=== PATIENT | male | born 1980 | race Caucasian/White ===

== ENCOUNTER 2017-01-30 05:38 | Observation (INO) | payer BC ==
[~2017-01-30] VITALS: Ht 170.2 cm; Wt 96.6 kg
[2017-01-30] VITALS (26 sets, daily range): BP systolic 110–138; BP diastolic 57–81; PULSE 78–101; RESP 6–18; Ht 170.2 cm; Wt 96.6 kg
[~2017-01-30 05:38] MED LIST: HEMOSTATIC MATRIX SYG ZFS ONE; THROMBIN 5000 UNIT VIAL TOP ONE
[2017-01-30] MEDS ORDERED: LACTATED RINGER'S 1,000 ML IV* SCH (06:30)
[2017-01-30] MEDS ORDERED: CEFAZOLIN 2 GM/50 ML (PMX) 50 ML IVPB SCH (06:30)
--- NOTE | 2017-01-30 06:59 | HPN ---
Date/Time of Note Date/Time of Note DATE: 01/30/17 TIME: 06:59 Interval H&P Admission Note Pt. seen H&P reviewed: No system changes JOSE SINGH MD January 30, 2017 06:59
[2017-01-30] MEDS ORDERED: BUPIVACAINE 0.25%/EPI (SDV) 30 ML INJ ONE (07:00)
[2017-01-30] MEDS ORDERED: THROMBIN 5000 UNIT VIAL ONE (07:00)
[2017-01-30] MEDS ORDERED: GELATIN SIZE 100 SPONGE ONE (07:00)
[2017-01-30] MEDS ORDERED: CYCL-319 PO (07:04)
[2017-01-30] MEDS ORDERED: LEVO175T6 PO (07:04)
[2017-01-30] MEDS ORDERED: TRAZ50TA18 PO (07:04)
[2017-01-30] MEDS ORDERED: POLYMYXIN/BACITRACIN 1L IRRIG ONE (07:04)
[2017-01-30] MEDS ORDERED: VALA500T PO (07:04)
[2017-01-30] MEDS ORDERED: SIMV-39 PO (07:04)
[2017-01-30] MEDS ORDERED: LISI20TA11 PO (07:04)
[2017-01-30] MEDS ORDERED: ALPR1TAB7 PO (07:04)
[2017-01-30] MEDS ORDERED: BUPR300T36 PO (07:04)
[2017-01-30] MEDS ORDERED: GABA300C16 PO ×2 (07:04)
[2017-01-30] MEDS ORDERED: METOCLOPRAMIDE 10 MG TAB ONE (07:29)
[2017-01-30] MEDS ORDERED: MIDAZOLAM 1 MG/ML 2 ML INJ ONE (07:29)
[2017-01-30] MEDS ORDERED: PROPOFOL 20 ML ONE ×2 (07:34→08:56)
[2017-01-30] MEDS ORDERED: METOCLOPRAMIDE 10 MG INJ ONE (07:35)
[2017-01-30] MEDS ORDERED: FENTAnyl 50 MCG/ML VIAL ONE ×2 (07:35→11:05)
[2017-01-30] MEDS ORDERED: DEXAMETHASONE 4 MG/ML 1 ML INJ ONE (08:25)
[2017-01-30] MEDS ORDERED: PROPOFOL 100 ML ONE ×2 (08:26→10:48)
[2017-01-30] MEDS ORDERED: POLYMYXIN/BACITRACIN 1L IRRIG IRR ONE (08:46)
[2017-01-30] MEDS ORDERED: BUPIVACAINE 0.25%/EPI (SDV) 30 ML INJ INJ ONE (08:46)
[2017-01-30] MEDS ORDERED: CEFAZOLIN 1 GM INJ ONE (08:56)
[2017-01-30] MEDS ORDERED: SUCCINYLCHOLINE CHLORIDE 100 MG/5 ML SYG IV ONE (08:56)
[2017-01-30] MEDS ORDERED: MEPERIDINE 100 MG INJ ONE (08:57)
[2017-01-30] MEDS ORDERED: NEOSTIGMINE 3 MG/3 ML SYRINGE ONE (10:12)
[2017-01-30] MEDS ORDERED: GLYCOPYRROLATE 0.4 MG INJ ONE (10:12)
[2017-01-30] MEDS ORDERED: METOCLOPRAMIDE 10 MG INJ IV PRN (10:30)
[2017-01-30] MEDS ORDERED: morphine (1 MG/ML) 10ML SYRINGE IV PRN ×2 (10:30)
[2017-01-30] MEDS ORDERED: ONDANSETRON 4 MG INJ IV PRN ×2 (10:30→11:30)
[2017-01-30] MEDS ORDERED: DIPHENHYDRAMINE 50 MG INJ IV PRN (10:30)
[2017-01-30] MEDS ORDERED: MEPERIDINE 25 MG INJ IV PRN (10:30)
[2017-01-30] MEDS ORDERED: OXYCODONE/ACETAMINOPHEN (5/325) TAB PO PRN ×4 (10:30→12:00)
[2017-01-30] MEDS ORDERED: FENTAnyl 50 MCG/ML VIAL IV PRN ×2 (10:30)
[2017-01-30] MEDS ORDERED: EPHEDrine SULFATE 50 MG/5 ML SYG ONE (11:14)
[2017-01-30] MEDS ORDERED: NACL 0.9% 3 ML SYG IV SCH (11:30)
[2017-01-30] MEDS ORDERED: NALOXONE (0.4 MG/ML) INJ IV PRN (11:30)
[2017-01-30] MEDS ORDERED: morphine 4 MG/ML VIAL IV PRN (12:00)
[2017-01-30] MEDS: morphine (1 MG/ML) 10ML SYRINGE IV PRN ×2 (12:16→12:21)
[2017-01-30] MEDS: FENTAnyl 50 MCG/ML VIAL IV PRN ×4 (12:29→12:54)
--- NOTE | 2017-01-30 13:29 | CONS ---
Date/Time of Note Date/Time of Note DATE: 01/30/17 TIME: 13:17 Assessment/Plan Assessment/Plan Problems: (1) Spinal stenosis of lumbar region with neurogenic claudication Status: Chronic Comment: He is postop. We will see how he improves but given the duration of time this will be a slow recovery. However expect his prognosis will be excellent. For now will be continued on his gabapentin to assist with a neurological discomfort (2) Diabetes mellitus type 1 Status: Chronic Comment: He has been maintained on insulin pump as an outpatient for some time successfully. Given that he is not sedated and actually able to contribute to his care will be continued on his insulin pump. We have orders for Accu-Cheks and orders in the chart to cover his medications. Please note that he does not use NovoLog insulin. Apidra will be the preferred insulin. If necessary he will supply is on Apidra insulin via Qualifiers: Qualified Code: E10.9 - Type 1 diabetes mellitus without complication (3) Essential hypertension Status: Chronic Comment: To continue MARCIA inhibitor therapy (4) Hyperlipidemia Status: Chronic Comment: Continue on statin therapy. Qualifiers: Qualified Code: E78.00 - Pure hypercholesterolemia (5) Asthma, moderate persistent Status: Chronic Comment: Patient states that he has bronchitis. However on review of systems he actually has nocturnal awakening every night. This would changes category on the coordination according to the lung Association. I will give him Montella cast while he is here. Also have available breathing treatments Qualifiers: Qualified Code: J45.40 - Moderate persistent asthma without complication (6) Hypothyroidism Status: Chronic Comment: Continue replacement dose therapy Qualifiers: Qualified Code: E03.9 - Acquired hypothyroidism (7) Moderate late onset dysthymic disorder, in partial remission, with anxious distress, with intermittent major depressive episodes, with current episode Status: Chronic Comment: Continue with antidepressant medications as well as benzodiazepines. Please note his dosage of benzodiazepine is what can be described as a healthy dose. Will not try to make any changes here (8) Status post lumbar laminectomy Status: Acute Comment: Aftercare as above and as per Dr. todd Villalta. Please note he has had recent surgery at [facility] to decompress for the thoracic outlet syndrome on the right hand side. Will work with him as carefully but judiciously as possible. Consultation Date/Type/Reason Admit Date/Time 01/30/2017 Date of Consultation: January 30, 2017 Type of Consultation: Internal medicine; endocrinolo Reason for Consultation Diabetes mellitus type 1 on a pump; hypothyroidism; asthma intermittent mild; dysthymia with anxiety; hyperlipidemia; status post lumbar laminectomy Referring Provider: JOSE SINGH MD Hx of Present Illness Charming 36-year-old right-handed male with a 33 year history of diabetes mellitus type 1 maintained on insulin pump therapy. He has generally done well with insulin pump therapy and is actually at the leading edge of the technology. In the near future will be going to closed loop system although that is not pertinent at this moment. Is come into the hospital for spinal surgery by Dr. Singh, and is seen postoperatively in the recovery room. Patient is able to actively interact and contribute details and manage his care. Constitutional: no complaints Eyes: no complaints (No known ophthalmologic complications) ENT: no complaints Respiratory: no complaints Cardiovascular: no complaints Gastrointestinal: no complaints Genitourinary: no complaints Musculoskeletal: no complaints Skin: no complaints Neurologic: no complaints Endocrine: no complaints Past Medical History Diabetes mellitus type 1; hypertension; hyperlipidemia; hypothyroidism; dysthymia with anxiety; spinal stenosis for surgery; HSV-2; chronic back pain; history of right thoracic outlet syndrome Past Surgical History Status post surgical repair right thoracic outlet syndrome; Family History Significant Family History: no pertinent family hx Social History Alcohol Use: none Smoking Status: Current every day smoker Drug Use: none Exam/Review of Systems Vital Signs Vitals Vital Signs Date Time Temp Pulse Resp B/P Pulse Ox O2 Delivery O2 Flow Rate FiO2 01/30/17 12:52 92 13 124/59 97 Nasal Cannula 2.0 01/30/17 11:39 98.0 Exam Immediately postop in recovery. Unable to referral neurologic exam i.e. ambulation Constitutional: alert, oriented Head: atraumatic, normocephalic Eyes: EOMI, nl conjunctiva, nl lids, nl sclera ENMT: mucosa pink and moist, nl external ears & nose, nl lips & teeth, nl nasal mucosa & septum Neck: non-tender, supple Respiratory: clear to auscultation, normal air movement Cardiovascular: nl pulses, regular rate and rhythm Gastrointestinal: nl liver, spleen, non-tender, soft Musculoskeletal: nl extremities to inspection Neurological: APPLICATION DEVELOPMENT SPECIALIST II-XII intact, nl mental status, nl speech Results Results 24 hrs Laboratory Tests Test 01/30/17 06:41 Bedside Glucose 78 Medications Medications Current Medications Lactated Ringer's 1,000 ml @ 0 mls/hr Q0M IV* ; Start 01/30/17 at 06:30 Cefazolin Sodium (Ancef 1 Gm/50 ml (Pmx)) 50 ml @ 100 mls/hr Q6 IVPB ; Start at 12:00; Stop 01/31/17 at 06:29 Ondansetron HCl (Zofran Inj) 4 mg Q6H PRN IV NAUSEA AND/OR VOMITING; Start at 11:30 Naloxone HCl (Narcan) 0.2 mg Q2M PRN IV RR 8 BREATHS/MIN OR LESS; Start at 11:30 Oxycodone/ Acetaminophen (Percocet (5/ 325)) 1 tab Q4H PRN PO PAIN; Start 01/30 at 12:00 Oxycodone/ Acetaminophen (Percocet (5/ 325)) 2 tab Q4H PRN PO PAIN; Start 01/30 at 12:00 Morphine Sulfate (morphine) 3 mg Q3H PRN IV PAIN; Start 01/30/17 at 12:00 Miscellaneous Information (* Miscellaneous Pharmacy Order) Patient is on an insu... ONCE XX ; Start 01/30/17 at 13:30; Status UNV Alprazolam (Xanax) 1 mg TID PRN PO anxiety; Start 01/30/17 at 13:30; Status UNV Bupropion HCl (Wellbutrin Xl) 300 mg DAILY PO ; Start 01/31/17 at 09:00; Status UNV Gabapentin (Neurontin) 300 mg AM PO ; Start 01/31/17 at 09:00; Status UNV Lisinopril (Zestril) 20 mg DAILY PO ; Start 01/31/17 at 09:00; Status UNV Trazodone HCl (Desyrel) 50 mg QHS PO ; Start 01/30/17 at 21:00; Status UNV Valacyclovir HCl (Valtrex) 1,000 mg DAILY PO ; Start 01/31/17 at 09:00; Status UNV Gabapentin (Neurontin) 600 mg QHS PO ; Start 01/30/17 at 21:00; Status UNV Atorvastatin Calcium (Lipitor) 40 mg HS PO ; Start 01/30/17 at 21:00; Status UNV DANA SANTOS MD January 30, 2017 13:28
[2017-01-30] MEDS ORDERED: ALPRAZOLAM 1 MG TAB PO PRN (13:30)
[2017-01-30] MEDS ORDERED: LEVALBUTEROL (NEB) 0.63 MG/3 ML AMP HHN PRN (13:30)
[2017-01-30] MEDS: CEFAZOLIN 1 GM/50 ML (PMX) 50 ML IVPB SCH ×2 (14:25→19:05)
[2017-01-30] MEDS ORDERED: CEPASTAT LOZENGE MT PRN (15:00)
--- NOTE | 2017-01-30 15:57 | OPR ---
Date/Time of Note Date/Time of Note DATE: 01/30/17 TIME: 15:56 Operative Report Free Text/Dictation OPERATION PERFORMED: L5-S1 bilateral partial laminectomy, medial facetectomy, and foraminotomy SURGEON: Jose Singh MD RENAL DIETITIAN: Christian Murphy MD ANESTHESIA: General endotracheal ESTIMATED BLOOD LOSS: 50 mL SURGICAL INDICATION: The patient is a 36 year-old male who presents with an increasing history of bilateral lower extremity pain and numbness (left greater than right). The patient was unable to ambulate significant distances secondary to their pain. The patient had failed conservative treatment. Risks, benefits, and alternatives to a decompressive procedure including but not exclusive of risks of bleeding, infection, nerve injury, cauda equina syndrome, iatrogenic instability, dural tear, myocardial infarction, stroke, pulmonary embolism were explained to the patient, and she wished to proceed. DESCRIPTION OF TECHNIQUE: The patient was identified in the preoperative area and taken to the operating room. Rapid induction of general endotracheal anesthesia was performed. Patient was given 2 g of cefazolin for prophylaxis. The patient was then placed in the prone position on the axis table with all bony prominences well padded. The back was prepped and draped in usual sterile manner. Using a spinal needle and intraoperative fluoroscopy, the L5-S1 level was clearly identified. The skin was injected using 0.25% Marcaine with epinephrine. Longitudinal midline incision was then created using a 10 blade. Further dissection through soft tissue was performed using electrocautery down to the spinous processes. Dissection was taken down the right and left side of the lamina and over the facet joint capsules. A self-retaining retractor was applied. Again, intraoperative fluoroscopy confirmed the level. The microscope was brought into use for microdissection. The high-speed bur was used to thin the caudal aspect of the L5 lamina bilaterally. Kerrison rongeurs were then used to resect a portion of the lamina, the medial facet and the bone overlying the foramen. Ligamentum flavum was also resected using the Kerrison rongeurs. Care was taken to protect the thecal sac throughout the decompressive procedure. The ligamentum was noted to be severely thickened. The dura was also noted to be thickened and white rather than pale blue. There was noted to be compression of the thecal sac with epidural fat. The epidural fat was meticulously removed using a series of curretes and kerrisons and small pituitaries. A portion of the epidural fat was noted to be scarred onto the dura. During the dissection of the epidural fat off the dura, a small dural tear was noted. The very small durotomy was later sealed with a dural patch ( duragen) and duraseal. There was no csf noted to be leaking or nerve roots visualized at the end of the case. Prior to closure, palpation with a ball-tip probe did not reveal any further stenosis in the central, subarticular, or foraminal areas. The exiting L5 nerve root and traversing S1 nerve roots were both directly visualized and noted to be decompressed. The patient was returned to the supine position. They were extubated immediately postoperatively and taken to the recovery room in stable condition. COMPLICATIONS: Dural tear Procedure Date: January 30, 2017 Anesthesia: general Estimated Blood Loss: 50 - 100 ml's Pt Condition Post Procedure: stable Disposition: PACU JOSE SINGH MD January 30, 2017 15:57
[2017-01-30] MEDS ORDERED: LIDOCAINE 2% VISC 15 ML CUP PO PRN (17:00)
[2017-01-30] MEDS: morphine 1 MG/ML 30 ML (PCA) IV SCH (17:16)
[2017-01-30] MEDS: INSULIN PUMP SC SCH ×2 (17:25→21:00)
[2017-01-30] MEDS ORDERED: DIAZEPAM 5 MG/ML SYG IM PRN (17:30)
--- NOTE | 2017-01-30 18:31 | PN ---
Date/Time of Note Date/Time of Note DATE: 01/30/17 TIME: 17:46 anesthesia note: I was called that pt has sore throat , some hoarsness, dysphagia, ulcer in pharynx. pi will be seen as soon as i finsish my current , kimmy. i called Fr. benites for ENT consult to evaluate thr patient. Assessment/Plan VTE Prophylaxis VTE Prophylaxis Intervention: SCD's Lines/Catheters IV Catheter Type (from Nrsg): Peripheral IV Urinary Cath still in place: Yes Subjective 24 Hr Interval Summary Free Text/Dictation I talked to Dr Benites, he cant be able to come here till 23:00 and he asked the t go to his office tomorrow Exam/Review of Systems Vital Signs Vitals Vital Signs Date Time Temp Pulse Resp B/P Pulse Ox O2 Delivery O2 Flow Rate FiO2 01/30/17 15:30 98.2 101 16 132/62 96 Nasal Cannula 2.0 Results Results 24 hrs Laboratory Tests Test 01/30/17 06:41 01/30/17 15:21 01/30/17 17:50 Bedside Glucose 78 141 105 Medications Medications Current Medications Lactated Ringer's 1,000 ml @ 0 mls/hr Q0M IV* ; Start 01/30/17 at 06:30 Cefazolin Sodium (Ancef 1 Gm/50 ml (Pmx)) 50 ml @ 100 mls/hr Q6 IVPB Last administered on 01/30/17t 14:25; Admin Dose 100 MLS/HR; Start 01/30/17 at 12:00 ; Stop 01/31/17 at 06:29 Ondansetron HCl (Zofran Inj) 4 mg Q6H PRN IV NAUSEA AND/OR VOMITING; Start at 11:30 Naloxone HCl (Narcan) 0.2 mg Q2M PRN IV RR 8 BREATHS/MIN OR LESS; Start at 11:30 Oxycodone/ Acetaminophen (Percocet (5/ 325)) 1 tab Q4H PRN PO PAIN; Start 01/30 at 12:00; Status Future Hold Oxycodone/ Acetaminophen (Percocet (5/ 325)) 2 tab Q4H PRN PO PAIN; Start 01/30 at 12:00; Status Future Hold Alprazolam (Xanax) 1 mg TID PRN PO anxiety; Start 01/30/17 at 13:30 Bupropion HCl (Wellbutrin Xl) 300 mg DAILY PO ; Start 01/31/17 at 09:00 Gabapentin (Neurontin) 300 mg AM PO ; Start 01/31/17 at 09:00 Lisinopril (Zestril) 20 mg DAILY PO ; Start 01/31/17 at 09:00 Trazodone HCl (Desyrel) 50 mg QHS PO ; Start 01/30/17 at 21:00 Valacyclovir HCl (Valtrex) 1,000 mg DAILY PO ; Start 01/31/17 at 09:00 Gabapentin (Neurontin) 600 mg QHS PO ; Start 01/30/17 at 21:00 Atorvastatin Calcium (Lipitor) 40 mg HS PO ; Start 01/30/17 at 21:00 Montelukast Sodium (Singulair) 10 mg HS PO ; Start 01/30/17 at 21:00 Phenol (Cepastat Lozenge) 1 lozenge Q1H PRN MT DRY MOUTH; Start 01/30/17 at 15: 00 Morphine Sulfate (morphine) MG/HR CONTINUOUS RATE 1... Q4PCA IV Last administered on 01/30/17t 17:16; Admin Dose 30 MG; Start 01/30/17 at 16:30 Lidocaine (Xylocaine (Viscous)) 15 ml QID PRN PO sore throat after intubaton; Start 01/30/17 at 17:00 Diazepam (Valium) 5 mg Q8H PRN IM PAIN LEVEL 1-5; Start 01/30/17 at 17:30 SANJUANITA GRIER MD January 30, 2017 18:31
[2017-01-30] MEDS: ACCU-CHEK XX SCH (20:11)
[2017-01-30] MEDS: GABAPENTIN 300 MG CAP PO SCH (21:00)
[2017-01-30] MEDS: MONTELUKAST 10 MG TAB PO SCH (21:00)
[2017-01-30] MEDS: ATORVASTATIN 40 MG TAB PO SCH (21:00)
[2017-01-30] MEDS: traZODone 50 MG TAB PO SCH (21:00)
[2017-01-30] MEDS: SOD CHLORIDE 0.45% 1,000 ML IV SCH (21:17)
--- NOTE | 2017-01-30 21:17 | PN ---
Date/Time of Note Date/Time of Note DATE: 01/30/17 TIME: 21:11 Assessment/Plan VTE Prophylaxis VTE Prophylaxis Intervention: SCD's Lines/Catheters IV Catheter Type (from Nrsg): Peripheral IV Urinary Cath still in place: Yes Subjective 24 Hr Interval Summary Free Text/Dictation Anesthesia note: A 36 year old male s/p laminectopmy today, complaing of sore throat, dysphagia after a diffucult intubation. V/S stable, no SOB, or difficulty breathing. there is an laceration on rifght side of uvula. pt denied using lidocaine , states drinking and fluid makes it better. Dr Gomez recommended that pt follow up with him in his office. will visit the patient tomorrow morning Exam/Review of Systems Vital Signs Vitals Vital Signs Date Time Temp Pulse Resp B/P Pulse Ox O2 Delivery O2 Flow Rate FiO2 01/30/17 20:47 18 01/30/17 20:24 98.5 96 134/76 96 01/30/17 15:30 Nasal Cannula 2.0 Results Results 24 hrs Laboratory Tests Test 01/30/17 06:41 01/30/17 15:21 01/30/17 17:50 01/30/17 20:11 Bedside Glucose 78 141 105 84 Medications Medications Current Medications Cefazolin Sodium (Ancef 1 Gm/50 ml (Pmx)) 50 ml @ 100 mls/hr Q6 IVPB Last administered on 01/30/17t 19:05; Admin Dose 100 MLS/HR; Start 01/30/17 at 12:00 ; Stop 01/31/17 at 06:29 Ondansetron HCl (Zofran Inj) 4 mg Q6H PRN IV NAUSEA AND/OR VOMITING; Start at 11:30 Naloxone HCl (Narcan) 0.2 mg Q2M PRN IV RR 8 BREATHS/MIN OR LESS; Start at 11:30 Oxycodone/ Acetaminophen (Percocet (5/ 325)) 1 tab Q4H PRN PO PAIN; Start 01/30 at 12:00; Status Future Hold Oxycodone/ Acetaminophen (Percocet (5/ 325)) 2 tab Q4H PRN PO PAIN; Start 01/30 at 12:00; Status Future Hold Alprazolam (Xanax) 1 mg TID PRN PO anxiety; Start 01/30/17 at 13:30 Bupropion HCl (Wellbutrin Xl) 300 mg DAILY PO ; Start 01/31/17 at 09:00 Gabapentin (Neurontin) 300 mg AM PO ; Start 01/31/17 at 09:00 Lisinopril (Zestril) 20 mg DAILY PO ; Start 01/31/17 at 09:00 Trazodone HCl (Desyrel) 50 mg QHS PO ; Start 01/30/17 at 21:00 Valacyclovir HCl (Valtrex) 1,000 mg DAILY PO ; Start 01/31/17 at 09:00 Gabapentin (Neurontin) 600 mg QHS PO ; Start 01/30/17 at 21:00 Atorvastatin Calcium (Lipitor) 40 mg HS PO ; Start 01/30/17 at 21:00 Montelukast Sodium (Singulair) 10 mg HS PO ; Start 01/30/17 at 21:00 Phenol (Cepastat Lozenge) 1 lozenge Q1H PRN MT DRY MOUTH; Start 01/30/17 at 15: 00 Morphine Sulfate (morphine) MG/HR CONTINUOUS RATE 1... Q4PCA IV Last administered on 01/30/17 17:16; Admin Dose 30 MG; Start 01/30/17 at 16:30 Lidocaine 15 ml 15 ml QID PRN PO sore throat after intubaton Last administered on 01/30/17 19:05; Admin Dose 15 ML; Start 01/30/17 at 17:00 Sodium Chloride (1/2 NS) 1,000 ml @ 60 mls/hr [id number] IV ; Start 01/30/17 at 20 :00 Diazepam (Valium) 2.5 mg Q8H PRN IV PAIN LEVEL 1-5; Start 01/31/17 at 01:30 SANJUANITA GRIER MD January 30, 2017 21:17
[2017-01-30] MEDS: DIAZEPAM 5 MG/ML SYG IV PRN (22:06)
[2017-01-31 00:02] VITALS: BP 131/74; PULSE 101; RESP 16
[2017-01-31] MEDS: CEFAZOLIN 1 GM/50 ML (PMX) 50 ML IVPB SCH ×2 (00:14→06:11)
[2017-01-31] MEDS ORDERED: DIAZEPAM 5 MG/ML SYG IV PRN (01:30)
[2017-01-31] MEDS: morphine 1 MG/ML 30 ML (PCA) IV SCH (02:23)
[2017-01-31] MEDS: DIPHENHYDRAMINE 50 MG INJ IV PRN ×2 (02:45→18:50)
[2017-01-31] MEDS ORDERED: VITAMIN A & D 5 GM OINT PACKET TOP ONE (04:49)
[2017-01-31 05:50] LABS: ADD SCAN DIFF NO
[2017-01-31 05:58] LABS: BASOPHILS % 0.1 % (0.0-2.0); HEMATOCRIT 42.7 % (42.0-52.0); HEMOGLOBIN 14.4 g/dl (14.0-18.0); LYMPHOCYTES # 1.3 10^3/ul (0.8-2.9); LYMPHOCYTES % 10.1 % (15.0-51.0); MEAN CORPUSCULAR HEMOGLOBIN 30.7 pg (29.0-33.0); MEAN CORPUSCULAR HGB CONC 33.7 g/dl (32.0-37.0); MEAN PLATELET VOLUME 11.6 fl (7.4-10.4); MONOCYTE # 1.2 10^3/ul (0.3-0.9); MONOCYTES % 9.6 % (0.0-11.0); NEUTROPHILS % 79.8 % (39.0-77.0); PLATELET COUNT 220 10^3/UL (140-415); RED BLOOD COUNT 4.69 10^6/ul (4.70-6.10); RED CELL DISTRIBUTION WIDTH 13.1 % (11.5-14.5); WHITE BLOOD COUNT 12.5 10^3/ul (4.8-10.8)
[2017-01-31 06:06] LABS: ALBUMIN 3.7 g/dl (3.3-4.9); POTASSIUM 3.9 mmol/L (3.5-5.1)
[2017-01-31 06:09] LABS: ALBUMIN/GLOBULIN RATIO 1.37; BILIRUBIN,INDIRECT 0.2 mg/dl (0-1.1); BILIRUBIN,TOTAL 0.2 mg/dl (0.2-1.3); CALCIUM 8.6 mg/dl (8.4-10.2); CREATININE 0.95 mg/dl (0.61-1.24); TOTAL PROTEIN 6.4 g/dl (6.1-8.1)
[2017-01-31] MEDS: LEVOTHYROXINE 175 MCG TAB PO SCH (06:11)
[2017-01-31] MEDS: INSULIN PUMP SC SCH ×4 (07:20→21:00)
[2017-01-31 07:41] VITALS: BP 125/59; RESP 12
[2017-01-31] MEDS ORDERED: CEFAZOLIN 2 GM/50 ML (PMX) 50 ML IVPB SCH (08:00)
[2017-01-31] MEDS: LISINOPRIL 20 MG TAB PO SCH (08:36)
[2017-01-31] MEDS: BUPROPION (XL) 150 MG TAB PO SCH (08:36)
[2017-01-31] MEDS: GABAPENTIN 300 MG CAP PO SCH ×2 (08:36→20:59)
[2017-01-31] MEDS: ACCU-CHEK XX SCH ×3 (09:50→19:52)
[2017-01-31] MEDS ORDERED: morphine 2 MG INJ IV PRN (13:00)
[2017-01-31] MEDS ORDERED: OXYCODONE/ACETAMINOPHEN (5/325) TAB PO PRN (13:00)
--- NOTE | 2017-01-31 13:30 | RADRPT ---
PROCEDURE: Intraoperative imaging of the lumbar spine with fluoroscopy. CLINICAL INDICATION: Back pain. Intraoperative. TECHNIQUE: 3 images of the lumbar spine were obtained in the operating room with an image intensif ier. No radiologist was in attendance. 5.9 seconds of fluoroscopy time was used. COMPARISON: No prior study is available for comparison. FINDINGS: For the purposes of this report, the last apparent true disc level is considered to be L5-S1. Based on this, posterior needle marker is present at L5-S1. IMPRESSION: 1. Intraoperative imaging of the lumbar spine. RPTAT: QQ .Jeff Chowdhury MD, MD Date Time Electronically viewed and signed by .Jeff Chowdhury MD, on 01/31/2017 13:29 .R/
--- NOTE | 2017-01-31 13:42 | PN ---
Date/Time of Note Date/Time of Note DATE: 01/31/17 TIME: 13:39 Assessment/Plan VTE Prophylaxis VTE Prophylaxis Intervention: SCD's Lines/Catheters IV Catheter Type (from Nrs): Peripheral IV Urinary Cath still in place: Yes Reason Cath still needed: urinary retention Assessment/Plan Chief Complaint/Hosp Course Renetta 36-year-old right-handed male with a 33 year history of diabetes mellitus type 1 maintained on insulin pump therapy. He has generally done well with insulin pump therapy and is actually at the leading edge of the technology. In the near future will be going to closed loop system although that is not pertinent at this moment. Is come into the hospital for spinal surgery by Dr. Horvath, and is seen postoperatively in the recovery room. Patient is able to actively interact and contribute details and manage his care. Problems: (1) Status post lumbar laminectomy Status: Acute Comment: Is progressing postoperatively. He will start physical therapy this afternoon. (2) Diabetes mellitus type 1 Status: Chronic Comment: He is using the insulin pump. In coordination with our nursing staff and the outstanding certified flight instructor or having successful control of his sugars. Qualifiers: Diabetes mellitus complication status: without complication Qualified Code : E10.9 - Type 1 diabetes mellitus without complication (3) Essential hypertension Status: Chronic Comment: Adequate control (4) Hyperlipidemia Status: Chronic Comment: Continue statin therapy Qualifiers: Hyperlipidemia type: pure hypercholesterolemia Qualified Code: E78.00 - Pure hypercholesterolemia (5) Asthma, moderate persistent Status: Chronic Comment: In active on preventative medications Qualifiers: Asthma complication type: uncomplicated Qualified Code: J45.40 - Moderate persistent asthma without complication Subjective 24 Hr Interval Summary Free Text/Dictation Patient resting in bed eating ice cream. He reports his throat is less sore than yesterday. Constitutional: no complaints ENT: sore throat Respiratory: no complaints Cardiovascular: no complaints Gastrointestinal: no complaints Exam/Review of Systems Vital Signs Vitals Vital Signs Date Time Temp Pulse Resp B/P Pulse Ox O2 Delivery O2 Flow Rate FiO2 01/31/17 07:41 98.2 88 12 125/59 96 01/31/17 00:02 Room Air 01/30/17 15:30 2.0 Intake and Output 01/30/17 01/30/17 01/31/17 15:00 23:00 07:00 Intake Total 2000 ml 800 ml 1380 ml Output Total 150 ml 1800 ml 1800 ml Balance 1850 ml -1000 ml -420 ml Exam Constitutional: alert, oriented ENMT: mucosa pink and moist, nl external ears & nose, nl lips & teeth, nl nasal mucosa & septum, other (Uvular swelling and irritation) Respiratory: clear to auscultation, normal air movement Cardiovascular: nl pulses, regular rate and rhythm Extremities: other Results Result Diagram: 01/31/17 0441 01/31/17 0441 Results 24 hrs Laboratory Tests Test 01/30/17 15:21 01/30/17 17:50 01/30/17 20:11 01/30/17 21:19 Bedside Glucose 141 105 84 107 Test 01/31/17 02:53 01/31/17 04:41 01/31/17 08:32 01/31/17 11:45 Bedside Glucose 106 153 101 White Blood Count 12.5 H Red Blood Count 4.69 L Hemoglobin 14.4 Hematocrit 42.7 Mean Corpuscular Volume 91.0 Mean Corpuscular Hemoglobin 30.7 Mean Corpuscular Hemoglobin Concent 33.7 Red Cell Distribution Width 13.1 Platelet Count 220 Mean Platelet Volume 11.6 H Neutrophils % 79.8 H Lymphocytes % 10.1 L Monocytes % 9.6 Eosinophils % 0.0 Basophils % 0.1 Nucleated Red Blood Cells % 0.0 Neutrophils # 10.0 H Lymphocytes # 1.3 Monocytes # 1.2 H Eosinophils # 0.0 Basophils # 0.0 Nucleated Red Blood Cells # 0.0 Sodium Level 138 Potassium Level 3.9 Chloride Level 101 Carbon Dioxide Level 28 Anion Gap 13 Blood Urea Nitrogen 10 Creatinine 0.95 Glucose Level 131 Hemoglobin A1c 7.8 H Calcium Level 8.6 Total Bilirubin 0.2 Direct Bilirubin 0.00 Indirect Bilirubin 0.2 Aspartate Amino Transf (AST/SGOT) 45 Alanine Aminotransferase (ALT/SGPT) 41 Alkaline Phosphatase 50 Total Protein 6.4 Albumin 3.7 Globulin 2.70 Albumin/Globulin Ratio 1.37 Medications Medications Current Medications Ondansetron HCl (Zofran Inj) 4 mg Q6H PRN IV NAUSEA AND/OR VOMITING; Start at 11:30 Naloxone HCl (Narcan) 0.2 mg Q2M PRN IV RR 8 BREATHS/MIN OR LESS; Start at 11:30 Alprazolam (Xanax) 1 mg TID PRN PO anxiety; Start 01/30/17 at 13:30 Bupropion HCl (Wellbutrin Xl) 300 mg DAILY PO Last administered on 01/31/17 08 :36; Admin Dose 300 MG; Start 01/31/17 at 09:00 Gabapentin (Neurontin) 300 mg AM PO Last administered on 01/31/17 08:36; Admin Dose 300 MG; Start 01/31/17 at 09:00 Lisinopril (Zestril) 20 mg DAILY PO Last administered on 01/31/17 08:36; Admin Dose 20 MG; Start 01/31/17 at 09:00 Trazodone HCl (Desyrel) 50 mg QHS PO ; Start 01/30/17 at 21:00 Valacyclovir HCl (Valtrex) 1,000 mg DAILY PO ; Start 01/31/17 at 09:00 Gabapentin (Neurontin) 600 mg QHS PO ; Start 01/30/17 at 21:00 Atorvastatin Calcium (Lipitor) 40 mg HS PO ; Start 01/30/17 at 21:00 Montelukast Sodium (Singulair) 10 mg HS PO ; Start 01/30/17 at 21:00 Phenol (Cepastat Lozenge) 1 lozenge Q1H PRN MT DRY MOUTH; Start 01/30/17 at 15: 00 Lidocaine 15 ml 15 ml QID PRN PO sore throat after intubaton Last administered on 01/30/17 19:05; Admin Dose 15 ML; Start 01/30/17 at 17:00 Sodium Chloride (1/2 NS) 1,000 ml @ 60 mls/hr [id number] IV Last administered on 01/30/17 21:17; Admin Dose 60 MLS/HR; Start 01/30/17 at 20:00 Diazepam (Valium) 2.5 mg Q8H PRN IV SPASMS Last administered on 01/30/17 22:06 ; Admin Dose 2.5 MG; Start 01/30/17 at 22:00 Diphenhydramine HCl 25 mg 25 mg Q6H PRN IV ITCHING Last administered on 02:45; Admin Dose 25 MG; Start 01/31/17 at 03:00 Cefazolin Sodium/ Dextrose (Ancef 2 Gm/50 ml (Pmx)) 50 ml @ 100 mls/hr ONCE IVPB Last administered on 01/31/17t 08:34; Admin Dose 100 MLS/HR; Start at 08:00; Stop 01/31/17 at 20:00 Morphine Sulfate (morphine) 2 mg Q3H PRN IV SEVERE PAIN LEVEL 7-10; Start 01/31 at 13:00 Oxycodone/ Acetaminophen (Endocet (10/ 325)) 1 tab Q4H PRN PO PAIN; Start 01/31 at 13:00 Oxycodone/ Acetaminophen (Percocet (5/ 325)) 1 tab Q4H PRN PO PAIN; Start 01/31 at 13:00 DANA SANTOS MD January 31, 2017 13:42
[2017-01-31] MEDS: SOD CHLORIDE 0.45% 1,000 ML IV SCH (13:44)
[2017-01-31] MEDS: OXYCODONE/ACETAMINOPHEN (10/325) TAB PO PRN ×2 (13:45→18:50)
[2017-01-31] MEDS: VALACYCLOVIR 500 MG TAB PO SCH (14:03)
--- NOTE | 2017-01-31 16:10 | PN ---
Date/Time of Note Date/Time of Note DATE: 01/31/17 TIME: 16:07 Assessment/Plan VTE Prophylaxis VTE Prophylaxis Intervention: ambulation Lines/Catheters IV Catheter Type (from Nrs): Peripheral IV Urinary Cath still in place: Yes Subjective 24 Hr Interval Summary Free Text/Dictation Anesthesia Note: A 36 year old male s/p laminectomy, pt was checked this morning and this evening , doing better, sore mthroat is less. Exam/Review of Systems Vital Signs Vitals Vital Signs Date Time Temp Pulse Resp B/P Pulse Ox O2 Delivery O2 Flow Rate FiO2 01/31/17 07:41 98.2 88 12 125/59 96 01/31/17 00:02 Room Air 01/30/17 15:30 2.0 Intake and Output 01/30/17 01/30/17 01/31/17 15:00 23:00 07:00 Intake Total 2000 ml 800 ml 1380 ml Output Total 150 ml 1800 ml 1800 ml Balance 1850 ml -1000 ml -420 ml Results Result Diagram: 01/31/17 0441 01/31/17 0441 Results 24 hrs Laboratory Tests Test 01/30/17 17:50 01/30/17 20:11 01/30/17 21:19 01/31/17 02:53 Bedside Glucose 105 84 107 106 Test 01/31/17 04:41 01/31/17 08:32 01/31/17 11:45 01/31/17 14:33 White Blood Count 12.5 H Red Blood Count 4.69 L Hemoglobin 14.4 Hematocrit 42.7 Mean Corpuscular Volume 91.0 Mean Corpuscular Hemoglobin 30.7 Mean Corpuscular Hemoglobin Concent 33.7 Red Cell Distribution Width 13.1 Platelet Count 220 Mean Platelet Volume 11.6 H Neutrophils % 79.8 H Lymphocytes % 10.1 L Monocytes % 9.6 Eosinophils % 0.0 Basophils % 0.1 Nucleated Red Blood Cells % 0.0 Neutrophils # 10.0 H Lymphocytes # 1.3 Monocytes # 1.2 H Eosinophils # 0.0 Basophils # 0.0 Nucleated Red Blood Cells # 0.0 Sodium Level 138 Potassium Level 3.9 Chloride Level 101 Carbon Dioxide Level 28 Anion Gap 13 Blood Urea Nitrogen 10 Creatinine 0.95 Glucose Level 131 Hemoglobin A1c 7.8 H Calcium Level 8.6 Total Bilirubin 0.2 Direct Bilirubin 0.00 Indirect Bilirubin 0.2 Aspartate Amino Transf (AST/SGOT) 45 Alanine Aminotransferase (ALT/SGPT) 41 Alkaline Phosphatase 50 Total Protein 6.4 Albumin 3.7 Globulin 2.70 Albumin/Globulin Ratio 1.37 Bedside Glucose 153 101 75 Medications Medications Current Medications Ondansetron HCl (Zofran Inj) 4 mg Q6H PRN IV NAUSEA AND/OR VOMITING; Start at 11:30 Naloxone HCl (Narcan) 0.2 mg Q2M PRN IV RR 8 BREATHS/MIN OR LESS; Start at 11:30 Alprazolam (Xanax) 1 mg TID PRN PO anxiety; Start 01/30/17 at 13:30 Bupropion HCl (Wellbutrin Xl) 300 mg DAILY PO Last administered on 01/31/17 08 :36; Admin Dose 300 MG; Start 01/31/17 at 09:00 Gabapentin (Neurontin) 300 mg AM PO Last administered on 01/31/17 08:36; Admin Dose 300 MG; Start 01/31/17 at 09:00 Lisinopril (Zestril) 20 mg DAILY PO Last administered on 01/31/17 08:36; Admin Dose 20 MG; Start 01/31/17 at 09:00 Trazodone HCl (Desyrel) 50 mg QHS PO ; Start 01/30/17 at 21:00 Valacyclovir HCl (Valtrex) 1,000 mg DAILY PO Last administered on 01/31/17 14: 03; Admin Dose 1,000 MG; Start 01/31/17 at 09:00 Gabapentin (Neurontin) 600 mg QHS PO ; Start 01/30/17 at 21:00 Atorvastatin Calcium (Lipitor) 40 mg HS PO ; Start 01/30/17 at 21:00 Montelukast Sodium (Singulair) 10 mg HS PO ; Start 01/30/17 at 21:00 Phenol (Cepastat Lozenge) 1 lozenge Q1H PRN MT DRY MOUTH; Start 01/30/17 at 15: 00 Lidocaine 15 ml 15 ml QID PRN PO sore throat after intubaton Last administered on 01/30/17 19:05; Admin Dose 15 ML; Start 01/30/17 at 17:00 Sodium Chloride (1/2 NS) 1,000 ml @ 60 mls/hr [id number] IV Last administered on 01/31/17 13:44; Admin Dose 60 MLS/HR; Start 01/30/17 at 20:00 Diazepam (Valium) 2.5 mg Q8H PRN IV SPASMS Last administered on 01/30/17 22:06 ; Admin Dose 2.5 MG; Start 01/30/17 at 22:00 Diphenhydramine HCl 25 mg 25 mg Q6H PRN IV ITCHING Last administered on 02:45; Admin Dose 25 MG; Start 01/31/17 at 03:00 Cefazolin Sodium/ Dextrose (Ancef 2 Gm/50 ml (Pmx)) 50 ml @ 100 mls/hr ONCE IVPB Last administered on 01/31/17 08:34; Admin Dose 100 MLS/HR; Start at 08:00; Stop 01/31/17 at 20:00 Morphine Sulfate (morphine) 2 mg Q3H PRN IV SEVERE PAIN LEVEL 7-10; Start 01/31 at 13:00 Oxycodone/ Acetaminophen (Endocet (10/ 325)) 1 tab Q4H PRN PO PAIN Last administered on 01/31/17 13:45; Admin Dose 1 TAB; Start 01/31/17 at 13:00 Oxycodone/ Acetaminophen (Percocet (5/ 325)) 1 tab Q4H PRN PO PAIN; Start 01/31 at 13:00 SANJUANITA GRIER MD January 31, 2017 16:10
[2017-01-31] MEDS: DIAZEPAM 5 MG/ML SYG IV PRN (16:14)
--- NOTE | 2017-01-31 19:00 | CONS ---
DATE OF ADMISSION: 01/30/2017 DATE OF CONSULTATION: HISTORY OF PRESENT ILLNESS: The patient is a 36-year-old male who is currently postop day #1 status post L5-S1 bilateral decompression for spinal stenosis with epidural lipomatosis. Patient's operat arianna course was complicated with a durotomy. He has currently been on bed rest with head of bed flat . He currently denies any headaches. He denies any issues with his wound. He has actually had his head up to 30 degrees without too much difficulty and denies any headaches. 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 He is reporting some pain in his throat which was likely secon temi to traumatic intubation. Anesthesiologist has been told about this and has evaluated the patie nt. She found a small ulceration, likely caused by traumatic ulceration during intubation. He curr ently reports improvement in his throat pain since yesterday. He has been able to tolerate a liquid diet without difficulty and has been able to swallow pills without difficulty this morning. He has otherwise had no acute overnight events. OBJECTIVE: VITAL SIGNS: Afebrile. Vital signs stable. General: Alert and oriented x3, no acute distress. Spi ne exam: Patient's posterior incision is clean, dry and intact with no evidence of drainage. He cu rrently denies any headaches. He has 4+/5 strength in the bilateral tibia and gastrocnemius soleus, EHL and quadriceps. ASSESSMENT AND PLAN: A 36-year-old male postop day 1 status post L5-S1 decompression complicated wi th durotomy. PLAN: At this time we have elevated the patient's bed to 30 degrees. He will work with [employer] and be out of bed to chair today. We will have him cleared to ambulate as tolerated tomorrow if he does not have any headaches or photophobia or evidence of drainage from his posterior midline incision. We will discontinue the PRES[employer] PROGRAM DIRECTOR. Start him on a regular diet and put him on p.o. Percocet f or pain control. If the patient has no wound issues and is able to clear physical therapy by tomorr ow, he will likely be discharged tomorrow at some point. We will continue to have the medical team follow our patient given his multiple medical issues. Dictated By: JOSE GUTHRIE/ANTONETTE Conf#: [id number] DID#: [id number]
[2017-01-31 20:11] VITALS: BP 115/59; RESP 20
[2017-01-31] MEDS: MONTELUKAST 10 MG TAB PO SCH (20:59)
[2017-01-31] MEDS: traZODone 50 MG TAB PO SCH (20:59)
[2017-01-31] MEDS: ATORVASTATIN 40 MG TAB PO SCH (21:00)
[2017-02-01] MEDS: OXYCODONE/ACETAMINOPHEN (10/325) TAB PO PRN ×4 (02:03→14:18)
[2017-02-01] MEDS: SOD CHLORIDE 0.45% 1,000 ML IV SCH (02:49)
[2017-02-01] MEDS: LEVOTHYROXINE 175 MCG TAB PO SCH (06:10)
[2017-02-01] MEDS: INSULIN PUMP SC SCH ×2 (07:20→11:10)
--- NOTE | 2017-02-01 07:29 | PDOCDIS ---
Discharge Instructions CONDITION Patient Condition: Good HOME CARE INSTRUCTIONS: Diet Instructions: Regular ACTIVITY: Activity Restrictions: Avoid heavy lifting Bathing Restrictions: Shower FOLLOW UP/APPOINTMENTS Appointments Follow-up with JOSE Garza MD February 01, 2017 07:29
[2017-02-01 08:02] VITALS: BP 108/70; RESP 0; RESP 19
[2017-02-01] MEDS: GABAPENTIN 300 MG CAP PO SCH (08:28)
[2017-02-01] MEDS: VALACYCLOVIR 500 MG TAB PO SCH (08:28)
[2017-02-01] MEDS: BUPROPION (XL) 150 MG TAB PO SCH (08:29)
[2017-02-01] MEDS: LISINOPRIL 20 MG TAB PO SCH (08:32)
[2017-02-01] MEDS: ACCU-CHEK XX SCH ×2 (10:04→13:40)
--- NOTE | 2017-02-01 10:39 | PN ---
Date/Time of Note Date/Time of Note DATE: 02/01/17 TIME: 10:37 Assessment/Plan VTE Prophylaxis VTE Prophylaxis Intervention: SCD's Lines/Catheters IV C[facility] Type [facility]from [facility] Saline Lock Urinary Cath still in place: No Assessment/Plan Chief Complaint/Hosp Course Renetta 36-year-old right-handed male with a 33 year history of diabetes mellitus type 1 maintained on insulin pump therapy. He has generally done well with insulin pump therapy and is actually at the leading edge of the technology. In the near future will be going to closed loop system although that is not pertinent at this moment. Is come into the hospital for spinal surgery by Dr. Horvath, and is seen postoperatively in the recovery room. Patient is able to actively interact and contribute details and manage his care. Problems: (1) Status post lumbar laminectomy Status: Acute Comment: He is progressing nicely has been cleared by physical therapy for discharge. From medical standpoint home discharge is appropriate under the current circumstances (2) Moderate late onset dysthymic disorder, in partial remission, with anxious distress, with intermittent major depressive episodes, with current episode Status: Chronic Comment: This is been well controlled in the hospital the patient is well adjusted. (3) Hypothyroidism Status: Chronic Comment: Continue replacement therapy adequately replaced. Qualifiers: Hypothyroidism type: acquired Qualified Code: E03.9 - Acquired hypothyroidism (4) Hyperlipidemia Status: Chronic Comment: Continue statin therapy which is being tolerated Qualifiers: Hyperlipidemia type: pure hypercholesterolemia Qualified Code: E78.00 - Pure hypercholesterolemia (5) Essential hypertension Status: Chronic Comment: Good control (6) Diabetes mellitus type 1 Status: Chronic Comment: He has done well in the hospital using his insulin pump for the type 1 diabetes mellitus. He had one mild low sugar this morning but is compensated nicely. He is stable for discharge from this point of view Qualifiers: Diabetes mellitus complication status: without complication Qualified Code : E10.9 - Type 1 diabetes mellitus without complication Subjective 24 Hr Interval Summary Free Text/Dictation Patient reports that he still has sore throat but less so. No cough shortness of breath chest pain. Constitutional: no complaints ENT: sore throat Respiratory: no complaints Cardiovascular: no complaints Gastrointestinal: no complaints Genitourinary: no complaints Musculoskeletal: back pain Exam/Review of Systems Vital Signs Vitals Vital Signs Date Time Temp Pulse Resp B/P Pulse Ox O2 Delivery O2 Flow Rate FiO2 02/01/17 08:02 98.3 78 19 108/70 94 01/31/17 00:02 Room Air 01/30/17 15:30 2.0 Intake and Output 01/31/17 01/31/17 02/01/17 15:00 23:00 07:00 Intake Total 170 ml 800 ml 800 ml Output Total 1700 ml 1200 ml Balance 170 ml -900 ml -400 ml Exam Constitutional: alert, oriented Neck: non-tender, supple Respiratory: clear to auscultation, normal air movement Cardiovascular: nl pulses, regular rate and rhythm Gastrointestinal: nl liver, spleen, non-tender, soft Results Result Diagram: 01/31/17 0441 01/31/17 0441 Results 24 hrs Laboratory Tests Test 01/31/17 11:45 01/31/17 14:33 01/31/17 17:49 01/31/17 19:52 Bedside Glucose 101 75 87 92 Test 01/31/17 21:10 02/01/17 08:00 02/01/17 08:23 02/01/17 09:14 Bedside Glucose 104 56 L 64 L 129 Test 02/01/17 09:32 Bedside Glucose 220 Medications Medications Current Medications Ondansetron HCl (Zofran Inj) 4 mg Q6H PRN IV NAUSEA AND/OR VOMITING; Start at 11:30 Naloxone HCl (Narcan) 0.2 mg Q2M PRN IV RR 8 BREATHS/MIN OR LESS; Start at 11:30 Alprazolam (Xanax) 1 mg TID PRN PO anxiety Last administered on 01/31/17 22:05 ; Admin Dose 1 MG; Start 01/30/17 at 13:30 Bupropion HCl (Wellbutrin Xl) 300 mg DAILY PO Last administered on 02/01/17 08 :29; Admin Dose 300 MG; Start 01/31/17 at 09:00 Gabapentin (Neurontin) 300 mg AM PO Last administered on 02/01/17 08:28; Admin Dose 300 MG; Start 01/31/17 at 09:00 Lisinopril (Zestril) 20 mg DAILY PO Last administered on 02/01/17 08:32; Admin Dose 20 MG; Start 01/31/17 at 09:00 Trazodone HCl (Desyrel) 50 mg QHS PO Last administered on 01/31/17 20:59; Admin Dose 50 MG; Start 01/30/17 at 21:00 Valacyclovir HCl (Valtrex) 1,000 mg DAILY PO Last administered on 02/01/17 08: 28; Admin Dose 1,000 MG; Start 01/31/17 at 09:00 Gabapentin (Neurontin) 600 mg QHS PO Last administered on 01/31/17 20:59; Admin Dose 600 MG; Start 01/30/17 at 21:00 Atorvastatin Calcium (Lipitor) 40 mg HS PO Last administered on 01/31/17 21:00 ; Admin Dose 40 MG; Start 01/30/17 at 21:00 Montelukast Sodium (Singulair) 10 mg HS PO Last administered on 01/31/17 20:59 ; Admin Dose 10 MG; Start 01/30/17 at 21:00 Phenol (Cepastat Lozenge) 1 lozenge Q1H PRN MT DRY MOUTH; Start 01/30/17 at 15: 00 Lidocaine 15 ml 15 ml QID PRN PO sore throat after intubaton Last administered on 01/30/17 19:05; Admin Dose 15 ML; Start 01/30/17 at 17:00 Sodium Chloride (1/2 NS) 1,000 ml @ 60 mls/hr [id number] IV Last administered on 01/31/17 13:44; Admin Dose 60 MLS/HR; Start 01/30/17 at 20:00 Diazepam (Valium) 2.5 mg Q8H PRN IV SPASMS Last administered on 01/31/17 16:14 ; Admin Dose 2.5 MG; Start 01/30/17 at 22:00 Diphenhydramine HCl (Benadryl) 25 mg Q6H PRN IV ITCHING Last administered on 18:50; Admin Dose 25 MG; Start 01/31/17 at 03:00 Morphine Sulfate (morphine) 2 mg Q3H PRN IV SEVERE PAIN LEVEL 7-10; Start 01/31 at 13:00 Oxycodone/ Acetaminophen (Endocet (10/ 325)) 1 tab Q4H PRN PO PAIN Last administered on 02/01/17 10:12; Admin Dose 1 TAB; Start 01/31/17 at 13:00 Oxycodone/ Acetaminophen (Percocet (5/ 325)) 1 tab Q4H PRN PO PAIN; Start 01/31 at 13:00 DANA SANTOS MD February 01, 2017 10:39
--- NOTE | 2017-02-01 14:34 | PN ---
Date/Time of Note Date/Time of Note DATE: 02/01/17 TIME: 14:32 Assessment/Plan VTE Prophylaxis VTE Prophylaxis Intervention: ambulation Lines/Catheters IV Catheter Type (from Nrs): Saline Lock Urinary Cath still in place: No Subjective 24 Hr Interval Summary Free Text/Dictation Anesthesia note: A 36 year males/p l5-S1 laminectomy POD # 2 ia doing well ,no dysphasia. will discharge today Exam/Review of Systems Vital Signs Vitals Vital Signs Date Time Temp Pulse Resp B/P Pulse Ox O2 Delivery O2 Flow Rate FiO2 02/01/17 08:02 98.3 78 19 108/70 94 01/31/17 00:02 Room Air 01/30/17 15:30 2.0 Intake and Output 01/31/17 01/31/17 02/01/17 15:00 23:00 07:00 Intake Total 170 ml 800 ml 800 ml Output Total 1700 ml 1200 ml Balance 170 ml -900 ml -400 ml Results Result Diagram: 01/31/17 0441 01/31/17 0441 Results 24 hrs Laboratory Tests Test 01/31/17 14:33 01/31/17 17:49 01/31/17 19:52 01/31/17 21:10 Bedside Glucose 75 87 92 104 Test 02/01/17 08:00 02/01/17 08:23 02/01/17 09:14 02/01/17 09:32 Bedside Glucose 56 L 64 L 129 220 Test 02/01/17 12:11 Bedside Glucose 220 Medications Medications Current Medications Ondansetron HCl (Zofran Inj) 4 mg Q6H PRN IV NAUSEA AND/OR VOMITING; Start at 11:30 Naloxone HCl (Narcan) 0.2 mg Q2M PRN IV RR 8 BREATHS/MIN OR LESS; Start at 11:30 Alprazolam (Xanax) 1 mg TID PRN PO anxiety Last administered on 01/31/17 22:05 ; Admin Dose 1 MG; Start 01/30/17 at 13:30 Bupropion HCl (Wellbutrin Xl) 300 mg DAILY PO Last administered on 02/01/17 08 :29; Admin Dose 300 MG; Start 01/31/17 at 09:00 Gabapentin (Neurontin) 300 mg AM PO Last administered on 02/01/17 08:28; Admin Dose 300 MG; Start 01/31/17 at 09:00 Lisinopril (Zestril) 20 mg DAILY PO Last administered on 02/01/17 08:32; Admin Dose 20 MG; Start 01/31/17 at 09:00 Trazodone HCl (Desyrel) 50 mg QHS PO Last administered on 01/31/17 20:59; Admin Dose 50 MG; Start 01/30/17 at 21:00 Valacyclovir HCl (Valtrex) 1,000 mg DAILY PO Last administered on 02/01/17 08: 28; Admin Dose 1,000 MG; Start 01/31/17 at 09:00 Gabapentin (Neurontin) 600 mg QHS PO Last administered on 01/31/17 20:59; Admin Dose 600 MG; Start 01/30/17 at 21:00 Atorvastatin Calcium (Lipitor) 40 mg HS PO Last administered on 01/31/17 21:00 ; Admin Dose 40 MG; Start 01/30/17 at 21:00 Montelukast Sodium (Singulair) 10 mg HS PO Last administered on 01/31/17 20:59 ; Admin Dose 10 MG; Start 01/30/17 at 21:00 Phenol (Cepastat Lozenge) 1 lozenge Q1H PRN MT DRY MOUTH; Start 01/30/17 at 15: 00 Lidocaine 15 ml 15 ml QID PRN PO sore throat after intubaton Last administered on 01/30/17 19:05; Admin Dose 15 ML; Start 01/30/17 at 17:00 Sodium Chloride (1/2 NS) 1,000 ml @ 60 mls/hr [id number] IV Last administered on 01/31/17 13:44; Admin Dose 60 MLS/HR; Start 01/30/17 at 20:00 Diazepam (Valium) 2.5 mg Q8H PRN IV SPASMS Last administered on 01/31/17 16:14 ; Admin Dose 2.5 MG; Start 01/30/17 at 22:00 Diphenhydramine HCl (Benadryl) 25 mg Q6H PRN IV ITCHING Last administered on 18:50; Admin Dose 25 MG; Start 01/31/17 at 03:00 Morphine Sulfate (morphine) 2 mg Q3H PRN IV SEVERE PAIN LEVEL 7-10; Start 01/31 at 13:00 Oxycodone/ Acetaminophen (Endocet (10 325)) 1 tab Q4H PRN PO PAIN Last administered on 02/01/17t 14:18; Admin Dose 1 TAB; Start 01/31/17 at 13:00 Oxycodone/ Acetaminophen (Percocet ( 325)) 1 tab Q4H PRN PO PAIN; Start 01/31 at 13:00 SANJUANITA GRIER MD February 01, 2017 14:34
--- NOTE | 2017-02-02 04:07 | DS ---
DATE OF ADMISSION: 01/30/2017 DATE OF DISCHARGE: 02/01/2017 ADMITTING DIAGNOSIS: Severe spinal stenosis secondary to epidural lipomatosis at L5-S1 with neuroge marlene claudication. DISCHARGE DIAGNOSIS: Severe spinal stenosis secondary to epidural lipomatosis at L5-S1 with neuroge marlene claudication. PROCEDURE DURING THIS ADMISSION: Bilateral L5-S1 decompression. HOSPITAL COURSE: The patient was admitted to the hospital on 01/30/2017 where he underwent a L5-S1 bilateral decompression. His operative course was complicated by a dural tear which was repaired. He was placed on bed rest for 24 hours. On postop day #2, he was ambulating well without difficulty . Prior to discharge, he denied any headaches or photophobia. His posterior midline incision had n o evidence of drainage. He cleared physical therapy prior to discharge. Prior to discharge, his pa in is under good control with p.o. pain medication. ACTIVITY ON DISCHARGE: The patient was told to avoid any heavy lifting, twisting, or bending. WOUND CARE: The patient was told to keep the posterior wound clean, dry, and intact. He was told t o covered the wound when showering. He was told that he would be able to remove the post-surgical d ressing on postop day 4. He is to contact our office if there are any issues with his wound. DIET AT DISCHARGE: The patient was told that he could be on a regular diet. ACTIVITY LIMITATIONS: The patient was told to avoid any heavy lifting greater than 5 to 10 pounds a nd avoid any extensive twisting or bending. FOLLOWUP: The patient was told to follow up with Dr. Horvath's office in 2 weeks for repeat evalu ation. The patient was also told to contact our office at an earlier time if he had any fevers, chi lls, chest pain, shortness of breath, issues with his wound, headaches, or any evidence of wound brent kage. He was also told to contact our office if there were any motor or sensory changes. Dictated By: JOSE GUTHRIE/ANTONETTE Conf#: [id number] DID#: [id number]
== END 2017-02-01 14:30 | disposition home or self-care (01) ==
LOC: SDS 05:38 → MS1 11:26 → INTOOBSV 11:26
PROVIDERS: ADMIT Orthopaedic Surgery; ATTEND Orthopaedic Surgery
DX: M48.06 Spinal stenosis, lumbar region (principal); E11.9 Type 2 diabetes mellitus without complications; E78.5 Hyperlipidemia, unspecified; E03.9 Hypothyroidism, unspecified
CPT/HCPCS: 63047; 72100; 80053; 82962; 83036; 85025; 86850; 86900; 86901; 87086; 96365; 96366; 96375; 96376; 97116; 97162; 97530; 99217; G0378; J0690; J1100; J1200; J2175; J2250; J2270; J2710; J2765; J3010; J3360; J7999

== ENCOUNTER → 2017-03-02 | Outpatient (CLI) | payer BC ==
[~2017-03-02] MED LIST changes: +ALPR1TAB7 PO; +BUPR300T36 PO; +CYCL-319 PO; +GABA300C16 PO; -HEMOSTATIC MATRIX SYG ZFS ONE; +LEVO175T6 PO; +LISI20TA11 PO; +SIMV-39 PO; -THROMBIN 5000 UNIT VIAL TOP ONE; +TRAZ50TA18 PO; +VALA500T PO
[2017-03-02 12:41] LABS: CREATININE 1.09 mg/dl (0.61-1.24)
== END | disposition home or self-care (01) ==
LOC: LAB 11:57
PROVIDERS: ATTEND Orthopaedic Surgery
DX: M48.06 Spinal stenosis, lumbar region (principal)
CPT/HCPCS: 82565; 84520

== ENCOUNTER 2017-03-09 10:40 | Inpatient (IN) | payer BC ==
[2017-03-08 11:10] VITALS: BMI 30.8
[~2017-03-09] VITALS: Ht 170.2 cm; Wt 91.8 kg
[2017-03-09] VITALS (18 sets, daily range): BP systolic 101–136; BP diastolic 56–82; PULSE 82–108; RESP 6–21; Ht 170.2 cm; Wt 91.8 kg
[~2017-03-09 10:40] MED LIST changes: +CEFAZOLIN 2 GM/50 ML (PMX) 50 ML IVPB SCH; +SUCCINYLCHOLINE CHLORIDE 100 MG/5 ML SYG IV ONE
[2017-03-09] MEDS ORDERED: PUMP INSULIN MC (11:24)
[2017-03-09] MEDS ORDERED: BUPIVACAINE 0.25%/EPI (SDV) 30 ML INJ ONE ×2 (12:21→14:30)
[2017-03-09] MEDS ORDERED: BETAMET NA PHOS/AC(6 MG/ML) 5ML INJ ONE (12:21)
[2017-03-09] MEDS ORDERED: GELATIN SIZE 100 SPONGE ONE (12:21)
[2017-03-09] MEDS ORDERED: POLYMYXIN/BACITRACIN 1L IRRIG ONE (12:21)
[2017-03-09] MEDS ORDERED: THROMBIN 5000 UNIT VIAL ONE ×2 (12:22→12:29)
[2017-03-09] MEDS ORDERED: GLYCOPYRROLATE 1 MG INJ ONE (12:46)
[2017-03-09] MEDS ORDERED: ROCURONIUM 50 MG INJ ONE (12:46)
[2017-03-09] MEDS ORDERED: LIDOCAINE 2% (SDV) 5 ML INJ ONE (12:46)
[2017-03-09] MEDS ORDERED: NEOSTIGMINE 3 MG/3 ML SYRINGE ONE (12:46)
[2017-03-09] MEDS ORDERED: PROPOFOL 20 ML ONE (12:46)
[2017-03-09] MEDS ORDERED: MIDAZOLAM 1 MG/ML 2 ML INJ ONE (12:47)
[2017-03-09] MEDS ORDERED: FENTAnyl 50 MCG/ML VIAL ONE (12:47)
[2017-03-09] MEDS ORDERED: DEXAMETHASONE 4 MG/ML 1 ML INJ ONE (12:48)
[2017-03-09] MEDS ORDERED: ONDANSETRON 4 MG INJ ONE (12:48)
[2017-03-09] MEDS ORDERED: LABETALOL HCL 20MG INJ ONE (13:22)
[2017-03-09] MEDS ORDERED: BUPIVACAINE 0.25%/EPI (SDV) 30 ML INJ INJ ONE (14:34)
[2017-03-09] MEDS ORDERED: HYDROCODONE/APAP (5/325) TAB PO PRN ×2 (15:00)
[2017-03-09] MEDS ORDERED: NALOXONE (0.4 MG/ML) INJ IV PRN (15:00)
[2017-03-09] MEDS ORDERED: ACETAMINOPHEN 325 MG TAB PO PRN (15:00)
[2017-03-09] MEDS ORDERED: PROCHLORPERAZINE 10 MG TAB PO PRN (15:00)
[2017-03-09] MEDS ORDERED: morphine (1 MG/ML) 10ML SYRINGE IV ONE (15:10)
[2017-03-09] MEDS: LACTATED RINGER'S 1,000 ML IV* SCH (15:16)
[2017-03-09] MEDS: morphine 1 MG/ML 30 ML (PCA) IV SCH ×2 (15:18→19:11)
[2017-03-09] MEDS ORDERED: hydrALAzine 20 MG INJ IV PRN (15:30)
[2017-03-09] MEDS ORDERED: FENTAnyl 50 MCG/ML VIAL IV PRN ×2 (15:30)
[2017-03-09] MEDS ORDERED: EPHEDrine SULFATE 50 MG/5 ML SYG IV PRN (15:30)
[2017-03-09] MEDS ORDERED: OXYCODONE/ACETAMINOPHEN (5/325) TAB PO PRN ×2 (15:30)
[2017-03-09] MEDS ORDERED: DIPHENHYDRAMINE 50 MG INJ IV PRN (15:30)
[2017-03-09] MEDS ORDERED: morphine (1 MG/ML) 10ML SYRINGE IV PRN (15:30)
[2017-03-09] MEDS ORDERED: LABETALOL HCL 20MG INJ IV PRN (15:30)
[2017-03-09] MEDS ORDERED: MEPERIDINE 25 MG INJ IV PRN (15:30)
[2017-03-09] MEDS ORDERED: ATROPINE 1 MG/10 ML SYRINGE IV PRN (15:30)
[2017-03-09] MEDS ORDERED: ONDANSETRON 4 MG INJ IV PRN (15:30)
[2017-03-09] MEDS: morphine (1 MG/ML) 10ML SYRINGE IV PRN ×2 (15:33→15:40)
--- NOTE | 2017-03-09 15:41 | OPR ---
Date/Time of Note Date/Time of Note DATE: 03/09/17 TIME: 15:01 Operative Report Free Text/Dictation DATE OF OPERATION: 03/09/2017 PREOPERATIVE DIAGNOSES: persistent CSF leak with formation of symptomatic pseudomeningocele after prior L5-S1 decompression POSTOPERATIVE DIAGNOSES: persistent CSF leak with formation of symptomatic pseudomeningocele after prior L5-S1 decompression OPERATION PERFORMED: 1. Repair of Durotomy SURGEON: Jose Singh MD KETTLE CHIPPER: Marybeth Raymond MD ANESTHESIA: General endotracheal ESTIMATED BLOOD LOSS: 100 mL SURGICAL INDICATION: The patient is a 36 year-old male who underwent an L5-S1 decompression on January 30, 2017. This procedure was complicated with a durotomy which was repaired. The patient presented with positional headaches and dizziness 3-4 weeks after surgery. An MRI of the lumbar spine showed a persistent CSF leak with the formation of a pseudomeningocele. Given that the patient was symptomatic with worsening headaches it was decided to take the patient back for surgical repair of the durotomy. Risks, benefits, and alternatives to the procedure including but not exclusive of risks of bleeding, infection, nerve injury, cauda equina syndrome, iatrogenic instability, recurrence of dural tear and failure to repair, myocardial infarction, stroke, pulmonary embolism were explained to the patient, and she wished to proceed. DESCRIPTION OF TECHNIQUE: The patient was identified in the preoperative area and taken to the operating room. Rapid induction of general endotracheal anesthesia was performed. Patient was given 2 g of cefazolin for prophylaxis. The patient was then placed in the prone position on the Humberto table on top of a Alexx frame with all bony prominences well padded. The back was prepped and draped in usual sterile manner. The skin over the prior incision was injected using 0.25% Marcaine with epinephrine. Longitudinal midline incision was then created using a 10 blade in the prior surgical scar. Further dissection through soft tissue was performed using electrocautery down to the laminectomy defect. A self-retaining retractor was applied. The pseudomeningocele was identified and extirpated. The CSF fluid from the pseudomeningocele was sent for aerobic, anaerobic, and fungal culture. The wound was noted to be clean without any evidence of gross purulence. The surgical wound was then explored and the durotomy was located. The microscope was brought into use for better visualization. The wound was copiously irrigated with normal saline. There was a small durotomy identified which was located at the left lateral aspect of the dura. The durotomy was repaired using 5-0 prolene on a tapered needle with a running locking stitch. The valsalva maneuver was performed and this did not show any obvious persistent leak. The repair was reinforced with a 1inch x 1inch piece of DuraGen (patch) that was placed over the repaired durotomy. DuroSeal was then applied. We then placed a medium hemovac deep to the fascia. The fascia was then closed using 0 Vicryl in interrupted fashion. Subcutaneous tissue was closed using 2-0 Vicryl in interrupted fashion. Skin was closed using a running 4-0 Monocryl stitch. The wound was dressed using Dermabond, sterile gauze and Tegaderm. The patient was returned to the supine position. They were extubated immediately postoperatively and taken to the recovery room in stable condition. He will be placed on bed rest for 48-72 hours. COMPLICATIONS: None. Anesthesia: general Estimated Blood Loss: 100 - 150 ml's Complications: None Pt Condition Post Procedure: stable Disposition: PACU JOSE SINGH MD Mar 09, 2017 15:33
[2017-03-09] MEDS: MIDAZOLAM 1 MG/ML 2 ML INJ IV PRN ×2 (15:46→16:24)
--- NOTE | 2017-03-09 15:56 | HP ---
Date/Time of Note Date/Time of Note DATE: 03/09/17 TIME: 15:49 Assessment/Plan VTE Prophylaxis VTE Prophylaxis Intervention: SCD's Lines/Catheters IV Catheter Type (from Nrs): [place] Lock Urinary Cath still in place: Yes Reason Cath still needed: urinary retention Assessment/Plan Problems: (1) Diabetes mellitus type 1 Status: Chronic Comment: Patient will be maintained on his insulin pump while in the hospital. He is awake enough and alert enough that we can go ahead and cooperate with him and coordinate with him regarding his sugars and insulin dosing. Qualifiers: Diabetes mellitus complication status: without complication Qualified Code : E10.9 - Type 1 diabetes mellitus without complication (2) Essential hypertension Status: Chronic Comment: Continue MARCIA inhibitor therapy (3) Hyperlipidemia Status: Chronic Comment: Continue statin therapy Qualifiers: Hyperlipidemia type: pure hypercholesterolemia Qualified Code: E78.00 - Pure hypercholesterolemia (4) Asthma, moderate persistent Status: Chronic Comment: Adequately controlled Qualifiers: Asthma complication type: uncomplicated Qualified Code: J45.40 - Moderate persistent asthma without complication (5) Hypothyroidism Status: Chronic Comment: Continue levothyroxine replacement therapy Qualifiers: Hypothyroidism type: acquired Qualified Code: E03.9 - Acquired hypothyroidism (6) Moderate late onset dysthymic disorder, in partial remission, with anxious distress, with intermittent major depressive episodes, with current episode Status: Chronic Comment: Continue medications stable (7) Status post lumbar laminectomy Status: Acute Comment: As per Dr. Monroe HPI/ZIYAD Admit Date/Time Admit Date/Time Mar 09, 2017 at 10:40 Hx of Present Illness 36-year-old male type I diabetic. He had recently undergone surgery at this facility was discharged February 01, 2017. He had been recuperating and had lifted a heavy object with immediate back pain. It appears he may have developed a dural leak and has had surgery. Please see the surgery and operative notes. ROS Patient complains of significant back pain Constitutional: no complaints Eyes: no complaints ENT: no complaints Respiratory: no complaints Cardiovascular: no complaints Gastrointestinal: no complaints Genitourinary: no complaints Musculoskeletal: no complaints Skin: no complaints Neurologic: no complaints Endocrine: no complaints Lymphatic: no complaints PMH/Family/Social Past Medical History Diabetes mellitus type 1; asthma intermittent mild; anxiety with dysthymia; hypothyroidism; hyperlipidemia; possible dural leak; tobacco abuse Past Surgical History Status post lumbar laminectomy Family History Significant Family History: no pertinent family hx Social History Alcohol Use: occasionally Smoking Status: Current every day smoker Drug Use: none Exam/Review of Systems Vital Signs Vitals Vital Signs Date Time Temp Pulse Resp B/P Pulse Ox O2 Delivery O2 Flow Rate FiO2 03/09/17 15:29 88 8 121/59 93 Room Air 03/09/17 15:24 98.8 Exam Exam male lying in postanesthesia care unit in significant pain Constitutional: alert, oriented Head: atraumatic, normocephalic Eyes: EOMI, nl conjunctiva, nl lids, nl sclera ENMT: mucosa pink and moist, nl external ears & nose, nl lips & teeth, nl nasal mucosa & septum Neck: non-tender, supple Respiratory: clear to auscultation, normal air movement Cardiovascular: nl pulses, regular rate and rhythm Gastrointestinal: nl liver, spleen, non-tender, soft Musculoskeletal: nl extremities to inspection, nl gait and stance Extremities: normal pulses Neurological: TRUST AND ESTATES PARALEGAL II-XII intact, nl mental status, nl speech, nl strength Medications Medications Current Medications Lactated Ringer's (Lr) 1,000 ml @ 20 mls/hr Q24H IV* Last administered on 03/09t 15:16; Admin Dose 20 MLS/HR; Start 03/09/17 at 07:00; Stop 03/11/17 at 08: 59 Acetaminophen/ Hydrocodone Bitart ([place] (5/325)) 1 tab Q4H PRN PO PAIN LEVEL 1 -5; Start 03/09/17 at 15:00 Acetaminophen/ Hydrocodone Bitart 2 tab 2 tab Q4H PRN PO PAIN LEVEL 6-10; Start 03/09/17 at 15:00 Cefazolin Sodium (Ancef 1 Gm/50 ml (Pmx)) 50 ml @ 100 mls/hr Q6 IVPB ; Start at 18:00; Stop 03/10/17 at 12:29 Prochlorperazine (Compazine) 10 mg Q4H PRN PO NAUSEA AND/OR VOMITING; Start at 15:00 Ondansetron HCl (Zofran Inj) 4 mg Q6H PRN IV NAUSEA AND/OR VOMITING; Start at 15:00 Acetaminophen (Tylenol Tab) 650 mg Q4H PRN PO TEMP GREATER THAN 101F OR GUTIERREZ; Start 03/09/17 at 15:00 Morphine Sulfate (morphine) Q4PCA IV Last administered on 03/09/17t 15:18; Admin Dose 30 MG; Start 03/09/17 at 15:00 Naloxone HCl (Narcan) 0.2 mg Q2M PRN IV RR 8 BREATHS/MIN OR LESS; Start at 15:00 Miscellaneous Information (* Miscellaneous Pharmacy Order) Patient has his own insulin p... ONCE XX ; Start 03/09/17 at 16:00; Status UNV Alprazolam (Xanax) 1 mg TID PO ; Start 03/09/17 at 21:00; Status UNV Bupropion HCl (Wellbutrin Xl) 300 mg DAILY PO ; Start 03/10/17 at 09:00; Status UNV Cyclobenzaprine HCl (Flexeril) 10 mg TID PO ; Start 03/09/17 at 21:00; Status UNV Gabapentin (Neurontin) 300 mg AM PO ; Start 03/10/17 at 09:00; Status UNV Gabapentin (Neurontin) 600 mg DAILY PRN PO PM; Start 03/09/17 at 16:00; Status UNV Lisinopril (Zestril) 20 mg DAILY PO ; Start 03/10/17 at 09:00; Status UNV Trazodone HCl (Desyrel) 50 mg QHS PO ; Start 03/09/17 at 21:00; Status UNV Valacyclovir HCl (Valtrex) 1,000 mg DAILY PO ; Start 03/10/17 at 09:00; Status UNV Miscellaneous Information 40 mg QHS PO ; Start 03/09/17 at 21:00; Status UNV DANA SANTOS MD Mar 09, 2017 15:56
[2017-03-09] MEDS ORDERED: GABAPENTIN 300 MG CAP PO PRN ×2 (16:00→17:00)
[2017-03-09] MEDS ORDERED: CEFAZOLIN 1 GM/50 ML (PMX) 50 ML IVPB SCH (18:00)
[2017-03-09] MEDS ORDERED: CEFAZOLIN 1 GM/50 ML (PMX) 50 ML IVPB ONE (19:03)
[2017-03-09] MEDS: CEFAZOLIN 1 GM/50 ML (PMX) 50 ML IVPB SCH (19:10)
[2017-03-09] MEDS: traZODone 50 MG TAB PO SCH (21:53)
[2017-03-09] MEDS: CYCLOBENZAPRINE 10 MG TAB PO SCH (21:54)
[2017-03-09] MEDS: ALPRAZOLAM 1 MG TAB PO SCH (21:54)
[2017-03-09] MEDS: ATORVASTATIN 20 MG TAB PO SCH (21:54)
[2017-03-10] VITALS: BP 114/59; RESP 18
[2017-03-10] MEDS: CEFAZOLIN 1 GM/50 ML (PMX) 50 ML IVPB SCH ×3 (00:25→12:39)
[2017-03-10] MEDS: morphine 1 MG/ML 30 ML (PCA) IV SCH ×3 (01:50→19:09)
[2017-03-10 05:15] LABS: HEMATOCRIT 44.2 % (42.0-52.0); HEMOGLOBIN 15.4 g/dl (14.0-18.0)
[2017-03-10 05:47] LABS: CALCIUM 9.9 mg/dl (8.4-10.2); CREATININE 1.02 mg/dl (0.61-1.24); POTASSIUM 4.8 mmol/L (3.5-5.1)
[2017-03-10] MEDS: LEVOTHYROXINE 175 MCG TAB PO SCH (06:11)
[2017-03-10 07:57] VITALS: BP 113/60; RESP 19
[2017-03-10] MEDS ORDERED: LIDOCAINE 5% 35 GM OINT TOP PRN (08:00)
[2017-03-10] MEDS: CYCLOBENZAPRINE 10 MG TAB PO SCH ×3 (09:07→21:03)
[2017-03-10] MEDS: LISINOPRIL 20 MG TAB PO SCH (09:07)
[2017-03-10] MEDS: GABAPENTIN 300 MG CAP PO SCH (09:07)
[2017-03-10] MEDS: VALACYCLOVIR 500 MG TAB PO SCH (09:08)
[2017-03-10] MEDS: BUPROPION (XL) 150 MG TAB PO SCH (09:08)
[2017-03-10] MEDS: ALPRAZOLAM 1 MG TAB PO SCH ×3 (10:24→21:03)
[2017-03-10] MEDS: PT'S OWN INSULIN PUMP SC SCH ×3 (11:10→21:00)
[2017-03-10] MEDS ORDERED: ZOLPIDEM 5 MG TAB PO PRN (12:00)
--- NOTE | 2017-03-10 12:05 | CONS ---
Date/Time of Note Date/Time of Note DATE: 03/10/17 TIME: 12:00 Consultation Date/Type/Reason Admit Date/Time Mar 09, 2017 at 10:40 Initial Consult Date 24 HR Interval Summary Free Text/Dictation Ortho Spine Progress Note S: 36 yo Male POD#1 s/p repair of durotomy. No acute events over-night events. He denies any headaches. His pain is under control with morphine [employer]. Complains of some irritation in area of catheter. He is on bedrest. O: AFVSS (hemovac output 0) Gen : AAOx3, NAD Spine exam: 01/13 TA/GS/EHL, +SILT L3-S1 A/P: 36 yo Male POD#1 s/p repair of durotomy. 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 continue bedrest x 48 hrs 3. ambien 5 mg PO QHS prn insomnia 4. lidocaine jelly for catheter irriation 5. medical management as per Dr. Burnette Exam/Review of Systems Vital Signs Vitals Vital Signs Date Time Temp Pulse Resp B/P Pulse Ox O2 Delivery O2 Flow Rate FiO2 03/10/17 07:57 98.0 82 19 113/60 99 03/09/17 21:54 Nasal Cannula 2.0 Intake and Output 03/09/17 03/09/17 03/10/17 15:00 23:00 07:00 Intake Total 1500 ml 990 ml Output Total 290 ml 905 ml 1000 ml Balance -290 ml 595 ml -10 ml Results Result Diagram: 03/10/17 0435 03/10/17 0415 Results 24 hrs Laboratory Tests Test 03/09/17 12:23 03/09/17 15:07 03/09/17 18:09 03/09/17 21:46 Bedside Glucose 240 H 182 164 202 Test 03/10/17 02:08 03/10/17 04:15 03/10/17 04:35 03/10/17 09:27 Bedside Glucose 163 142 Sodium Level 137 Potassium Level 4.8 Chloride Level 97 Carbon Dioxide Level 29 Anion Gap 16 Blood Urea Nitrogen 11 Creatinine 1.02 Glucose Level 163 Calcium Level 9.9 Hemoglobin 15.4 Hematocrit 44.2 Medications Medications Current Medications Lactated Ringer's (Lr) 1,000 ml @ 20 mls/hr Q24H IV* Last administered on 03/09 15:16; Admin Dose 20 MLS/HR; Start 03/09/17 at 07:00; Stop 03/11/17 at 08: 59 Acetaminophen/ Hydrocodone Bitart ([place] (5/325)) 1 tab Q4H PRN PO PAIN LEVEL 1 -5; Start 03/09/17 at 15:00 Acetaminophen/ Hydrocodone Bitart ([place] (5/325)) 2 tab Q4H PRN PO PAIN LEVEL 6 -10; Start 03/09/17 at 15:00 Prochlorperazine (Compazine) 10 mg Q4H PRN PO NAUSEA AND/OR VOMITING; Start at 15:00 Ondansetron HCl (Zofran Inj) 4 mg Q6H PRN IV NAUSEA AND/OR VOMITING; Start at 15:00 Acetaminophen (Tylenol Tab) 650 mg Q4H PRN PO TEMP GREATER THAN 101F OR GUTIERREZ; Start 03/09/17 at 15:00 Morphine Sulfate (morphine) Q4PCA IV Last administered on 03/10/17 01:50; Admin Dose 30 MG; Start 03/09/17 at 15:00 Naloxone HCl (Narcan) 0.2 mg Q2M PRN IV RR 8 BREATHS/MIN OR LESS; Start at 15:00 Alprazolam (Xanax) 1 mg TID PO Last administered on 03/10/17 10:24; Admin Dose 1 MG; Start 03/09/17 at 21:00 Bupropion HCl (Wellbutrin Xl) 300 mg DAILY PO Last administered on 03/10/17 09 :08; Admin Dose 300 MG; Start 03/10/17 at 09:00 Cyclobenzaprine HCl (Flexeril) 10 mg TID PO Last administered on 03/10/17 09: 07; Admin Dose 10 MG; Start 03/09/17 at 21:00 Gabapentin (Neurontin) 300 mg AM PO Last administered on 03/10/17 09:07; Admin Dose 300 MG; Start 03/10/17 at 09:00 Lisinopril (Zestril) 20 mg DAILY PO Last administered on 03/10/17 09:07; Admin Dose 20 MG; Start 03/10/17 at 09:00 Trazodone HCl (Desyrel) 50 mg QHS PO Last administered on 03/09/17 21:53; Admin Dose 50 MG; Start 03/09/17 at 21:00 Valacyclovir HCl (Valtrex) 1,000 mg DAILY PO Last administered on 03/10/17 09: 08; Admin Dose 1,000 MG; Start 03/10/17 at 09:00 Atorvastatin Calcium (Lipitor) 20 mg DAILY@21 PO Last administered on 21:54; Admin Dose 20 MG; Start 03/09/17 at 21:00 Gabapentin 600 mg 600 mg QHS PRN PO BACK PAIN; Start 03/09/17 at 17:00 Cefazolin Sodium (Ancef 1 Gm/50 ml (Pmx)) 50 ml @ 100 mls/hr Q6 IVPB Last administered on 03/10/17 06:11; Admin Dose 100 MLS/HR; Start 03/09/17 at 19:00 ; Stop 03/10/17 at 12:29 Lidocaine (Lidocaine 5% Oint) 1 applic TID PRN TOP IRRITATION Last administered on 03/10/17 10:25; Admin Dose 1 APPLIC; Start 03/10/17 at 08:00 Diagnostic Test (Pha) (Accu-Chek) 1 ea 01 XX ; Start 03/11/17 at 01:00 JOSE SINGH MD Mar 10, 2017 12:05
[2017-03-10] MEDS: LIDOCAINE 5% 35 GM OINT TOP SCH ×3 (13:04→21:04)
--- NOTE | 2017-03-10 13:39 | PN ---
Date/Time of Note Date/Time of Note DATE: 03/10/17 TIME: 13:35 Assessment/Plan VTE Prophylaxis VTE Prophylaxis Intervention: contraindicated Lines/Catheters IV Catheter Type (from Nrs): Peripheral IV Urinary Cath still in place: Yes Reason Cath still needed: urinary retention (Patient is on enforced bed rest 48 hours.) Assessment/Plan Problems: (1) Diabetes mellitus type 1 Status: Chronic Comment: Patient remains actively on his insulin pump. This is going well. His blood sugar control is excellent using the pump. Continue same therapeutics and support. Qualifiers: Diabetes mellitus complication status: without complication Qualified Code : E10.9 - Type 1 diabetes mellitus without complication (2) Essential hypertension Status: Chronic Comment: Good control on outpatient regimen which is been continued. No medication side effects or untoward effects (3) Hyperlipidemia Status: Chronic Comment: Continue on statin therapy Qualifiers: Hyperlipidemia type: pure hypercholesterolemia Qualified Code: E78.00 - Pure hypercholesterolemia (4) Asthma, moderate persistent Status: Chronic Comment: This is well controlled on current medication regimen Qualifiers: Asthma complication type: uncomplicated Qualified Code: J45.40 - Moderate persistent asthma without complication (5) Hypothyroidism Status: Chronic Comment: Continue replacement therapy/stable Qualifiers: Hypothyroidism type: acquired Qualified Code: E03.9 - Acquired hypothyroidism (6) Status post lumbar laminectomy Status: Acute Comment: He is status post repair of a dural leak. He is recuperating. Will follow the orders from spinal surgeon closely Subjective 24 Hr Interval Summary Free Text/Dictation Patient lying in bed flat as ordered by spinal surgeon. He reports his muscle spasm pain is much better. Some pain from Clemens catheter but that is improved with lidocaine. Constitutional: no complaints (No fevers chills or sweats) Respiratory: no complaints (No cough no wheezing no shortness of breath) Cardiovascular: no complaints (No chest pain palpitations orthopnea or PND) Gastrointestinal: nausea (Complains of nausea without emesis no abdominal pain) Musculoskeletal: back pain Exam/Review of Systems Vital Signs Vitals Vital Signs Date Time Temp Pulse Resp B/P Pulse Ox O2 Delivery O2 Flow Rate FiO2 03/10/17 07:57 98.0 82 19 113/60 99 03/09/17 21:54 Nasal Cannula 2.0 Intake and Output 03/09/17 03/09/17 03/10/17 15:00 23:00 07:00 Intake Total 1500 ml 990 ml Output Total 290 ml 905 ml 1000 ml Balance -290 ml 595 ml -10 ml Exam Constitutional: alert, oriented Neck: non-tender, supple Respiratory: clear to auscultation, normal air movement Cardiovascular: nl pulses, regular rate and rhythm Gastrointestinal: nl liver, spleen, non-tender, soft Results Result Diagram: 03/10/17 0435 03/10/17 0415 Results 24 hrs Laboratory Tests Test 03/09/17 15:07 03/09/17 18:09 03/09/17 21:46 03/10/17 02:08 Bedside Glucose 182 164 202 163 Test 03/10/17 04:15 03/10/17 04:35 03/10/17 09:27 03/10/17 12:37 Sodium Level 137 Potassium Level 4.8 Chloride Level 97 Carbon Dioxide Level 29 Anion Gap 16 Blood Urea Nitrogen 11 Creatinine 1.02 Glucose Level 163 Calcium Level 9.9 Hemoglobin 15.4 Hematocrit 44.2 Bedside Glucose 142 112 Medications Medications Current Medications Lactated Ringer's (Lr) 1,000 ml @ 20 mls/hr Q24H IV* Last administered on 03/09 15:16; Admin Dose 20 MLS/HR; Start 03/09/17 at 07:00; Stop 03/11/17 at 08: 59 Acetaminophen/ Hydrocodone Bitart ([place] (5/325)) 1 tab Q4H PRN PO PAIN LEVEL 1 -5; Start 03/09/17 at 15:00 Acetaminophen/ Hydrocodone Bitart ([place] (5/325)) 2 tab Q4H PRN PO PAIN LEVEL 6 -10; Start 03/09/17 at 15:00 Prochlorperazine (Compazine) 10 mg Q4H PRN PO NAUSEA AND/OR VOMITING; Start at 15:00 Ondansetron HCl (Zofran Inj) 4 mg Q6H PRN IV NAUSEA AND/OR VOMITING; Start at 15:00 Acetaminophen (Tylenol Tab) 650 mg Q4H PRN PO TEMP GREATER THAN 101F OR GUTIERREZ; Start 03/09/17 at 15:00 Morphine Sulfate (morphine) Q4PCA IV Last administered on 03/10/17 01:50; Admin Dose 30 MG; Start 03/09/17 at 15:00 Naloxone HCl (Narcan) 0.2 mg Q2M PRN IV RR 8 BREATHS/MIN OR LESS; Start at 15:00 Alprazolam (Xanax) 1 mg TID PO Last administered on 03/10/17 10:24; Admin Dose 1 MG; Start 03/09/17 at 21:00 Bupropion HCl (Wellbutrin Xl) 300 mg DAILY PO Last administered on 03/10/17 09 :08; Admin Dose 300 MG; Start 03/10/17 at 09:00 Cyclobenzaprine HCl (Flexeril) 10 mg TID PO Last administered on 03/10/17 13: 03; Admin Dose 10 MG; Start 03/09/17 at 21:00 Gabapentin (Neurontin) 300 mg AM PO Last administered on 03/10/17 09:07; Admin Dose 300 MG; Start 03/10/17 at 09:00 Lisinopril (Zestril) 20 mg DAILY PO Last administered on 03/10/17 09:07; Admin Dose 20 MG; Start 03/10/17 at 09:00 Trazodone HCl (Desyrel) 50 mg QHS PO Last administered on 03/09/17 21:53; Admin Dose 50 MG; Start 03/09/17 at 21:00 Valacyclovir HCl (Valtrex) 1,000 mg DAILY PO Last administered on 03/10/17 09: 08; Admin Dose 1,000 MG; Start 03/10/17 at 09:00 Atorvastatin Calcium (Lipitor) 20 mg DAILY@21 PO Last administered on 21:54; Admin Dose 20 MG; Start 03/09/17 at 21:00 Gabapentin (Neurontin) 600 mg QHS PRN PO BACK PAIN; Start 03/09/17 at 17:00 Diagnostic Test (Pha) (Accu-Chek) 1 ea 01 XX ; Start 03/11/17 at 01:00 Lidocaine (Lidocaine 5% Oint) 1 applic Q4H TOP Last administered on 03/10/17 13:04; Admin Dose 1 APPLIC; Start 03/10/17 at 13:00 DANA SANTOS MD Mar 10, 2017 13:38
[2017-03-10] MEDS: ONDANSETRON 4 MG INJ IV PRN ×2 (14:10→20:54)
[2017-03-10] MEDS: LACTATED RINGER'S 1,000 ML IV* SCH (18:19)
[2017-03-10] MEDS ORDERED: CEFAZOLIN 1 GM/50 ML (PMX) 50 ML IVPB SCH (19:00)
[2017-03-10 19:15] VITALS: BP 94/52; RESP 16
[2017-03-10 20:00] VITALS: BP 94/52; PULSE 107; RESP 16
[2017-03-10] MEDS ORDERED: GLUCAGON 1 MG INJ IM PRN (21:00)
[2017-03-10] MEDS ORDERED: GLUCOSE GEL 15 GRAM TUBE PO PRN ×2 (21:00)
[2017-03-10] MEDS ORDERED: GLUCOSE GEL 15 GRAM TUBE BUCCAL PRN (21:00)
[2017-03-10] MEDS ORDERED: DEXTROSE 50% 50 ML SYRINGE IV PRN ×2 (21:00)
[2017-03-10] MEDS ORDERED: FAMOTIDINE 20 MG TAB PO PRN (21:00)
[2017-03-10] MEDS: traZODone 50 MG TAB PO SCH (21:03)
[2017-03-10] MEDS: SALMETEROL/FLUTICASONE 250/50 INHA INH SCH (21:04)
[2017-03-10] MEDS: ATORVASTATIN 20 MG TAB PO SCH (21:04)
[2017-03-11] MEDS ORDERED: ACCUCHECK 2 AM XX SCH (01:00)
[2017-03-11] MEDS: LIDOCAINE 5% 35 GM OINT TOP SCH ×6 (01:09→21:00)
[2017-03-11] MEDS ORDERED: CA CARBONATE (250 MG/ML PO SYG) PO PRN (01:30)
--- NOTE | 2017-03-11 03:27 | RADRPT ---
PROCEDURE: XR Abdomen. CLINICAL INDICATION: Abdominal pain. TECHNIQUE: 2 frontal views of the abdomen. COMPARISON: None. FINDINGS: There is mild to moderate gaseous distension of the small and large bowel. There is no bowel obstru ction or free air. There is no organomegaly. There is no abnormal calcification. The osseous stru ctures are unremarkable. IMPRESSION: Mild to moderate gaseous distension of the small and large bowel compatible with an ileus. There is no definite obstruction; however, follow-up is recommended. .Tone Hodge MD, Date Time Electronically viewed and signed by .Tone Hodge MD, MD on 03/11/2017 03:27 .T/
[2017-03-11 05:09] LABS: BASOPHILS % 0.3 % (0.0-2.0); EOSINOPHILS # 0.2 10^3/ul (0.0-0.5); EOSINOPHILS % 1.5 % (0.0-7.0); HEMATOCRIT 42.1 % (42.0-52.0); LYMPHOCYTES # 1.3 10^3/ul (0.8-2.9); LYMPHOCYTES % 13.2 % (15.0-51.0); MEAN CORPUSCULAR HEMOGLOBIN 30.6 pg (29.0-33.0); MEAN CORPUSCULAR HGB CONC 33.3 g/dl (32.0-37.0); MEAN CORPUSCULAR VOLUME 91.9 fl (82.0-101.0); MEAN PLATELET VOLUME 11.4 fl (7.4-10.4); MONOCYTE # 1.2 10^3/ul (0.3-0.9); MONOCYTES % 12.2 % (0.0-11.0); NEUTROPHIL # 7.3 10^3/ul (1.6-7.5); NEUTROPHILS % 72.4 % (39.0-77.0); PLATELET COUNT 168 10^3/UL (140-415); RED BLOOD COUNT 4.58 10^6/ul (4.70-6.10); RED CELL DISTRIBUTION WIDTH 13.4 % (11.5-14.5)
[2017-03-11 05:17] LABS: ADD SCAN DIFF NO
[2017-03-11 05:30] LABS: ALBUMIN 4.2 g/dl (3.3-4.9); ALBUMIN/GLOBULIN RATIO 2.21; BILIRUBIN,INDIRECT 0.3 mg/dl (0-1.1); BILIRUBIN,TOTAL 0.3 mg/dl (0.2-1.3); CREATININE 1.63 mg/dl (0.61-1.24); POTASSIUM 4.7 mmol/L (3.5-5.1); TOTAL PROTEIN 6.1 g/dl (6.1-8.1)
[2017-03-11] MEDS: LEVOTHYROXINE 175 MCG TAB PO SCH (06:10)
[2017-03-11] MEDS: ONDANSETRON 4 MG INJ IV PRN (06:10)
[2017-03-11] MEDS: SOD CHLORIDE 0.9% 1,000 ML IV SCH ×2 (07:00→15:35)
[2017-03-11 08:10] VITALS: BP 115/59; RESP 20
[2017-03-11] MEDS: PT'S OWN INSULIN PUMP SC SCH ×4 (08:45→21:00)
[2017-03-11] MEDS: BUPROPION (XL) 150 MG TAB PO SCH (09:00)
[2017-03-11] MEDS: LISINOPRIL 20 MG TAB PO SCH (09:00)
[2017-03-11] MEDS: GABAPENTIN 300 MG CAP PO SCH (09:00)
[2017-03-11] MEDS: VALACYCLOVIR 500 MG TAB PO SCH (09:00)
[2017-03-11] MEDS: ALPRAZOLAM 1 MG TAB PO SCH ×3 (09:00→20:53)
[2017-03-11] MEDS: ONDANSETRON 4 MG INJ IV STA ×2 (09:37→09:57)
[2017-03-11] MEDS ORDERED: ONDANSETRON 4 MG INJ IV STA (09:44)
[2017-03-11] MEDS ORDERED: ONDANSETRON 4 MG INJ IV PRN (10:00)
[2017-03-11] MEDS ORDERED: morphine 4 MG/ML VIAL IV PRN (10:30)
--- NOTE | 2017-03-11 10:36 | CONS ---
Date/Time of Note Date/Time of Note DATE: 03/11/17 TIME: 10:26 Consultation Date/Type/Reason Admit Date/Time Mar 09, 2017 at 10:40 24 HR Interval Summary Free Text/Dictation Orthopaedic Spine Progress Note S: 36 yo Male POD#2 s/p repair of durotomy. Patients IV was infiltrated over night. He had pain and nausea as he was unable to get meds. IV replaced this am by charge nurse. Pain and nausea under control. He also had some abdominal pain yesterday which worsened last night. He reports that this is better now as he started passing some gas. He denies any headaches. He is on bedrest until tomorrow am. O: AFVSS (hemovac output 30 cc over 24 hours) Gen : AAOx3, NAD Spine exam: 01/13 TA/GS/EHL, +SILT L3-S1 Abdomen: modertate distenstion. non tender to palpation. 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 continue bedrest until tomorrow am 3. ambien 5 mg PO QHS prn insomnia 4. lidocaine jelly for catheter irriation 5. medical management as per Dr. Burnette Exam/Review of Systems Vital Signs Vitals Vital Signs Date Time Temp Pulse Resp B/P Pulse Ox O2 Delivery O2 Flow Rate FiO2 03/11/17 08:10 97.4 92 20 115/59 94 03/09/17 21:54 Nasal Cannula 2.0 Intake and Output 03/10/17 03/10/17 03/11/17 15:00 23:00 07:00 Intake Total 240 ml 240 ml Output Total 30 ml 300 ml Balance 210 ml -60 ml Results Result Diagram: 03/11/17 0425 03/11/17 0425 Results 24 hrs Laboratory Tests Test 03/10/17 12:37 03/10/17 17:56 03/10/17 18:10 03/10/17 18:32 Bedside Glucose 112 48 *L 49 *L 48 *L Test 03/10/17 18:38 03/10/17 18:40 03/10/17 20:00 03/10/17 22:43 Bedside Glucose 51 L 191 224 H Glucose Level 49 #*L Test 03/11/17 00:56 03/11/17 04:25 03/11/17 09:01 Bedside Glucose 237 H 227 H White Blood Count 10.0 Red Blood Count 4.58 L Hemoglobin 14.0 Hematocrit 42.1 Mean Corpuscular Volume 91.9 Mean Corpuscular Hemoglobin 30.6 Mean Corpuscular Hemoglobin Concent 33.3 Red Cell Distribution Width 13.4 Platelet Count 168 # Mean Platelet Volume 11.4 H Neutrophils % 72.4 Lymphocytes % 13.2 L Monocytes % 12.2 H Eosinophils % 1.5 Basophils % 0.3 Nucleated Red Blood Cells % 0.0 Neutrophils # 7.3 Lymphocytes # 1.3 Monocytes # 1.2 H Eosinophils # 0.2 Basophils # 0.0 Nucleated Red Blood Cells # 0.0 Sodium Level 134 L Potassium Level 4.7 Chloride Level 90 L Carbon Dioxide Level 28 Anion Gap 21 H Blood Urea Nitrogen 20 Creatinine 1.63 H Glucose Level 178 # Calcium Level 10.0 Magnesium Level 1.8 Total Bilirubin 0.3 Direct Bilirubin 0.00 Indirect Bilirubin 0.3 Aspartate Amino Transf (AST/SGOT) 14 L Alanine Aminotransferase (ALT/SGPT) 29 Alkaline Phosphatase 45 Total Protein 6.1 Albumin 4.2 Globulin 1.90 Albumin/Globulin Ratio 2.21 Medications Medications Current Medications Acetaminophen/ Hydrocodone Bitart ([place] (5/325)) 1 tab Q4H PRN PO PAIN LEVEL 1 -5; Start 03/09/17 at 15:00 Acetaminophen/ Hydrocodone Bitart ([place] (5/325)) 2 tab Q4H PRN PO PAIN LEVEL 6 -10; Start 03/09/17 at 15:00 Prochlorperazine (Compazine) 10 mg Q4H PRN PO NAUSEA AND/OR VOMITING; Start at 15:00 Acetaminophen (Tylenol Tab) 650 mg Q4H PRN PO TEMP GREATER THAN 101F OR GUTIERREZ; Start 03/09/17 at 15:00 Naloxone HCl (Narcan) 0.2 mg Q2M PRN IV RR 8 BREATHS/MIN OR LESS; Start at 15:00 Alprazolam (Xanax) 1 mg TID PO Last administered on 03/10/17t 21:03; Admin Dose 1 MG; Start 03/09/17 at 21:00 Bupropion HCl (Wellbutrin Xl) 300 mg DAILY PO Last administered on 03/10/17 09 :08; Admin Dose 300 MG; Start 03/10/17 at 09:00 Cyclobenzaprine HCl (Flexeril) 10 mg TID PO Last administered on 03/10/17 21: 03; Admin Dose 10 MG; Start 03/09/17 at 21:00 Gabapentin (Neurontin) 300 mg AM PO Last administered on 03/10/17 09:07; Admin Dose 300 MG; Start 03/10/17 at 09:00 Lisinopril (Zestril) 20 mg DAILY PO Last administered on 03/10/17 09:07; Admin Dose 20 MG; Start 03/10/17 at 09:00 Trazodone HCl (Desyrel) 50 mg QHS PO Last administered on 03/10/17 21:03; Admin Dose 50 MG; Start 03/09/17 at 21:00 Valacyclovir HCl (Valtrex) 1,000 mg DAILY PO Last administered on 03/10/17 09: 08; Admin Dose 1,000 MG; Start 03/10/17 at 09:00 Atorvastatin Calcium (Lipitor) 20 mg DAILY@21 PO Last administered on 21:04; Admin Dose 20 MG; Start 03/09/17 at 21:00 Gabapentin (Neurontin) 600 mg QHS PRN PO BACK PAIN; Start 03/09/17 at 17:00 Diagnostic Test (Pha) (Accu-Chek) 1 ea 01 XX Last administered on 03/11/17 00: 57; Admin Dose 1 EA; Start 03/11/17 at 01:00 Lidocaine (Lidocaine 5% Oint) 1 applic Q4H TOP Last administered on 03/11/17 01 :09; Admin Dose 1 APPLIC; Start 03/10/17 at 13:00 Salmeterol Xinafoate/ Fluticasone (Advair 250/50 Diskus) 1 inh BID INH Last administered on 03/10/17 21:04; Admin Dose 1 INH; Start 03/10/17 at 21:00 Famotidine (Pepcid) 20 mg Q12 PRN PO HEARTBURN Last administered on 03/10/17 21:03; Admin Dose 20 MG; Start 03/10/17 at 21:00 Miscellaneous Information 1 ea NOTE XX ; Start 03/10/17 at 21:00 Glucose (Glutose) 15 gm Q15M PRN PO DECREASED GLUCOSE; Start 03/10/17 at 21:00 Glucose (Glutose) 22.5 gm Q15M PRN PO DECREASED GLUCOSE; Start 03/10/17 at 21: 00 Dextrose (D50w Syringe) 25 ml Q15M PRN IV DECREASED GLUCOSE; Start 03/10/17 at 21:00 Dextrose (D50w Syringe) 50 ml Q15M PRN IV DECREASED GLUCOSE; Start 03/10/17 at 21:00 Glucagon (Glucagen) 1 mg Q15M PRN IM DECREASED GLUCOSE; Start 03/10/17 at 21:00 Glucose (Glutose) 15 gm Q15M PRN BUCCAL DECREASED GLUCOSE; Start 03/10/17 at 21 :00 Calcium Carbonate (Ca Carbonate (Ped)) 300 mg ONCE PRN PO GASTROINTESTINAL UPSET Last administered on 03/11/17 02:19; Admin Dose 300 MG; Start 03/11/17 at 01:30 Simethicone 80 mg 80 mg Q6H PRN PO DISTENSION/GAS/BLOATING Last administered on 03/11/17 03:48; Admin Dose 80 MG; Start 03/11/17 at 03:00 Sodium Chloride (NS) 1,000 ml @ 100 mls/hr Q10H IV Last administered on 07:00; Admin Dose 100 MLS/HR; Start 03/11/17 at 07:00 Ondansetron HCl (Zofran Inj) 4 mg Q4H PRN IV NAUSEA AND/OR VOMITING; Start 03/11 at 10:00 JOSE SINGH MD Mar 11, 2017 10:36
[2017-03-11] MEDS ORDERED: SOD CHLORIDE 0.9% 1,000 ML IV ONE (11:00)
--- NOTE | 2017-03-11 11:50 | CONS ---
Date/Time of Note Date/Time of Note DATE: 03/11/17 TIME: 11:39 Assessment/Plan Assessment/Plan Problems: (1) Acute renal insufficiency Status: Acute Comment: Hydrate aggressively. Recheck levels in the morning. If worsening, nephrology consultation. (2) Drug-induced ileus Status: Acute Comment: Will add reglan 10 mg Around The Clock (ATC). Pt. NPO. Will monitor for improvement. Primary team stopping morphine [employer] but switching to percocet which will still cause paralysis of gut. Will add warm compresses to abdomen to improve symptomatic distension. (3) IV infiltrate Status: Acute Comment: Pt. did not receive IVF or pain meds through the night. Now, today receiving warm compresses to hand for local treatment of site. (4) Diabetes mellitus type 1 Status: Chronic Comment: Hypoglycemic yesterday. Insulin held, pt. overtreated w/ glucose. Pt. now hyperglycemic. Hopefully insulin correction and IVF bolus will help correct glucose to goal range. Qualifiers: Diabetes mellitus complication status: without complication Qualified Code : E10.9 - Type 1 diabetes mellitus without complication (5) Essential hypertension Status: Chronic Comment: BP controlled (6) Status post lumbar laminectomy Status: Acute Comment: Doing fair POD#2. Defer to surgery as to next course of action and d/ c planning but right now, pt. not medically ready for d/c. Consultation Date/Type/Reason Admit Date/Time Mar 09, 2017 at 10:40 Initial Consult Date 03/09/2017 Type of Consultation: Medicine/Endocrinology Reason for Consultation Medical and T1DM management Referring Provider: JOSE SINGH MD 24 HR Interval Summary Constitutional: requiring IVF, No improved Detailed Summary Respiratory: no complaints Cardiovascular: no complaints Gastrointestinal: constipation, flatus, nausea, pain, vomiting, No decreased appetite, No passing stool Genitourinary: no complaints Musculoskeletal: back pain Skin: other (IV infiltrate on hand) Neurologic: confusion (from hypoglycemia and narcotics) Exam/Review of Systems Vital Signs Vitals VS - Last 72 Hours, by Label Date Time Temp Pulse Resp B/P Pulse Ox O2 Delivery O2 Flow Rate FiO2 03/11/17 08:10 97.4 92 20 115/59 94 03/11/17 05:00 18 03/10/17 20:00 97.6 107 16 94/52 98 03/10/17 19:15 97.6 107 16 94/52 98 03/10/17 07:57 98.0 82 19 113/60 99 03/10/17 05:30 18 03/10/17 01:30 18 03/10/17 00:00 97.9 85 18 114/59 98 03/09/17 21:56 18 03/09/17 21:54 98.0 88 18 110/65 97 Nasal Cannula 2.0 03/09/17 21:13 98.0 95 13 114/63 100 Room Air 03/09/17 20:47 94 17 128/69 99 Room Air 03/09/17 19:47 108 21 136/74 98 Room Air 03/09/17 18:54 106 19 124/66 95 Room Air 03/09/17 18:23 15 03/09/17 17:54 102 17 102/64 94 Room Air 03/09/17 16:54 86 10 101/56 90 Room Air 03/09/17 15:54 94 13 117/60 94 Room Air 03/09/17 15:49 92 8 115/65 95 Room Air 03/09/17 15:44 90 14 117/81 92 Room Air 03/09/17 15:39 92 14 111/58 96 Room Air 03/09/17 15:34 88 11 122/66 94 Room Air 03/09/17 15:29 88 8 121/59 93 Room Air 03/09/17 15:24 98.8 03/09/17 15:24 82 6 117/64 96 Room Air 03/09/17 15:19 84 13 127/74 96 Room Air 03/09/17 15:14 86 14 126/78 96 Room Air 03/09/17 15:09 98.7 89 15 123/64 97 Room Air 03/09/17 11:54 98.1 100 16 126/82 99 Room Air Vital Signs Date Time Temp Pulse Resp B/P Pulse Ox O2 Delivery O2 Flow Rate FiO2 03/11/17 08:10 97.4 92 20 115/59 94 03/09/17 21:54 Nasal Cannula 2.0 Intake and Output 03/10/17 03/10/17 03/11/17 15:00 23:00 07:00 Intake Total 240 ml 240 ml Output Total 30 ml 300 ml Balance 210 ml -60 ml Exam Constitutional: alert, obese, oriented Psych: nl mood/affect, no complaints Respiratory: clear to auscultation, normal air movement Cardiovascular: nl pulses, regular rate and rhythm, No edema, No murmurs/extra sounds, No rub Gastrointestinal: bowel sounds, distended, nl liver, spleen, soft, No mass, No non-tender, No rebound or guarding, No tender Musculoskeletal: nl extremities to inspection Extremities: normal pulses, No clubbing, No cyanosis, No edema Neurological: [employer] II-XII intact, nl mental status, nl speech, nl strength Additional Comments Bedside Glucose - 72 Hours Test 03/09/17 11:20 03/09/17 12:23 03/09/17 15:07 03/09/17 18:09 Bedside Glucose 299mg/dL (70-220) H 240mg/dL (70-220) H 182mg/dL (70-220) 164mg/dL (70-220) Test 03/09/17 21:46 03/10/17 02:08 03/10/17 09:27 03/10/17 12:37 Bedside Glucose 202mg/dL (70-220) 163mg/dL (70-220) 142mg/dL (70-220) 112mg/dL (70-220) Test 03/10/17 17:56 03/10/17 18:10 03/10/17 18:32 03/10/17 18:38 Bedside Glucose 48mg/dL (70-220) *L 49mg/dL (70-220) *L 48mg/dL (70-220) *L 51mg/dL (70-220) L Test 03/10/17 20:00 03/10/17 22:43 03/11/17 00:56 03/11/17 09:01 Bedside Glucose 191mg/dL (70-220) 224mg/dL (70-220) H 237mg/dL (70-220) H 227mg/dL (70-220) H Results Result Diagram: 03/11/1742403/11/17424 Results 24 hrs Laboratory Tests Test 03/10/17 12:37 03/10/17 17:56 03/10/17 18:10 03/10/17 18:32 Bedside Glucose 112 48 *L 49 *L 48 *L Test 03/10/17 18:38 03/10/17 18:40 03/10/17 20:00 03/10/17 22:43 Bedside Glucose 51 L 191 224 H Glucose Level 49 #*L Test 03/11/17 00:56 03/11/17 04:25 03/11/17 09:01 Bedside Glucose 237 H 227 H White Blood Count 10.0 Red Blood Count 4.58 L Hemoglobin 14.0 Hematocrit 42.1 Mean Corpuscular Volume 91.9 Mean Corpuscular Hemoglobin 30.6 Mean Corpuscular Hemoglobin Concent 33.3 Red Cell Distribution Width 13.4 Platelet Count 168 # Mean Platelet Volume 11.4 H Neutrophils % 72.4 Lymphocytes % 13.2 L Monocytes % 12.2 H Eosinophils % 1.5 Basophils % 0.3 Nucleated Red Blood Cells % 0.0 Neutrophils # 7.3 Lymphocytes # 1.3 Monocytes # 1.2 H Eosinophils # 0.2 Basophils # 0.0 Nucleated Red Blood Cells # 0.0 Sodium Level 134 L Potassium Level 4.7 Chloride Level 90 L Carbon Dioxide Level 28 Anion Gap 21 H Blood Urea Nitrogen 20 Creatinine 1.63 H Glucose Level 178 # Calcium Level 10.0 Magnesium Level 1.8 Total Bilirubin 0.3 Direct Bilirubin 0.00 Indirect Bilirubin 0.3 Aspartate Amino Transf (AST/SGOT) 14 L Alanine Aminotransferase (ALT/SGPT) 29 Alkaline Phosphatase 45 Total Protein 6.1 Albumin 4.2 Globulin 1.90 Albumin/Globulin Ratio 2.21 Medications Medications Current Medications Acetaminophen/ Hydrocodone Bitart ([place] (5/325)) 1 tab Q4H PRN PO PAIN LEVEL 1 -5; Start 03/09/17 at 15:00 Acetaminophen/ Hydrocodone Bitart ([place] (5/325)) 2 tab Q4H PRN PO PAIN LEVEL 6 -10; Start 03/09/17 at 15:00 Prochlorperazine (Compazine) 10 mg Q4H PRN PO NAUSEA AND/OR VOMITING; Start at 15:00 Acetaminophen (Tylenol Tab) 650 mg Q4H PRN PO TEMP GREATER THAN 101F OR GUTIERREZ; Start 03/09/17 at 15:00 Naloxone HCl (Narcan) 0.2 mg Q2M PRN IV RR 8 BREATHS/MIN OR LESS; Start at 15:00 Alprazolam (Xanax) 1 mg TID PO Last administered on 03/10/17 21:03; Admin Dose 1 MG; Start 03/09/17 at 21:00 Bupropion HCl (Wellbutrin Xl) 300 mg DAILY PO Last administered on 03/10/17 09 :08; Admin Dose 300 MG; Start 03/10/17 at 09:00 Cyclobenzaprine HCl (Flexeril) 10 mg TID PO Last administered on 03/10/17 21: 03; Admin Dose 10 MG; Start 03/09/17 at 21:00 Gabapentin (Neurontin) 300 mg AM PO Last administered on 03/10/17 09:07; Admin Dose 300 MG; Start 03/10/17 at 09:00 Lisinopril (Zestril) 20 mg DAILY PO Last administered on 03/10/17 09:07; Admin Dose 20 MG; Start 03/10/17 at 09:00 Trazodone HCl (Desyrel) 50 mg QHS PO Last administered on 03/10/17 21:03; Admin Dose 50 MG; Start 03/09/17 at 21:00 Valacyclovir HCl (Valtrex) 1,000 mg DAILY PO Last administered on 03/10/17 09: 08; Admin Dose 1,000 MG; Start 03/10/17 at 09:00 Atorvastatin Calcium (Lipitor) 20 mg DAILY@21 PO Last administered on 21:04; Admin Dose 20 MG; Start 03/09/17 at 21:00 Gabapentin (Neurontin) 600 mg QHS PRN PO BACK PAIN; Start 03/09/17 at 17:00 Diagnostic Test (Pha) (Accu-Chek) 1 ea 01 XX Last administered on 03/11/17 00: 57; Admin Dose 1 EA; Start 03/11/17 at 01:00 Lidocaine (Lidocaine 5% Oint) 1 applic Q4H TOP Last administered on 03/11/17 01 :09; Admin Dose 1 APPLIC; Start 03/10/17 at 13:00 Salmeterol Xinafoate/ Fluticasone (Advair 250/50 Diskus) 1 inh BID INH Last administered on 03/10/17 21:04; Admin Dose 1 INH; Start 03/10/17 at 21:00 Famotidine (Pepcid) 20 mg Q12 PRN PO HEARTBURN Last administered on 03/10/17 21:03; Admin Dose 20 MG; Start 03/10/17 at 21:00 Miscellaneous Information 1 ea NOTE XX ; Start 03/10/17 at 21:00 Glucose (Glutose) 15 gm Q15M PRN PO DECREASED GLUCOSE; Start 03/10/17 at 21:00 Glucose (Glutose) 22.5 gm Q15M PRN PO DECREASED GLUCOSE; Start 03/10/17 at 21: 00 Dextrose (D50w Syringe) 25 ml Q15M PRN IV DECREASED GLUCOSE; Start 03/10/17 at 21:00 Dextrose (D50w Syringe) 50 ml Q15M PRN IV DECREASED GLUCOSE; Start 03/10/17 at 21:00 Glucagon (Glucagen) 1 mg Q15M PRN IM DECREASED GLUCOSE; Start 03/10/17 at 21:00 Glucose (Glutose) 15 gm Q15M PRN BUCCAL DECREASED GLUCOSE; Start 03/10/17 at 21 :00 Calcium Carbonate (Ca Carbonate (Ped)) 300 mg ONCE PRN PO GASTROINTESTINAL UPSET Last administered on 03/11/17 02:19; Admin Dose 300 MG; Start 03/11/17 at 01:30 Simethicone 80 mg 80 mg Q6H PRN PO DISTENSION/GAS/BLOATING Last administered on 03/11/17 03:48; Admin Dose 80 MG; Start 03/11/17 at 03:00 Sodium Chloride (NS) 1,000 ml @ 100 mls/hr Q10H IV Last administered on 07:00; Admin Dose 100 MLS/HR; Start 03/11/17 at 07:00 Ondansetron HCl (Zofran Inj) 4 mg Q4H PRN IV NAUSEA AND/OR VOMITING; Start 03/11 at 10:00 Morphine Sulfate 4 mg 4 mg Q4H PRN IV severe break through; Start 03/11/17 at 10 :30 Sodium Chloride (NS) 1,000 ml @ 1,000 mls/hr Q1H ONCE IV ; Start 03/11/17 at 11: 00; Stop 03/11/17 at 11:59 GERALDINE HARPER MD Mar 11, 2017 11:49
[2017-03-11] MEDS: METOCLOPRAMIDE 10 MG INJ IV SCH ×2 (12:00→17:18)
[2017-03-11] MEDS: CYCLOBENZAPRINE 10 MG TAB PO SCH ×3 (13:00→20:52)
[2017-03-11] MEDS: ACCU-CHEK XX SCH ×3 (13:30→21:00)
[2017-03-11] MEDS: SALMETEROL/FLUTICASONE 250/50 INHA INH SCH ×2 (13:39→22:30)
[2017-03-11] MEDS: OXYCODONE/ACETAMINOPHEN (5/325) TAB PO PRN ×2 (14:38→20:53)
[2017-03-11] MEDS ORDERED: NITROGLYCERIN (SL) 0.4 MG TAB SL ONE (18:00)
[2017-03-11] MEDS ORDERED: NITROGLYCERIN (SL) 0.4 MG TAB SL PRN (18:00)
[2017-03-11 19:10] VITALS: BP 148/79; RESP 18
[2017-03-11] MEDS: traZODone 50 MG TAB PO SCH (20:52)
[2017-03-11] MEDS: ATORVASTATIN 20 MG TAB PO SCH (20:52)
[2017-03-12] MEDS: METOCLOPRAMIDE 10 MG INJ IV SCH ×4 (00:54→17:54)
[2017-03-12] MEDS: OXYCODONE/ACETAMINOPHEN (5/325) TAB PO PRN ×5 (00:55→21:40)
[2017-03-12] MEDS: LIDOCAINE 5% 35 GM OINT TOP SCH ×6 (01:00→21:00)
[2017-03-12] MEDS: ACCU-CHEK XX SCH ×6 (01:00→21:00)
[2017-03-12] MEDS: SOD CHLORIDE 0.9% 1,000 ML IV SCH (01:04)
--- NOTE | 2017-03-12 01:34 | RADRPT ---
PROCEDURE: XR Chest. CLINICAL INDICATION: Shortness of breath. TECHNIQUE: Single frontal chest x-ray. COMPARISON: None. FINDINGS: The cardiomediastinal silhouette is unremarkable. There is hypoventilation with mild diffuse inters titial prominence.. No focal infiltrate is seen. There is no pleural effusion. There is no pneumot horax. There is probable old left posterior lateral sixth rib fracture.. IMPRESSION: Hypoventilation with mild diffuse interstitial prominence, likely representing atelectasis. Full in spiratory PA and lateral views is recommended when clinically appropriate. Probable old left sixt h posterior lateral rib fracture. RPTAT: [facility]K .Mino Mendieta MD, MD Date Time Electronically viewed and signed by .Mino Mendieta MD, on 03/12/2017 01:33 .K/
[2017-03-12 06:06] LABS: ALBUMIN 3.9 g/dl (3.3-4.9); CALCIUM 9.2 mg/dl (8.4-10.2); CREATININE 0.86 mg/dl (0.61-1.24); MAGNESIUM 1.7 mg/dl (1.7-2.5); PHOSPHORUS 2.9 mg/dl (2.5-4.9); POTASSIUM 4.1 mmol/L (3.5-5.1)
[2017-03-12] MEDS: LEVOTHYROXINE 175 MCG TAB PO SCH (07:02)
[2017-03-12] MEDS: PT'S OWN INSULIN PUMP SC SCH ×4 (07:20→21:00)
[2017-03-12 07:55] VITALS: BP 120/58; RESP 18
[2017-03-12] MEDS: SALMETEROL/FLUTICASONE 250/50 INHA INH SCH ×3 (09:00→21:40)
[2017-03-12] MEDS: ALPRAZOLAM 1 MG TAB PO SCH ×3 (09:00→21:40)
[2017-03-12] MEDS: GABAPENTIN 300 MG CAP PO SCH (09:37)
[2017-03-12] MEDS: VALACYCLOVIR 500 MG TAB PO SCH (09:37)
[2017-03-12] MEDS: CYCLOBENZAPRINE 10 MG TAB PO SCH ×3 (09:37→21:40)
[2017-03-12] MEDS: BUPROPION (XL) 150 MG TAB PO SCH (09:37)
[2017-03-12] MEDS: LISINOPRIL 20 MG TAB PO SCH (09:38)
--- NOTE | 2017-03-12 09:48 | PDOCDIS ---
Discharge Instructions CONDITION Patient Condition: Good HOME CARE INSTRUCTIONS: Diet Instructions: RegularSpecial Diet: CCD ACTIVITY: Activity Restrictions: Avoid heavy lifting Bathing Restrictions: Shower FOLLOW UP/APPOINTMENTS Follow-up Plan Follow-up with Dr. Singh in 2 weeks JOSE SINGH MD Mar 12, 2017 09:48
--- NOTE | 2017-03-12 09:48 | CONS ---
Date/Time of Note Date/Time of Note DATE: 03/12/17 TIME: 09:37 Consultation Date/Type/Reason Admit Date/Time Mar 09, 2017 at 10:40 Type of Consultation: Orthopaedic Spine Referring Provider: JOSE SINGH MD 24 HR Interval Summary Free Text/Dictation Ortho Spine Progress Note S: 36 yo M POD#3 s/p dural repair. Patient had some chest pain yesterday. Troponins were ordered and were negative. Chest X-Ray showed some atelectasis. He currently denies and SOB or chest pain. He is now using his incentive spirometer more frequently. He reports improvement in his nausea and has been passing gas. He is tolerating a clear liquid diet. His pain is being controlled with PO percocet. He denies any headaches. He was given an IV 1 L bolus of fluids yesterdat for elevated Creatinine of 1.64 which has improved to 0.8. He has no complaints. He has been on bed rest. O: AFVSS, Hemovac: 10mL in past 12 hours Gen: AAOx3, NAD Abdomen: mild-moderate distension but soft Spine exam: incision C/D/I, 5/5 TA/EHL/GS, +SILT L3-S1 A/P: 36 yo M POD#3 s/p dural repair 1. discontinue bed rest, start PT today with spine precautions 2. drain has been discontinued 3. advance diet 1800 ADA diet later today if continues to pass gas and tolerates clear diet 4. DC aadm catheter 5. D/C today or tomorrow once tolerating regular diet and after able to urinate if ok with medicine team Exam/Review of Systems Vital Signs Vitals Vital Signs Date Time Temp Pulse Resp B/P Pulse Ox O2 Delivery O2 Flow Rate FiO2 03/12/17 07:55 97.8 90 18 120/58 92 03/09/17 21:54 Nasal Cannula 2.0 Intake and Output 03/11/17 03/11/17 03/12/17 15:00 23:00 07:00 Intake Total 700 ml 2550 ml 1500 ml Output Total 1700 ml 1700 ml Balance 700 ml 850 ml -200 ml Results Result Diagram: 03/11/17 0425 03/12/17 0440 Results 24 hrs Laboratory Tests Test 03/11/17 13:37 03/11/17 17:30 03/11/17 17:54 03/11/17 20:55 Bedside Glucose 144 87 123 Troponin I < 0.012 Test 03/11/17 22:29 03/12/17 00:58 03/12/17 04:40 03/12/17 05:16 Troponin I < 0.012 Bedside Glucose 122 119 Sodium Level 138 Potassium Level 4.1 Chloride Level 96 L Carbon Dioxide Level 29 Anion Gap 17 H Blood Urea Nitrogen 9 # Creatinine 0.86 Glucose Level 109 # Calcium Level 9.2 Phosphorus Level 2.9 Magnesium Level 1.7 Albumin 3.9 Test 03/12/17 08:05 Bedside Glucose 128 Medications Medications Current Medications Acetaminophen/ Hydrocodone Bitart ([place] (5/325)) 1 tab Q4H PRN PO PAIN LEVEL 1 -5; Start 03/09/17 at 15:00 Acetaminophen/ Hydrocodone Bitart ([place] (5/325)) 2 tab Q4H PRN PO PAIN LEVEL 6 -10; Start 03/09/17 at 15:00 Prochlorperazine (Compazine) 10 mg Q4H PRN PO NAUSEA AND/OR VOMITING; Start at 15:00 Acetaminophen (Tylenol Tab) 650 mg Q4H PRN PO TEMP GREATER THAN 101F OR GUTIERREZ; Start 03/09/17 at 15:00 Naloxone HCl (Narcan) 0.2 mg Q2M PRN IV RR 8 BREATHS/MIN OR LESS; Start at 15:00 Alprazolam (Xanax) 1 mg TID PO Last administered on 03/11/17 20:53; Admin Dose 1 MG; Start 03/09/17 at 21:00 Bupropion HCl (Wellbutrin Xl) 300 mg DAILY PO Last administered on 03/10/17 09 :08; Admin Dose 300 MG; Start 03/10/17 at 09:00 Cyclobenzaprine HCl (Flexeril) 10 mg TID PO Last administered on 03/11/17 20:52 ; Admin Dose 10 MG; Start 03/09/17 at 21:00 Gabapentin (Neurontin) 300 mg AM PO Last administered on 03/10/17 09:07; Admin Dose 300 MG; Start 03/10/17 at 09:00 Lisinopril (Zestril) 20 mg DAILY PO Last administered on 03/10/17 09:07; Admin Dose 20 MG; Start 03/10/17 at 09:00 Trazodone HCl (Desyrel) 50 mg QHS PO Last administered on 03/11/17 20:52; Admin Dose 50 MG; Start 03/09/17 at 21:00 Valacyclovir HCl (Valtrex) 1,000 mg DAILY PO Last administered on 03/10/17 09: 08; Admin Dose 1,000 MG; Start 03/10/17 at 09:00 Atorvastatin Calcium (Lipitor) 20 mg DAILY@21 PO Last administered on 03/11/17 20:52; Admin Dose 20 MG; Start 03/09/17 at 21:00 Gabapentin (Neurontin) 600 mg QHS PRN PO BACK PAIN; Start 03/09/17 at 17:00 Lidocaine (Lidocaine 5% Oint) 1 applic Q4H TOP Last administered on 03/11/17 01 :09; Admin Dose 1 APPLIC; Start 03/10/17 at 13:00 Salmeterol Xinafoate/ Fluticasone (Advair 250/50 Diskus) 1 inh BID INH Last administered on 03/11/17 22:30; Admin Dose 1 INH; Start 03/10/17 at 21:00 Famotidine (Pepcid) 20 mg Q12 PRN PO HEARTBURN Last administered on 03/10/17 21:03; Admin Dose 20 MG; Start 03/10/17 at 21:00 Miscellaneous Information 1 ea NOTE XX ; Start 03/10/17 at 21:00 Glucose (Glutose) 15 gm Q15M PRN PO DECREASED GLUCOSE; Start 03/10/17 at 21:00 Glucose (Glutose) 22.5 gm Q15M PRN PO DECREASED GLUCOSE; Start 03/10/17 at 21: 00 Dextrose (D50w Syringe) 25 ml Q15M PRN IV DECREASED GLUCOSE; Start 03/10/17 at 21:00 Dextrose (D50w Syringe) 50 ml Q15M PRN IV DECREASED GLUCOSE; Start 03/10/17 at 21:00 Glucagon (Glucagen) 1 mg Q15M PRN IM DECREASED GLUCOSE; Start 03/10/17 at 21:00 Glucose (Glutose) 15 gm Q15M PRN BUCCAL DECREASED GLUCOSE; Start 03/10/17 at 21 :00 Calcium Carbonate (Ca Carbonate (Ped)) 300 mg ONCE PRN PO GASTROINTESTINAL UPSET Last administered on 03/11/17 02:19; Admin Dose 300 MG; Start 03/11/17 at 01:30 Simethicone 80 mg 80 mg Q6H PRN PO DISTENSION/GAS/BLOATING Last administered on 03/11/17 17:16; Admin Dose 80 MG; Start 03/11/17 at 03:00 Sodium Chloride (NS) 1,000 ml @ 100 mls/hr Q10H IV Last administered on 01:04; Admin Dose 100 MLS/HR; Start 03/11/17 at 07:00 Ondansetron HCl (Zofran Inj) 4 mg Q4H PRN IV NAUSEA AND/OR VOMITING; Start 03/11 at 10:00 Morphine Sulfate (morphine) 4 mg Q4H PRN IV severe break through Last administered on 03/11/17 17:41; Admin Dose 4 MG; Start 03/11/17 at 10:30 Diagnostic Test (Pha) (Accu-Chek) 1 ea Q4 XX Last administered on 03/11/17 13: 30; Admin Dose 1 EA; Start 03/11/17 at 13:00 Metoclopramide HCl (Reglan) 10 mg Q6 IV Last administered on 03/12/17 05:09; Admin Dose 10 MG; Start 03/11/17 at 12:00 Oxycodone/ Acetaminophen (Percocet (5/ 325)) 1 tab Q4H PRN PO PAIN Last administered on 03/12/17 05:10; Admin Dose 1 TAB; Start 03/11/17 at 14:30 Oxycodone/ Acetaminophen (Percocet (5/ 325)) 2 tab Q4H PRN PO PAIN Last administered on 03/12/17 00:55; Admin Dose 2 TAB; Start 03/11/17 at 14:30 Nitroglycerin (Nitroglycerin (Sl Tab) 0.4 Mg) 1 tab Q5M PRN SL ANGINA; Start at 18:00 JOSE SINGH MD Mar 12, 2017 09:48
--- NOTE | 2017-03-12 11:39 | CONS ---
Date/Time of Note Date/Time of Note DATE: 03/12/17 TIME: 11:32 Assessment/Plan Assessment/Plan Problems: (1) Chest pain Status: Resolved Comment: Likely due to combination of gas from ileus and anxiety. Troponins, EKG negative. Symptoms resolved. (2) Dyspnea Status: Acute Comment: EKG did show pulmonary pattern. CXR showed atelectasis. Pt. now on IS. Doing better. (3) IV infiltrate Status: Acute Comment: Resolving but hand still a little swollen. (4) Drug-induced ileus Status: Resolved Comment: Having flatus. Feeling better. Advance diet slowly. Monitor closely and if does not show evidence of complete resolution will maintain in house until tomorrow. (5) Acute renal insufficiency Status: Resolved Comment: Normalized w/ hydration (6) Diabetes mellitus type 1 Status: Chronic Comment: Good glycemic control Qualifiers: Diabetes mellitus complication status: without complication Qualified Code : E10.9 - Type 1 diabetes mellitus without complication (7) Essential hypertension Status: Chronic Comment: Controlled (8) Status post lumbar laminectomy Status: Acute Comment: Improved POD#3. Primary team considering d/c. Pt. ambulating and beginning diet. Will monitor progress today. D/c only if doing extremely well tonight. O/w recheck tomorrow. Consultation Date/Type/Reason Admit Date/Time Mar 09, 2017 at 10:40 Initial Consult Date 03/09/2017 Type of Consultation: Medicine/Endo Reason for Consultation Medical/T1DM management Referring Provider: JOSE SINGH MD 24 HR Interval Summary Constitutional: improved (profoundly), no complaints Detailed Summary Respiratory: shortness of breath (last night but today resolved) Cardiovascular: chest pain (last night but today resolved) Gastrointestinal: constipation (no BM but passing gas), flatus, pain (resolved) , No decreased appetite (able to take po at this time), No nausea (resolved) Genitourinary: no complaints Musculoskeletal: no complaints Neurologic: no complaints Psychological: anxiety (last night) Exam/Review of Systems Vital Signs Vitals VS - Last 72 Hours, by Label Date Time Temp Pulse Resp B/P Pulse Ox O2 Delivery O2 Flow Rate FiO2 03/12/17 07:55 97.8 90 18 120/58 92 03/11/17 19:10 98.1 105 18 148/79 95 03/11/17 08:10 97.4 92 20 115/59 94 03/11/17 05:00 18 03/10/17 20:00 97.6 107 16 94/52 98 03/10/17 19:15 97.6 107 16 94/52 98 03/10/17 07:57 98.0 82 19 113/60 99 03/10/17 05:30 18 03/10/17 01:30 18 03/10/17 00:00 97.9 85 18 114/59 98 03/09/17 21:56 18 03/09/17 21:54 98.0 88 18 110/65 97 Nasal Cannula 2.0 03/09/17 21:13 98.0 95 13 114/63 100 Room Air 03/09/17 20:47 94 17 128/69 99 Room Air 03/09/17 19:47 108 21 136/74 98 Room Air 03/09/17 18:54 106 19 124/66 95 Room Air 03/09/17 18:23 15 03/09/17 17:54 102 17 102/64 94 Room Air 03/09/17 16:54 86 10 101/56 90 Room Air 03/09/17 15:54 94 13 117/60 94 Room Air 03/09/17 15:49 92 8 115/65 95 Room Air 03/09/17 15:44 90 14 117/81 92 Room Air 03/09/17 15:39 92 14 111/58 96 Room Air 03/09/17 15:34 88 11 122/66 94 Room Air 03/09/17 15:29 88 8 121/59 93 Room Air 03/09/17 15:24 98.8 03/09/17 15:24 82 6 117/64 96 Room Air 03/09/17 15:19 84 13 127/74 96 Room Air 03/09/17 15:14 86 14 126/78 96 Room Air 03/09/17 15:09 98.7 89 15 123/64 97 Room Air 03/09/17 11:54 98.1 100 16 126/82 99 Room Air Vital Signs Date Time Temp Pulse Resp B/P Pulse Ox O2 Delivery O2 Flow Rate FiO2 03/12/17 07:55 97.8 90 18 120/58 92 03/09/17 21:54 Nasal Cannula 2.0 Intake and Output 03/11/17 03/11/17 03/12/17 14:59 22:59 06:59 Intake Total 700 ml 2550 ml 1500 ml Output Total 50 ml 1700 ml 1700 ml Balance 650 ml 850 ml -200 ml Exam Constitutional: alert, obese, oriented Psych: nl mood/affect, no complaints Respiratory: clear to auscultation, normal air movement Cardiovascular: nl pulses, regular rate and rhythm, No edema, No murmurs/extra sounds, No rub Gastrointestinal: bowel sounds, nl liver, spleen, non-tender, soft, No mass, No rebound or guarding Musculoskeletal: nl extremities to inspection Extremities: normal pulses, No clubbing, No cyanosis, No edema Neurological: ICT DEVELOPER II-XII intact, nl mental status, nl speech, nl strength Additional Comments Bedside Glucose - 72 Hours Test 03/09/17 12:23 03/09/17 15:07 03/09/17 18:09 03/09/17 21:46 Bedside Glucose 240mg/dL (70-220) H 182mg/dL (70-220) 164mg/dL (70-220) 202mg/dL (70-220) Test 03/10/17 02:08 03/10/17 09:27 03/10/17 12:37 03/10/17 17:56 Bedside Glucose 163mg/dL (70-220) 142mg/dL (70-220) 112mg/dL (70-220) 48mg/dL (70-220) *L Test 03/10/17 18:10 03/10/17 18:32 03/10/17 18:38 03/10/17 20:00 Bedside Glucose 49mg/dL (70-220) *L 48mg/dL (70-220) *L 51mg/dL (70-220) L 191mg/dL (70-220) Test 03/10/17 22:43 03/11/17 00:56 03/11/17 09:01 03/11/17 13:37 Bedside Glucose 224mg/dL (70-220) H 237mg/dL (70-220) H 227mg/dL (70-220) H 144mg/dL (70-220) Test 03/11/17 17:30 03/11/17 20:55 03/12/17 00:58 03/12/17 05:16 Bedside Glucose 87mg/dL (70-220) 123mg/dL (70-220) 122mg/dL (70-220) 119mg/dL (70-220) Test 03/12/17 08:05 Bedside Glucose 128mg/dL (70-220) Results Result Diagram: 03/11/17 0425 03/12/17 0440 Results 24 hrs Laboratory Tests Test 03/11/17 13:37 03/11/17 17:30 03/11/17 17:54 03/11/17 20:55 Bedside Glucose 144 87 123 Troponin I < 0.012 Test 03/11/17 22:29 03/12/17 00:58 03/12/17 04:40 03/12/17 05:16 Troponin I < 0.012 Bedside Glucose 122 119 Sodium Level 138 Potassium Level 4.1 Chloride Level 96 L Carbon Dioxide Level 29 Anion Gap 17 H Blood Urea Nitrogen 9 # Creatinine 0.86 Glucose Level 109 # Calcium Level 9.2 Phosphorus Level 2.9 Magnesium Level 1.7 Albumin 3.9 Test 03/12/17 08:05 Bedside Glucose 128 Medications Medications Current Medications Acetaminophen/ Hydrocodone Bitart ([place] (5/325)) 1 tab Q4H PRN PO PAIN LEVEL 1 -5; Start 03/09/17 at 15:00 Acetaminophen/ Hydrocodone Bitart ([place] (5/325)) 2 tab Q4H PRN PO PAIN LEVEL 6 -10; Start 03/09/17 at 15:00 Prochlorperazine (Compazine) 10 mg Q4H PRN PO NAUSEA AND/OR VOMITING; Start at 15:00 Acetaminophen (Tylenol Tab) 650 mg Q4H PRN PO TEMP GREATER THAN 101F OR GUTIERREZ; Start 03/09/17 at 15:00 Naloxone HCl (Narcan) 0.2 mg Q2M PRN IV RR 8 BREATHS/MIN OR LESS; Start at 15:00 Alprazolam (Xanax) 1 mg TID PO Last administered on 03/11/17 20:53; Admin Dose 1 MG; Start 03/09/17 at 21:00 Bupropion HCl (Wellbutrin Xl) 300 mg DAILY PO Last administered on 03/12/17 09: 37; Admin Dose 300 MG; Start 03/10/17 at 09:00 Cyclobenzaprine HCl (Flexeril) 10 mg TID PO Last administered on 03/12/17 09:37 ; Admin Dose 10 MG; Start 03/09/17 at 21:00 Gabapentin (Neurontin) 300 mg AM PO Last administered on 03/12/17 09:37; Admin Dose 300 MG; Start 03/10/17 at 09:00 Lisinopril (Zestril) 20 mg DAILY PO Last administered on 03/12/17 09:38; Admin Dose 20 MG; Start 03/10/17 at 09:00 Trazodone HCl (Desyrel) 50 mg QHS PO Last administered on 03/11/17 20:52; Admin Dose 50 MG; Start 03/09/17 at 21:00 Valacyclovir HCl (Valtrex) 1,000 mg DAILY PO Last administered on 03/12/17 09: 37; Admin Dose 1,000 MG; Start 03/10/17 at 09:00 Atorvastatin Calcium (Lipitor) 20 mg DAILY@21 PO Last administered on 03/11/17 20:52; Admin Dose 20 MG; Start 03/09/17 at 21:00 Gabapentin (Neurontin) 600 mg QHS PRN PO BACK PAIN; Start 03/09/17 at 17:00 Lidocaine (Lidocaine 5% Oint) 1 applic Q4H TOP Last administered on 03/11/17 01 :09; Admin Dose 1 APPLIC; Start 03/10/17 at 13:00 Salmeterol Xinafoate/ Fluticasone (Advair 250/50 Diskus) 1 inh BID INH Last administered on 03/11/17 22:30; Admin Dose 1 INH; Start 03/10/17 at 21:00 Famotidine (Pepcid) 20 mg Q12 PRN PO HEARTBURN Last administered on 03/10/17 21:03; Admin Dose 20 MG; Start 03/10/17 at 21:00 Miscellaneous Information 1 ea NOTE XX ; Start 03/10/17 at 21:00 Glucose (Glutose) 15 gm Q15M PRN PO DECREASED GLUCOSE; Start 03/10/17 at 21:00 Glucose (Glutose) 22.5 gm Q15M PRN PO DECREASED GLUCOSE; Start 03/10/17 at 21: 00 Dextrose (D50w Syringe) 25 ml Q15M PRN IV DECREASED GLUCOSE; Start 03/10/17 at 21:00 Dextrose (D50w Syringe) 50 ml Q15M PRN IV DECREASED GLUCOSE; Start 03/10/17 at 21:00 Glucagon (Glucagen) 1 mg Q15M PRN IM DECREASED GLUCOSE; Start 03/10/17 at 21:00 Glucose (Glutose) 15 gm Q15M PRN BUCCAL DECREASED GLUCOSE; Start 03/10/17 at 21 :00 Calcium Carbonate (Ca Carbonate (Ped)) 300 mg ONCE PRN PO GASTROINTESTINAL UPSET Last administered on 03/11/17 02:19; Admin Dose 300 MG; Start 03/11/17 at 01:30 Simethicone 80 mg 80 mg Q6H PRN PO DISTENSION/GAS/BLOATING Last administered on 03/11/17 17:16; Admin Dose 80 MG; Start 03/11/17 at 03:00 Sodium Chloride (NS) 1,000 ml @ 100 mls/hr Q10H IV Last administered on 01:04; Admin Dose 100 MLS/HR; Start 03/11/17 at 07:00 Ondansetron HCl (Zofran Inj) 4 mg Q4H PRN IV NAUSEA AND/OR VOMITING; Start 03/11 at 10:00 Morphine Sulfate (morphine) 4 mg Q4H PRN IV severe break through Last administered on 03/11/17 17:41; Admin Dose 4 MG; Start 03/11/17 at 10:30 Diagnostic Test (Pha) (Accu-Chek) 1 ea Q4 XX Last administered on 03/11/17 13: 30; Admin Dose 1 EA; Start 03/11/17 at 13:00 Metoclopramide HCl (Reglan) 10 mg Q6 IV Last administered on 03/12/17 05:09; Admin Dose 10 MG; Start 03/11/17 at 12:00 Oxycodone/ Acetaminophen (Percocet (5/ 325)) 1 tab Q4H PRN PO PAIN Last administered on 03/12/17 05:10; Admin Dose 1 TAB; Start 03/11/17 at 14:30 Oxycodone/ Acetaminophen (Percocet (5/ 325)) 2 tab Q4H PRN PO PAIN Last administered on 03/12/17 00:55; Admin Dose 2 TAB; Start 03/11/17 at 14:30 Nitroglycerin (Nitroglycerin (Sl Tab) 0.4 Mg) 1 tab Q5M PRN SL ANGINA; Start at 18:00 GERALDINE HARPER MD Mar 12, 2017 11:39
[2017-03-12 19:50] VITALS: BP 118/63; RESP 18
[2017-03-12] MEDS: NACL 0.9% 3 ML SYG IV SCH (20:30)
[2017-03-12] MEDS: ATORVASTATIN 20 MG TAB PO SCH (21:40)
[2017-03-12] MEDS: traZODone 50 MG TAB PO SCH (21:40)
[2017-03-13] MEDS: LIDOCAINE 5% 35 GM OINT TOP SCH ×3 (00:05→08:45)
[2017-03-13] MEDS: ACCU-CHEK XX SCH ×3 (01:00→10:00)
[2017-03-13] MEDS: OXYCODONE/ACETAMINOPHEN (5/325) TAB PO PRN ×2 (01:52→08:43)
[2017-03-13] MEDS: NACL 0.9% 3 ML SYG IV SCH (04:30)
[2017-03-13] MEDS: METOCLOPRAMIDE 10 MG INJ IV SCH ×2 (05:31)
[2017-03-13] MEDS: LEVOTHYROXINE 175 MCG TAB PO SCH (05:52)
[2017-03-13 06:37] LABS: CALCIUM 9.9 mg/dl (8.4-10.2); CREATININE 0.85 mg/dl (0.61-1.24); POTASSIUM 4.2 mmol/L (3.5-5.1)
[2017-03-13 07:00] VITALS: BP 119/57; RESP 18
[2017-03-13] MEDS: SALMETEROL/FLUTICASONE 250/50 INHA INH SCH (08:33)
[2017-03-13] MEDS: PT'S OWN INSULIN PUMP SC SCH (08:34)
[2017-03-13] MEDS: CYCLOBENZAPRINE 10 MG TAB PO SCH (08:42)
[2017-03-13] MEDS: GABAPENTIN 300 MG CAP PO SCH (08:42)
[2017-03-13] MEDS: VALACYCLOVIR 500 MG TAB PO SCH (08:43)
[2017-03-13] MEDS: BUPROPION (XL) 150 MG TAB PO SCH (08:43)
[2017-03-13] MEDS: LISINOPRIL 20 MG TAB PO SCH (08:44)
[2017-03-13] MEDS: ALPRAZOLAM 1 MG TAB PO SCH (08:45)
--- NOTE | 2017-03-13 09:40 | DS ---
Date/Time of Note Date/Time of Note DATE: 03/13/17 TIME: 09:38 Discharge Summary Admission/Discharge Info Admit Date/Time Mar 09, 2017 at 10:40 Discharge Date/Time 03/13/2017 Discharge Diagnosis Dural leak post prior spinal surgery; status post acute durotomy; diabetes mellitus type 1; hypothyroidism; hyperlipidemia; anxiety disorder Patient Condition: Fair Consults Internal medicine and spinal surgery Procedures DATE OF OPERATION: 03/09/2017 PREOPERATIVE DIAGNOSES: persistent CSF leak with formation of symptomatic pseudomeningocele after prior L5-S1 decompression POSTOPERATIVE DIAGNOSES: persistent CSF leak with formation of symptomatic pseudomeningocele after prior L5-S1 decompression OPERATION PERFORMED: 1. Repair of Durotomy Hx of Present Illness 36-year-old male type I diabetic. He had recently undergone surgery at this facility was discharged February 01, 2017. He had been recuperating and had lifted a heavy object with immediate back pain. It appears he may have developed a dural leak and has had surgery. Please see the surgery and operative notes. Hospital Course 36-year-old gentleman with type 1 diabetes mellitus. He was readmitted for spinal CSF leak and had a durotomy repair. He recuperated slowly but steadily. He did have a postop ileus. Ultimately he recovered fully and is now ambulating with physical therapy greater than 200 feet and able to manage stairs. He has been carefully reinstructed on his postoperative instructions for activities. He is now stable for discharge. He is in improved condition as compared to the time of admission he is competent for medical decisions his rehabilitation potential is good he has no known chemical communicable diseases. Home Meds Reported Medications Insulin* PUMP (Insulin* PUMP) 1 Each Pump.resvr, 1 EACH MC . DIRECTED, EA PER PT BROUGHT APIDRA RX FROM HOME WILL PROVIDE MEDS TO PHARMACY PER PT REQUEST 03/09/17 Simvastatin* (Simvastatin*) 80 Mg Tablet, 40 MG PO QHS, #30 TAB 01/30/17 Lisinopril* (Lisinopril*) 20 Mg Tablet, 20 MG PO DAILY, #30 TAB 01/30/17 Levothyroxine Sodium* (Levothyroxine Sodium*) 175 Mcg Tablet, 175 MCG PO BEFORE BREAKFAST, #30 TAB 01/30/17 Bupropion Hcl* (Bupropion XL*) 300 Mg Tab.sr.24h, 300 MG PO DAILY, TAB.SA 01/30/17 Trazodone Hcl* (Trazodone Hcl*) 50 Mg Tablet, 50 MG PO QHS, #30 TAB 01/30/17 Alprazolam* (Alprazolam*) 1 Mg Tablet, 1 MG PO TID, TAB 01/30/17 Gabapentin* (Gabapentin*) 300 Mg Capsule, 600 MG PO DAILY Y for PM, #180 CAP 01/30/17 Gabapentin* (Gabapentin*) 300 Mg Capsule, 300 MG PO AM, #60 CAP 01/30/17 Valacyclovir Hcl* (Valacyclovir Hcl*) 500 Mg Tablet, 1 GM PO DAILY, TAB 01/30/17 Cyclobenzaprine Hcl* (Cyclobenzaprine Hcl*) 10 Mg Tablet, 10 MG PO TID, #90 TAB 01/30/17 Follow-up Plan Spinal surgery in 2 weeks; primary care in 2 weeks Primary Care Provider Not On Staff Doctor Time spent on discharge: > 30 minutes Pending Labs Laboratory Tests Test 03/12/17 12:39 03/12/17 17:47 03/12/17 21:45 03/13/17 01:41 Bedside Glucose 108mg/dL (70-220) 153mg/dL (70-220) 183mg/dL (70-220) 71mg/dL (70-220) Test 03/13/17 04:48 03/13/17 05:46 03/13/17 06:01 03/13/17 06:17 Sodium Level 139mmol/L (135-144) Potassium Level 4.2mmol/L (3.5-5.1) Chloride Level 95mmol/L (97-110) Carbon Dioxide Level 29mmol/L (21-31) Anion Gap 19 (8-16) Blood Urea Nitrogen 10mg/dl (7-20) Creatinine 0.85mg/dl (0.61-1.24) Glucose Level 47mg/dl (70-220) Calcium Level 9.9mg/dl (8.4-10.2) Bedside Glucose 65mg/dL (70-220) 66mg/dL (70-220) 103mg/dL (70-220) Test 03/13/17 06:35 03/13/17 08:30 Bedside Glucose 108mg/dL (70-220) 241mg/dL (70-220) DANA SANTOS MD Mar 13, 2017 09:40
--- NOTE | 2017-03-13 20:58 | RADRPT ---
Vent Rate: 87 bpm RR Interval: 0 msec KS Interval: 130 msec QRS Duration: 84 msec QT Interval: 350 msec QTC Interval: 421 msec P-R-T [place]: 60 - 86 - 74 degrees Normal sinus rhythm Normal ECG Electronically Signed By: Phani Oshea [id number]
== END 2017-03-13 10:40 | disposition home health service (06) | DRG 29 ==
LOC: REC 10:40 → MS1 21:28
PROVIDERS: ADMIT Orthopaedic Surgery; ATTEND Orthopaedic Surgery
PROC: 00QT0ZZ Repair Spinal Meninges, Open Approach (ICD-10-PCS; 2017-03-09)
PROC: 00CT0ZZ Extirpation of Matter from Spinal Meninges, Open Approach (ICD-10-PCS; principal; 2017-03-09 13:00)
DX: G97.82 Other postprocedural complications and disorders of nervous system (principal); G96.19 Other disorders of meninges, not elsewhere classified; G96.0 Cerebrospinal fluid leak; G97.41 Accidental puncture or laceration of dura during a procedure; K56.7 Ileus, unspecified; Y83.8 Other surgical procedures as the cause of abnormal reaction of the patient, or of later complication, without mention of misadventure at the time of the procedure; E10.9 Type 1 diabetes mellitus without complications; I10 Essential (primary) hypertension; J45.40 Moderate persistent asthma, uncomplicated; E03.9 Hypothyroidism, unspecified; T40.2X5A Adverse effect of other opioids, initial encounter; Y92.239 Unspecified place in hospital as the place of occurrence of the external cause; R91.8 Other nonspecific abnormal finding of lung field; N28.9 Disorder of kidney and ureter, unspecified
CPT/HCPCS: 71010; 74000; 80048; 80053; 80069; 82947; 82962; 83735; 84484; 85014; 85018; 85025; 86850; 86900; 86901; 87070; 87075; 87086; 87102; 93005; 97162; J0690; J0702; J1100; J2250; J2270; J2405; J2710; J2765; J3010; J7030; J7120; J7999

== ENCOUNTER 2017-03-23 10:01 | Inpatient (IN) | payer BC, MEDICAID ==
[~2017-03-23] VITALS: Ht 167.6 cm; Wt 75.3 kg
[2017-03-23] VITALS (27 sets, daily range): BP systolic 100–131; BP diastolic 54–72; PULSE 96–112; RESP 11–21; TEMP 98; Ht 167.6 cm; Wt 75.3 kg
[~2017-03-23 10:01] MED LIST changes: +ATROPINE 1 MG/10 ML SYRINGE ONE; -CEFAZOLIN 2 GM/50 ML (PMX) 50 ML IVPB SCH; +EPHEDrine SULFATE 50 MG/5 ML SYG ONE; +PUMP INSULIN MC
[2017-03-23] MEDS ORDERED: SODIUM CHLORIDE 0.9% 1L BAG IV* STA (10:08)
[2017-03-23] MEDS ORDERED: ACETAMINOPHEN 325 MG TAB PO STA (10:08)
[2017-03-23] MEDS ORDERED: morphine 4 MG/ML VIAL IV STA ×2 (10:17→12:34)
[2017-03-23] MEDS ORDERED: ONDANSETRON 4 MG INJ IV STA (10:17)
[2017-03-23] MEDS ORDERED: ACETAMINOPHEN 325 MG TAB PO PRN ×2 (10:30→19:00)
[2017-03-23] MEDS ORDERED: ONDANSETRON 4 MG INJ IV PRN (10:30)
[2017-03-23 10:34] LABS: ADD SCAN DIFF NO
[2017-03-23 10:41] LABS: ABNORMAL IP MESSAGE 1; BASOPHIL # 0.1 10^3/ul (0.0-0.1); BASOPHILS % 0.3 % (0.0-2.0); EOSINOPHILS # 0.1 10^3/ul (0.0-0.5); EOSINOPHILS % 0.3 % (0.0-7.0); HEMATOCRIT 45.5 % (42.0-52.0); HEMOGLOBIN 15.2 g/dl (14.0-18.0); LYMPHOCYTES # 1.7 10^3/ul (0.8-2.9); LYMPHOCYTES % 9.7 % (15.0-51.0); MEAN CORPUSCULAR HEMOGLOBIN 30.5 pg (29.0-33.0); MEAN CORPUSCULAR HGB CONC 33.4 g/dl (32.0-37.0); MEAN CORPUSCULAR VOLUME 91.2 fl (82.0-101.0); MEAN PLATELET VOLUME 12.2 fl (7.4-10.4); MONOCYTE # 1.6 10^3/ul (0.3-0.9); MONOCYTES % 9.1 % (0.0-11.0); NEUTROPHIL # 13.7 10^3/ul (1.6-7.5); PLATELET COUNT 189 10^3/UL (140-415); RED BLOOD COUNT 4.99 10^6/ul (4.70-6.10); RED CELL DISTRIBUTION WIDTH 13.2 % (11.5-14.5); WHITE BLOOD COUNT 17.2 10^3/ul (4.8-10.8)
[2017-03-23 10:53] LABS: ALANINE AMINOTRANSFERASE 33 IU/L (13-69); ALKALINE PHOSPHATASE 61 IU/L (42-121); ANION GAP 13 (8-16); ASPARTATE AMINO TRANSFERASE 18 IU/L (15-46); BILIRUBIN,INDIRECT 0.5 mg/dl (0-1.1); BILIRUBIN,TOTAL 0.5 mg/dl (0.2-1.3); BLOOD UREA NITROGEN 8 mg/dl (7-20); CALCIUM 9.9 mg/dl (8.4-10.2); CARBON DIOXIDE 27 mmol/L (21-31); CHLORIDE 95 mmol/L (97-110); CREATININE 1.15 mg/dl (0.61-1.24); GLUCOSE 234 mg/dl (70-220); POTASSIUM 4.7 mmol/L (3.5-5.1); SODIUM 130 mmol/L (135-144); TOTAL PROTEIN 7.5 g/dl (6.1-8.1)
[2017-03-23 11:04] LABS: TROPONIN-I < 0.012 ng/ml (0.00-0.12)
[2017-03-23 11:07] LABS: INR 0.99; PROTIME 13.1 Sec (12.2-14.2)
[2017-03-23 11:08] LABS: PARTIAL THROMBOPLASTIN TIME 29.5 Sec (25.0-35.0)
--- NOTE | 2017-03-23 11:17 | RADRPT ---
PROCEDURE: Chest Radiograph. CLINICAL INDICATION: Postop TECHNIQUE: Single frontal chest radiograph. COMPARISON: Chest radiograph 03/11/2017 FINDINGS: The cardiomediastinal silhouette is within normal limits. No infiltrate or effusion is seen. Th e bones are intact. IMPRESSION: 1. Unremarkable chest radiograph. RPTAT: KK .Robles Lopez MD, MD Date Time Electronically viewed and signed by .Robles Lopez MD, on 03/23/2017 11:17 .B/
[2017-03-23] MEDS ORDERED: ALPR2TAB PO (11:42)
[2017-03-23] MEDS: VANCOMYCIN 1 GM (PMX) 250 ML IVPB SCH ×2 (12:08→13:43)
[2017-03-23] MEDS: PIPER-TAZO 3.375 GM IV (PMX) 100 ML IVPB ONE ×2 (12:08→12:48)
--- NOTE | 2017-03-23 13:01 | ERA ---
ER Documentation Chief Complaint Date/Time DATE: 03/23/17 TIME: 12:58 Chief Complaint Copmplains of post op pain HPI Patient is a 28-year-old male with diabetes and smoking who presents with a back surgery which has become infected. The patient had back surgery in November and then had a second back surgery 2 weeks ago. He said that he now is pus coming out of the wound. The symptoms started 2 days ago but have gotten worse today. He has fevers and back pain. Dr. Singh the surgeon has come to the bedside to explain what was going on and is going to take the patient to the operating room today for washout. The patient has been on Keflex for the past 2 days. ROS All systems reviewed and are negative except as per history of present illness. Medications Home Meds Reported Medications Alprazolam* (Xanax*) 2 Mg Tablet, 2 MG PO TID, TAB 03/23/17 Insulin* PUMP (Insulin* PUMP) 1 Each Pump.resvr, 1 EACH MC . DIRECTED, EA PER PT BROUGHT APIDRA RX FROM HOME WILL PROVIDE MEDS TO PHARMACY PER PT REQUEST 03/09/17 Simvastatin* (Simvastatin*) 80 Mg Tablet, 40 MG PO QHS, #30 TAB 01/30/17 Lisinopril* (Lisinopril*) 20 Mg Tablet, 20 MG PO DAILY, #30 TAB 01/30/17 Levothyroxine Sodium* (Levothyroxine Sodium*) 175 Mcg Tablet, 175 MCG PO BEFORE BREAKFAST, #30 TAB 01/30/17 Bupropion Hcl* (Bupropion XL*) 300 Mg Tab.sr.24h, 300 MG PO DAILY, TAB.SA 01/30/17 Trazodone Hcl* (Trazodone Hcl*) 50 Mg Tablet, 50 MG PO QHS, #30 TAB 01/30/17 Gabapentin* (Gabapentin*) 300 Mg Capsule, 600 MG PO DAILY Y for PM, #180 CAP 01/30/17 Gabapentin* (Gabapentin*) 300 Mg Capsule, 300 MG PO AM, #60 CAP 01/30/17 Valacyclovir Hcl* (Valacyclovir Hcl*) 500 Mg Tablet, 1 GM PO DAILY, TAB 01/30/17 Cyclobenzaprine Hcl* (Cyclobenzaprine Hcl*) 10 Mg Tablet, 10 MG PO TID, #90 TAB 01/30/17 Discontinued Reported Medications Alprazolam* (Alprazolam*) 1 Mg Tablet, 1 MG PO TID, TAB 01/30/17 Allergies Allergies: Coded Allergies: insulin aspart (Verified Allergy, Unknown, rash, resistance to SQ, 03/23/17 ) hydromorphone (Verified Adverse Reaction, Unknown, 03/23/17) PT REPORTED ALLERGY TO HYDROMORPHONE. PER PHARMACIST DISCUSSION WITH DR SINGH- PT IS NOT ALLERGIC TO DILAUDID. HE JUST DID NOT LIKE IT WHEN HE GOT IT LAST TIME. HE IS OK TAKING MORPHINE, PERCOCET AND OTHER PAIN MEDS. PMhx/Soc History of Surgery: Yes (LaMINECTOMY 02/2017, spinal leak rpr 03/2017, R RIB RESECTION, CYST REMOVAL) Anesthesia Reaction: No Hx Neurological Disorder: No Hx Respiratory Disorders: No Hx Cardiac Disorders: No Hx Psychiatric Problems: No Hx Miscellaneous Medical Probl: Yes (dm type 1 (on pump), kidney disease, thyroid do) Hx Alcohol Use: Yes (SOCIALY) Hx Substance Use: No Hx Tobacco Use: Yes (EVERY DAY) Smoking Status: Current every day smoker FmHx Family History: No diabetes Physical Exam Vitals Vital Signs Date Time Temp Pulse Resp B/P Pulse Ox O2 Delivery O2 Flow Rate FiO2 03/23/17 12:04 98.0 107 20 118/77 97 Room Air 03/23/17 10:03 100.5 120 20 110/67 97 Physical Exam Const: Moderate distress secondary to pain Head: Atraumatic Eyes: Normal Conjunctiva ENT: Normal External Ears, Nose and Mouth. Neck: Full range of motion..~ No meningismus. Resp: Clear to auscultation bilaterally Cardio: Regular rate and rhythm, no murmurs Abd: Soft, non tender, non distended. Normal bowel sounds Skin: Redness and infection to the lower back around the incision site Back: No midline or flank tenderness Ext: No cyanosis, or edema Neur: Awake and alert Psych: Normal Mood and Affect Result Diagram: 03/23/17 1020 03/23/17 1020 Results 24 hrs Laboratory Tests Test 03/23/17 10:20 03/23/17 10:51 White Blood Count 17.210^3/ul Red Blood Count 4.9910^6/ul Hemoglobin 15.2g/dl Hematocrit 45.5% Mean Corpuscular Volume 91.2fl Mean Corpuscular Hemoglobin 30.5pg Mean Corpuscular Hemoglobin Concent 33.4g/dl Red Cell Distribution Width 13.2% Platelet Count 39193^3/UL Mean Platelet Volume 12.2fl Neutrophils % 80.0% Lymphocytes % 9.7% Monocytes % 9.1% Eosinophils % 0.3% Basophils % 0.3% Nucleated Red Blood Cells % 0.0/100WBC Neutrophils # 13.710^3/ul Lymphocytes # 1.710^3/ul Monocytes # 1.610^3/ul Eosinophils # 0.110^3/ul Basophils # 0.110^3/ul Nucleated Red Blood Cells # 0.010^3/ul Prothrombin Time 13.1Sec Prothrombin Time Ratio 1.0 INR International Normalized Ratio 0.99 Activated Partial Thromboplast Time 29.5Sec Sodium Level 130mmol/L Potassium Level 4.7mmol/L Chloride Level 95mmol/L Carbon Dioxide Level 27mmol/L Anion Gap 13 Blood Urea Nitrogen 8mg/dl Creatinine 1.15mg/dl Glucose Level 234mg/dl Lactic Acid Level 1.2mmol/L Calcium Level 9.9mg/dl Total Bilirubin 0.5mg/dl Direct Bilirubin 0.00mg/dl Indirect Bilirubin 0.5mg/dl Aspartate Amino Transf (AST/SGOT) 18IU/L Alanine Aminotransferase (ALT/SGPT) 33IU/L Alkaline Phosphatase 61IU/L Troponin I < 0.012ng/ml Total Protein 7.5g/dl Albumin 5.0g/dl Globulin 2.50g/dl Albumin/Globulin Ratio 2.00 Bedside Glucose 213mg/dL Current Medications Medications (Trade) Dose Ordered Sig/Ruth Route PRN Reason Start Time Stop Time Status Last Admin Dose Admin Sodium Chloride (NS) 2,330 ml BOLUS OVER 2 HOURS STAT IV* 03/23/17 10:08 03/23/17 10:09 DC 03/23/17 10:43 Acetaminophen (Tylenol Tab) 650 mg ONCE STAT PO 03/23/17 10:08 03/23/17 10:09 DC Ondansetron HCl (Zofran Inj) 4 mg BRIDGE ORDER PRN IV NAUSEA AND/OR VOMITING 03/23/17 10:30 03/24/17 10:29 Acetaminophen (Tylenol Tab) 650 mg ER BRIDGE PRN PO MILD PAIN/FEVER 03/23/17 10:30 03/24/17 10:29 Morphine Sulfate (morphine) 4 mg ONCE STAT IV 03/23/17 10:17 03/23/17 10:18 DC 03/23/17 10:44 Ondansetron HCl 4 mg 4 mg ONCE STAT IV 03/23/17 10:17 03/23/17 10:18 DC 03/23/17 10:43 Vancomycin HCl 250 ml @ 125 mls/hr ONCE IVPB 03/23/17 10:30 03/23/17 12:29 DC Piperacillin Sod/ Tazobactam Sod (Zosyn 3.375gm/ 100 ml (Pmx)) 100 ml @ 200 mls/hr ONCE ONCE IVPB 03/23/17 10:30 03/23/17 10:59 DC 03/23/17 12:48 Morphine Sulfate (morphine) 4 mg ONCE STAT IV 03/23/17 12:34 03/23/17 12:35 DC Procedures/MDM Chest x-ray shows no pneumonia per radiology. EKG read by me: Rate/Rhythm: Sinus tachycardia Intervals: Normal Impression: Sinus tachycardia without ischemia Smoking Cessation Therapy: Pt. was lectured for greater than 3 minutes on the health risks of continued smoking and the benefits of cessation. Admit MDM: Patient's infectious symptoms have not stabilized and the patient is at risk of rapid decompensation. The patient will be admitted for careful hydration, antibiotic therapy, and infectious source control. Severe Sepsis criteria: Infectious source: Wound infection End organ damage indicated by: No end organ damage at this time Sepsis Management: Time of recognition of sepsis: Upon arrival Within 3 hours of recognition: Blood cultures x 2 before broad-spectrum antibiotics: Yes 30 ml/kg NS bolus Completed Initial lactate 1.2 Repeat lactate pending Time of recognition of septic shock: No septic shock Septic Shock Assessment: Any lactic acid > 4.0 No Persistent hypotension (SBP < 90 or 40 mmHg drop, MAP < 65) despite 30 mL/kg IV fluid bolus No Volume Re-assessment for Septic Shock (post 30 ml/kg bolus): No septic shock at this time Persistent Hypotension Treatment: Comfort care No Central line Not Required Vasopressor started Not required I considered further perfusion assessment with CVP measurement, SCVO2, bedside ultrasound volume assessment, passive leg raise, trial of further fluid bolus. And proceeded with 30 ml/kg fluid bolus of NSS, broad spectrum antibiotics, and admission. Accepting Care Team Current data and ongoing care discussed. Admitting Physician: Dr. Singh the ortho surgeon Brand Marketing Manager(s): None Outstanding Data: Culture results and repeat lactic acid Critical Care: Critical care time 35 minutes excluding all billable procedures Emergent fluid management while maintaining close respiratory support. Provision of immediate and broad-spectrum antibiotic therapy. Simultaneous assessment for possible sources in order to direct targeted therapy. Consideration for invasive and chemical support to prevent cardiopulmonary collapse. Departure Diagnosis: Primary Impression: Sepsis Qualified Code: A41.9 - Sepsis, due to unspecified organism Additional Impressions: Pain Post op infection Hyperglycemia Condition: Serious JAYY STEINER MD Mar 23, 2017 13:00
[2017-03-23] MEDS ORDERED: NEOSTIGMINE 3 MG/3 ML SYRINGE ONE (14:25)
[2017-03-23] MEDS ORDERED: GLYCOPYRROLATE 0.4 MG INJ ONE (14:25)
[2017-03-23] MEDS ORDERED: LIDOCAINE 2% (SDV) 5 ML INJ ONE (14:25)
[2017-03-23] MEDS ORDERED: ROCURONIUM 50 MG INJ ONE (14:25)
[2017-03-23] MEDS ORDERED: PROPOFOL 20 ML ONE (14:25)
[2017-03-23] MEDS ORDERED: MIDAZOLAM 1 MG/ML 2 ML INJ ONE (14:25)
[2017-03-23] MEDS ORDERED: FENTAnyl 50 MCG/ML VIAL ONE (14:25)
[2017-03-23] MEDS ORDERED: DEXAMETHASONE 4 MG/ML 1 ML INJ ONE (14:32)
[2017-03-23] MEDS ORDERED: ONDANSETRON 4 MG INJ ONE (14:33)
[2017-03-23] MEDS ORDERED: ACETAMINOPHEN 1000MG/100ML IV 100 ML IVPB ONE (15:00)
--- NOTE | 2017-03-23 16:21 | CONS ---
Date/Time of Note Date/Time of Note DATE: 03/23/17 TIME: 16:20 Consultation Date/Type/Reason Admit Date/Time Type of Consultation: ID Social History Smoking Status: Current every day smoker Exam/Review of Systems Vital Signs Vitals Vital Signs Date Time Temp Pulse Resp B/P Pulse Ox O2 Delivery O2 Flow Rate FiO2 03/23/17 13:51 107 20 105/68 97 Room Air 03/23/17 12:04 98.0 Results Result Diagram: 03/23/17 1020 03/23/17 1020 Results 24 hrs Laboratory Tests Test 03/23/17 10:20 03/23/17 10:51 03/23/17 12:55 White Blood Count 17.2 #H Red Blood Count 4.99 Hemoglobin 15.2 Hematocrit 45.5 Mean Corpuscular Volume 91.2 Mean Corpuscular Hemoglobin 30.5 Mean Corpuscular Hemoglobin Concent 33.4 Red Cell Distribution Width 13.2 Platelet Count 189 Mean Platelet Volume 12.2 H Neutrophils % 80.0 H Lymphocytes % 9.7 L Monocytes % 9.1 Eosinophils % 0.3 Basophils % 0.3 Nucleated Red Blood Cells % 0.0 Neutrophils # 13.7 H Lymphocytes # 1.7 Monocytes # 1.6 H Eosinophils # 0.1 Basophils # 0.1 Nucleated Red Blood Cells # 0.0 Erythrocyte Sedimentation Rate 16.0 H Prothrombin Time 13.1 Prothrombin Time Ratio 1.0 INR International Normalized Ratio 0.99 Activated Partial Thromboplast Time 29.5 Sodium Level 130 L Potassium Level 4.7 Chloride Level 95 L Carbon Dioxide Level 27 Anion Gap 13 Blood Urea Nitrogen 8 Creatinine 1.15 Glucose Level 234 H Lactic Acid Level 1.2 1.1 Calcium Level 9.9 Total Bilirubin 0.5 Direct Bilirubin 0.00 Indirect Bilirubin 0.5 Aspartate Amino Transf (AST/SGOT) 18 Alanine Aminotransferase (ALT/SGPT) 33 Alkaline Phosphatase 61 Troponin I < 0.012 Total Protein 7.5 Albumin 5.0 H Globulin 2.50 Albumin/Globulin Ratio 2.00 Bedside Glucose 213 ALBERT ROBERTS MD Mar 23, 2017 16:21
[2017-03-23] MEDS ORDERED: VASOPRESSIN 20 UNITS INJ ONE (17:07)
[2017-03-23] MEDS ORDERED: VANCOMYCIN 1 GM INJ ONE (17:10)
[2017-03-23] MEDS ORDERED: VANCOMYCIN 1 GM INJ INJ ONE (18:14)
--- NOTE | 2017-03-23 18:50 | HP ---
Date/Time of Note Date/Time of Note DATE: 03/23/17 TIME: 18:45 Assessment/Plan VTE Prophylaxis VTE Prophylaxis Intervention: ambulation, anti-embolic stocking VTE Confirmed-Overlap Tx Rcvd Pt Rcvd Overlap Therapy: Yes Reason for no Overlap Therapy: Therapeutic INR Lines/Catheters IV Catheter Type (from Nrsg): Peripheral IV Central line still needed: No HPI/ROS Admit Date/Time Admit Date/Time Hx of Present Illness Diagnosis: L5-S1 spinal stenosis with epidural lipomatosis complicated with intraoperative dural tear with subsequent formation of the pseudomeningocele now with a post-operative wound infection Procedures performed: L5-S1 decompression on January 30, 2017 with subsequent formation of persistent CSF leak and formation of pseudomeningocele status post dural repair on April 08, 2017 and s/p I&D lumbar wound 03/23/2017 History of present illness: Eduardo is a pleasant 36-year-old male who has been seen by me for his chronic history of low back and bilateral leg pain. He was found to have severe spinal stenosis at L5-S1 secondary to epidural lipomatosis. His symptoms had failed to improve with a conservative course of treatment including physical therapy and an epidural steroid injection. Given that his symptoms had been limiting his quality of life and that he failed a conservative course of treatment, he underwent an L5-S1 decompression procedure on January 30, 2017. His surgery was complicated by a small pinhole dural tear which was repaired with a patch and DuraSeal. He was also placed on 48 hours of bedrest after this. He was initially doing well postoperatively. He was seen 2 weeks postoperatively at which point his incision was well-healed and he was not complaining of any significant headaches. He reports that about 3-4 weeks after his surgery, he was doing some heavy lifting when he noticed some positional headaches. He was evaluated in our office for his 4 week follow-up appointment. At this time, he reported some increased frequency in his headaches which were better lying down and worse with standing and walking. He was not noted to have any neurological deficits on physical exam. His incision was well-healed. He did have some persistent low back pain. An MRI of the lumbar spine with and without contrast was ordered on March 02 to evaluate for a possible persistent CSF leak/pseudomeningocele. This MRI was performed on March 05, 2017. Upon review of this MRI, patient was found to have a pseudomeningocele and operative management was planned. During this time patient has denied any fevers or chills. His wound has remained clean dry and intact. He underwent repair of a dural tear on April 08, 2017. he was seen for a wound check on postop day 12 and was found to have some mild dehiscence on the inferior aspect of his wound. there is no significant drainage at the wound at this time. he was also noted to be afebrile . he denied any fevers or chills during this time. he was told to follow-up today ( postoperative day 14) for repeat wound check after being started on Keflex. During the clinic visit today , patient was noted to be febrile and had increased wound dehiscence. he was also noted to have mild purulent drainage from the wound. Patient was admitted to the hospital and scheduled for a irrigation and debridement of his lumbar wound . he has been started on IV fluids . Blood and urine cultures have also been obtained. a sepsis protocol has been initiated. on admission to the ER his Tmax was 100. He denies any saddle anaesthesia. He denies any issues with bowel or bladder control. The patient does admit to smoking which he had been instructed to stop before and after the prior surgical procedure given the increased risks of infection. PAST MEDICAL HISTORY: Anxiety, Type 1 diabetes, hypercholesterolemia, kidney disease PAST SURGICAL HISTORY: Surgery for broken ribs, surgery for thoracic outlet syndrome, L5-S1 decompression complicated with dural tear and subsequent development of pseudomeningocele CURRENT MEDICATIONS: Chantix, bupropion, NovoLog, simvastatin, alprazolam, ibuprofen, pro-air, tramadol, hydrocodoneacetaminophen, meloxicam, Synthroid, with an appropriate, valacyclovir, trazodone, cyclobenzaprine, Percocet p.r.n. pain ALLERGIES: Dilantin, dilaudid SOCIAL HISTORY: positive for tobacco use . FAMILY HISTORY: Noncontributory REVIEW OF SYSTEMS: The review of systems as documented today in the medical record is remarkable for the positive orthopedic problems discussed above and is otherwise non-contributory with respect to Constitutional, ENT, Cardiovascular, , Skin, Neurologic, Endocrine, Hematologic, Psychiatric, Gastrointestinal, Respiratory, Eyes and Allergic/Immunologic systems except as noted on the intake form. OBJECTIVE FINDINGS: Blood pressure 112/77, HR 110, temperature 100.6 GENERAL: The patient is a well-developed, well nourished male in no acute distress. HEENT: Normocephalic, atraumatic. Pupils equally round, reactive to light. Extraocular motion is intact. NECK: Supple without lymphadenopathy. Trachea midline. RESPIRATIONS: Regular and unlabored without abnormal intercostal retractions or abnormal diaphragmatic movement. CARDIOVASCULAR: No cyanosis, clubbing, or edema. SKIN: Without lesions, masses, or rash. PSYCHIATRIC: Normal in mild distress. LUMBAR EXAMINATION: of the lower extremities is grossly intact. His posterior midline incision shows increased erythema and some mild purulent drainage. There is increased amount of dehiscence measuring approximately 1-1/2 cm. Patient also has increased tenderness around the wound. MRI of the lumbar spine performed on November 05, 2016 was reviewed. IMPRESSION L5-S1: There is a 3 mm broad-based central protrusion without canal or lateral recess stenosis. Disc bulge mildly narrows the left greater than right neural foramen. There is epidural lipomatosis compresses the thecal sac. The latter finding is progressive in comparison to previous with further compression. MRI of the lumbar spine performed on March 03, 2017 at [facility] reviewed. Freshened: Patient has a 3 mm broad-based central protrusion which does not cause significant canal or lateral recess stenosis. He has interval L5 laminectomy with development of a pseudomeningocele. DIAGNOSES: 1. L5-S1 spinal stenosis with epidural lipomatosis status post decompression complicated by pseudomeningocele status post dural repair now with postoperative wound infection TREATMENT RECOMMENDATIONS: A thorough discussion regarding the patients diagnosis is discussed in detail. All patients questions were answered prior to the conclusion of this visit. Patients is currently 14 days status post dural repair for a pseudomeningocele after a prior decompression procedure. His headaches have resolved. He currently has increased erythema and some purulent drainage with some dehiscence of his wound. He has also developed a fever. The Keflex and superficial debridement of the last visit has have failed to help with his symptoms. He is scheduled to under an I&D of the wound today. We will start him on empiric coverage with Vancomycin and Zosyn for his wound infection after obtaining cultures. We will consult ID and medicine to help with management of this patient PMH/Family/Social Social History Smoking Status: Current every day smoker Exam/Review of Systems Vital Signs Vitals Vital Signs Date Time Temp Pulse Resp B/P Pulse Ox O2 Delivery O2 Flow Rate FiO2 7/13/17 13:51 107 20 105/68 97 Room Air 03/23/17 12:04 98.0 Labs Result Diagram: 03/23/17 1020 03/23/17 1020 Medications Medications Current Medications Zolpidem Tartrate (Ambien) 10 mg HS PRN PO INSOMNIA; Start 03/23/17 at 19:00; Status UNV Prochlorperazine (Compazine) 10 mg Q4H PRN PO NAUSEA AND/OR VOMITING; Start at 19:00; Status UNV Ondansetron HCl (Zofran Inj) 4 mg Q6H PRN IV NAUSEA AND/OR VOMITING; Start at 19:00; Status UNV Al Hydrox/Mg Hydrox/Simethicone (Mag-Al Plus) 15 ml Q4H PRN PO CONSTIPATION; Start 03/23/17 at 19:00; Status UNV Docusate Sodium (Colace) 100 mg BID PO ; Start 03/24/17 at 09:00; Status UNV Acetaminophen (Tylenol Tab) 650 mg Q4H PRN PO TEMP GREATER THAN 101F OR GUTIERREZ; Start 03/23/17 at 19:00; Status UNV Morphine Sulfate (morphine) Q4PCA IV ; Start 03/23/17 at 19:00; Status UNV Naloxone HCl 0.2 mg 0.2 mg Q2M PRN IV RR 8 BREATHS/MIN OR LESS; Start 03/23/17 at 19:00; Status UNV Piperacillin Sod/ Tazobactam Sod (Zosyn 3.375gm/ 100 ml (Pmx)) 100 ml @ 200 mls /hr Q8 IVPB ; Start 03/23/17 at 22:00; Status UNV JOSE SINGH MD Mar 23, 2017 18:49
[2017-03-23] MEDS ORDERED: morphine 1 MG/ML 30 ML (PCA) IV SCH (19:00)
[2017-03-23] MEDS ORDERED: PROCHLORPERAZINE 10 MG TAB PO PRN (19:00)
[2017-03-23] MEDS ORDERED: NALOXONE (0.4 MG/ML) INJ IV PRN (19:00)
[2017-03-23] MEDS ORDERED: AL HYDROX/MG HYDROX/SIMETH 30 ML CUP PO PRN (19:00)
[2017-03-23] MEDS ORDERED: NACL 0.9% 3 ML SYG IV SCH (19:00)
[2017-03-23] MEDS ORDERED: VANCOMYCIN IV PER PHARMACY XX SCH (19:00)
--- NOTE | 2017-03-23 19:23 | OPR ---
Date/Time of Note Date/Time of Note DATE: 03/23/17 TIME: 18:55 Operative Report Free Text/Dictation DATE OF OPERATION: 03/23/2017 PREOPERATIVE DIAGNOSES: L5-S1 spinal stenosis with epidural lipomatosis complicated with intraoperative dural tear with subsequent formation of the pseudomeningocele with dural repair on March now with a post-operative wound infection POSTOPERATIVE DIAGNOSES: L5-S1 spinal stenosis with epidural lipomatosis complicated with intraoperative dural tear with subsequent formation of the pseudomeningocele witjh dural repair on March now with a post-operative wound infection OPERATION PERFORMED: Irrigation and debridement of L5-S1 lumbar wound SURGEON: Jose Singh MD ANESTHESIA: General endotracheal ESTIMATED BLOOD LOSS: 200 mL SURGICAL INDICATION: Eduardo is a pleasant 36-year-old male who has been seen by me for his chronic history of low back and bilateral leg pain. He was found to have severe spinal stenosis at L5-S1 secondary to epidural lipomatosis. His symptoms had failed to improve with a conservative course of treatment including physical therapy and an epidural steroid injection. Given that his symptoms had been limiting his quality of life and that he failed a conservative course of treatment, he underwent an L5-S1 decompression procedure on January 30, 2017. His surgery was complicated by a small dural tear which was repaired with a patch and DuraSeal. He was also placed on 48 hours of bedrest after this. He was initially doing well postoperatively. He was seen 2 weeks postoperatively at which point his incision was well-healed and he was not complaining of any significant headaches. He reports that about 3-4 weeks after his surgery, he was doing some heavy lifting when he noticed some positional headaches. He was evaluated in our office for his 4 week follow-up appointment. At this time, he reported some increased frequency in his headaches which were better lying down and worse with standing and walking. He was not noted to have any neurological deficits on physical exam. His incision was well-healed. He did have some persistent low back pain. An MRI of the lumbar spine with and without contrast was ordered on March 02 to evaluate for a possible persistent CSF leak/pseudomeningocele. This MRI was performed on March 05, 2017. Upon review of this MRI, patient was found to have a pseudomeningocele and operative management was planned. During this time patient has denied any fevers or chills. His wound has remained clean dry and intact. He underwent repair of a dural tear on April 08, 2017. He was seen for a wound check on postop day 12 and was found to have some mild dehiscence on the inferior aspect of his wound. There was no significant drainage at the wound at this time. He was also noted to be afebrile . He denied any fevers or chills during this time. He was told to follow-up today ( postoperative day 14) for repeat wound check after being started on Keflex. During the clinic visit today, patient was noted to be febrile and had increased wound dehiscence. He was also noted to have mild purulent drainage from the wound. Patient was admitted to the hospital and scheduled for a irrigation and debridement of his lumbar wound .Risks, benefits , and alternatives to the irrigation and debridement procedure procedure were discussed as including but not exclusive of risks of bleeding, infection, sepsis , , nerve injury, cauda equina syndrome, iatrogenic instability, dural tear, myocardial infarction, stroke, pulmonary embolism were explained to the patient, and he wished to proceed. DESCRIPTION OF TECHNIQUE: The patient was identified in the preoperative area and taken to the operating room. Rapid induction of general endotracheal anesthesia was performed. The patient had been give Vancomycin 1 gram and 3.375 mg of Zosyn in the ER after wound cultures were obtained and these were redosed in the OR. The patient was then placed in the prone position on an [employer] table and all prominences were well padded. The back was prepped and draped in the usual sterile manner. A time-out was held. A longitudinal midline incision was then created using a 10 blade over the prior L5-S1 wound. 10-15 mL of purulent drainage was expressed. The purulent drainage was sent for gram stain, aerobic, anaerobic and fungal culture. A series of 4 cultures were obtained from the wound. The wound was meticulously debrided. The was no violation of the fascia identified. All the necrotic fat, muscle and soft tissue were meticuluously debrided using a rongeur and a series of curretes. The necrotic skin edges were removed using a 15 blade. All the soft tissues were debrided to healthy bleeding tissue. The wound was copiously irrigated with 6 liters of normal saline. All braided sutures were removed. The deep fascia was exposed down to the dura to ensure that there was no epidural collections. There were no collections noted. There was no CSF leak noted. Cultures were sent from the deep wound. The tissue deep to the fascia appeared healthy and viable. The deep wound was irrigated with another 6 liters of normal saline. The deep fascia was then repaired using 1 PDS in an interrupted fashion. A medium hemovac was then placed. The superficial fascia was repaired using 2-0 PDS in an interrupted fashion. The skin was closed using nylon. A sterile dressing was then placed. The patient was returned to the supine position. They were extubated immediately postoperatively and taken to the recovery room in stable condition. The medicine team and ID were consulted. COMPLICATIONS: None Anesthesia: general Estimated Blood Loss: 150 - 200 ml's Complications: None Pt Condition Post Procedure: stable Disposition: PACU JOSE SINGH MD Mar 23, 2017 19:14
[2017-03-23] MEDS ORDERED: GABAPENTIN 300 MG CAP PO PRN (21:00)
[2017-03-23] MEDS ORDERED: LACTATED RINGER'S 500 ML IV ONE (21:00)
[2017-03-23] MEDS: PIPER-TAZO 3.375 GM IV (PMX) 100 ML IVPB SCH (21:39)
[2017-03-23] MEDS: SOD CHLORIDE 0.9% 1,000 ML IV SCH (21:43)
[2017-03-23] MEDS: VANCOMYCIN 1.25 GM in SOD CHLORIDE 0.9% 250 ML IVPB SCH (21:53)
[2017-03-23] MEDS: traZODone 50 MG TAB PO SCH (23:29)
[2017-03-23] MEDS: ATORVASTATIN 20 MG TAB PO SCH (23:29)
[2017-03-24] VITALS (12 sets, daily range): BP systolic 100–130; BP diastolic 47–62; PULSE 87–111; RESP 18–20
[2017-03-24] MEDS: ALPRAZOLAM 0.5 MG TAB PO PRN ×2 (00:09→22:10)
[2017-03-24] MEDS: ZOLPIDEM 5 MG TAB PO PRN ×2 (00:09→22:09)
[2017-03-24] MEDS: CYCLOBENZAPRINE 10 MG TAB PO SCH ×6 (01:24→20:25)
[2017-03-24] MEDS: PIPER-TAZO 3.375 GM IV (PMX) 100 ML IVPB SCH ×3 (06:30→22:14)
[2017-03-24] MEDS: SOD CHLORIDE 0.9% 1,000 ML IV SCH ×2 (06:30→16:59)
[2017-03-24] MEDS: LEVOTHYROXINE 175 MCG TAB PO SCH (06:31)
[2017-03-24 07:15] LABS: HEMATOCRIT 34.6 % (42.0-52.0); HEMOGLOBIN 11.8 g/dl (14.0-18.0)
[2017-03-24] MEDS ORDERED: ACCU-CHEK XX SCH (07:25)
[2017-03-24 07:45] LABS: CALCIUM 9.1 mg/dl (8.4-10.2); CREATININE 1.08 mg/dl (0.61-1.24); POTASSIUM 4.4 mmol/L (3.5-5.1)
[2017-03-24] MEDS: DOCUSATE SODIUM 100 MG CAP PO SCH ×2 (08:22→20:23)
[2017-03-24] MEDS: GABAPENTIN 300 MG CAP PO SCH (08:22)
[2017-03-24] MEDS: LISINOPRIL 20 MG TAB PO SCH (08:22)
[2017-03-24] MEDS: VALACYCLOVIR 500 MG TAB PO SCH (08:22)
[2017-03-24] MEDS: BUPROPION (XL) 150 MG TAB PO SCH (08:23)
[2017-03-24] MEDS: INSULIN PUMP SC SCH ×4 (08:33→21:00)
[2017-03-24] MEDS: VANCOMYCIN 1.25 GM in SOD CHLORIDE 0.9% 250 ML IVPB SCH ×2 (08:40→21:11)
--- NOTE | 2017-03-24 08:54 | CONS ---
Date/Time of Note Date/Time of Note DATE: 03/24/17 TIME: 08:46 Consultation Date/Type/Reason Admit Date/Time Mar 23, 2017 at 22:35 Initial Consult Date Type of Consultation: Spine Follow-up 24 HR Interval Summary Free Text/Dictation S: 36 yo Male POD#1 s/p I&D of lumbar wound infection. Patient did well over night. He had no cute events. His pain is under good control with morphine [employer]. Patient has been afebrile. He denies any headaches. He has been up and walking. He reports significant improvement in back pain. He is currently on empiric coverage with Vancomycin and Zosyn. ID and Medicine are helping with medical management. O: Tmax 99.0 HR 80-111 BP: 103/6, Drain output:30cc in 12 hrs Gen: AAOx3, NAD Spine: 5/5 strength in b/l KE/TA/GS/EHL, +SILT L3-S1, dressing C/D/I, drain in place A/P: 36 yo Male POD#1 s/p I&D of lumbar wound infection. 1. Follow-up wound cultures 2. Abx as per ID 3. D/C [employer]LL [employer] start on PO Percocet 5/325 mg 1-2 tabs PO Q4 hrs prn pain 4. WBAT and up with PT 5. f/u am labs 6. appreciate internal medicine recs Exam/Review of Systems Vital Signs Vitals Vital Signs Date Time Temp Pulse Resp B/P Pulse Ox O2 Delivery O2 Flow Rate FiO2 03/24/17 07:32 99.0 98 18 103/61 95 03/23/17 22:25 Room Air Intake and Output 03/23/17 03/23/17 03/24/17 15:00 23:00 07:00 Intake Total 1200 ml 120 ml Output Total 230 ml 380 ml Balance 970 ml -260 ml Results Result Diagram: 03/24/17 0625 03/24/17 0625 Results 24 hrs Laboratory Tests Test 03/23/17 10:20 03/23/17 10:51 03/23/17 12:55 03/23/17 18:42 White Blood Count 17.2 #H Red Blood Count 4.99 Hemoglobin 15.2 Hematocrit 45.5 Mean Corpuscular Volume 91.2 Mean Corpuscular Hemoglobin 30.5 Mean Corpuscular Hemoglobin Concent 33.4 Red Cell Distribution Width 13.2 Platelet Count 189 Mean Platelet Volume 12.2 H Neutrophils % 80.0 H Lymphocytes % 9.7 L Monocytes % 9.1 Eosinophils % 0.3 Basophils % 0.3 Nucleated Red Blood Cells % 0.0 Neutrophils # 13.7 H Lymphocytes # 1.7 Monocytes # 1.6 H Eosinophils # 0.1 Basophils # 0.1 Nucleated Red Blood Cells # 0.0 Erythrocyte Sedimentation Rate 16.0 H Prothrombin Time 13.1 Prothrombin Time Ratio 1.0 INR International Normalized Ratio 0.99 Activated Partial Thromboplast Time 29.5 Sodium Level 130 L Potassium Level 4.7 Chloride Level 95 L Carbon Dioxide Level 27 Anion Gap 13 Blood Urea Nitrogen 8 Creatinine 1.15 Glucose Level 234 H Lactic Acid Level 1.2 1.1 Calcium Level 9.9 Total Bilirubin 0.5 Direct Bilirubin 0.00 Indirect Bilirubin 0.5 Aspartate Amino Transf (AST/SGOT) 18 Alanine Aminotransferase (ALT/SGPT) 33 Alkaline Phosphatase 61 Troponin I < 0.012 Total Protein 7.5 Albumin 5.0 H Globulin 2.50 Albumin/Globulin Ratio 2.00 Bedside Glucose 213 146 Test 03/23/17 20:17 03/23/17 21:10 03/24/17 01:45 03/24/17 06:25 Bedside Glucose 173 242 H Lactic Acid Level 1.0 Hemoglobin 11.8 #L Hematocrit 34.6 #L Sodium Level 135 Potassium Level 4.4 Chloride Level 102 Carbon Dioxide Level 26 Anion Gap 11 Blood Urea Nitrogen 10 Creatinine 1.08 Glucose Level 217 Calcium Level 9.1 Test 03/24/17 07:39 Bedside Glucose 210 Medications Medications Current Medications Zolpidem Tartrate (Ambien) 10 mg HS PRN PO INSOMNIA Last administered on t 00:09; Admin Dose 10 MG; Start 03/23/17 at 19:00 Prochlorperazine (Compazine) 10 mg Q4H PRN PO NAUSEA AND/OR VOMITING; Start at 19:00 Ondansetron HCl (Zofran Inj) 4 mg Q6H PRN IV NAUSEA AND/OR VOMITING; Start at 19:00 Al Hydrox/Mg Hydrox/Simethicone (Mag-Al Plus) 15 ml Q4H PRN PO CONSTIPATION; Start 03/23/17 at 19:00 Docusate Sodium (Colace) 100 mg BID PO Last administered on 03/24/17 08:22; Admin Dose 100 MG; Start 03/24/17 at 09:00 Acetaminophen (Tylenol Tab) 650 mg Q4H PRN PO TEMP GREATER THAN 101F OR GUTIERREZ; Start 03/23/17 at 19:00 Morphine Sulfate (morphine) Q4PCA IV Last administered on 03/23/17 19:27; Admin Dose 30 MG; Start 03/23/17 at 19:00 Naloxone HCl 0.2 mg 0.2 mg Q2M PRN IV RR 8 BREATHS/MIN OR LESS; Start 03/23/17 at 19:00 Piperacillin Sod/ Tazobactam Sod 100 ml @ 200 mls/hr Q8 IVPB Last administered on 03/24/17 06:30; Admin Dose 200 MLS/HR; Start 03/23/17 at 21:00 Vancomycin HCl 1.25 gm/Sodium Chloride 250 ml @ 83.333 mls/ hr Q12H IVPB Last administered on 03/24/17 08:40; Admin Dose 83.333 MLS/HR; Start 03/23/17 at 20: 30 Sodium Chloride (NS) 1,000 ml @ 100 mls/hr Q10H IV Last administered on 21:43; Admin Dose 100 MLS/HR; Start 03/23/17 at 21:00 Alprazolam (Xanax) 1 mg Q8H PRN PO ANXIETY Last administered on 03/24/17 00:09 ; Admin Dose 1 MG; Start 03/23/17 at 21:00 Bupropion HCl (Wellbutrin Xl) 300 mg DAILY PO Last administered on 03/24/17 08 :23; Admin Dose 300 MG; Start 03/24/17 at 09:00 Cyclobenzaprine HCl (Flexeril) 10 mg TID PO Last administered on 03/24/17 08: 22; Admin Dose 10 MG; Start 03/23/17 at 21:00 Gabapentin (Neurontin) 300 mg AM PO Last administered on 03/24/17 08:22; Admin Dose 300 MG; Start 03/24/17 at 09:00 Gabapentin (Neurontin) 600 mg DAILY PRN PO PM; Start 03/23/17 at 21:00 Lisinopril (Zestril) 20 mg DAILY PO Last administered on 03/24/17 08:22; Admin Dose 20 MG; Start 03/24/17 at 09:00 Trazodone HCl (Desyrel) 50 mg QHS PO Last administered on 03/23/17 23:29; Admin Dose 50 MG; Start 03/23/17 at 21:00 Valacyclovir HCl (Valtrex) 1,000 mg DAILY PO Last administered on 03/24/17 08: 22; Admin Dose 1,000 MG; Start 03/24/17 at 09:00 Atorvastatin Calcium (Lipitor) 20 mg DAILY@21 PO Last administered on 23:29; Admin Dose 20 MG; Start 03/23/17 at 21:29 Sertraline HCl (Zoloft) 50 mg HS PO ; Start 03/24/17 at 21:00 Diagnostic Test (Pha) (Accu-Chek) 1 ea 01 XX ; Start 03/25/17 at 01:00 JOSE SINGH MD Mar 24, 2017 08:53
[2017-03-24 09:06] LABS: ADD SCAN DIFF NO
[2017-03-24 09:08] LABS: BASOPHILS % 0.2 % (0.0-2.0); HEMATOCRIT 35.1 % (42.0-52.0); HEMOGLOBIN 11.8 g/dl (14.0-18.0); LYMPHOCYTES # 0.7 10^3/ul (0.8-2.9); LYMPHOCYTES % 5.9 % (15.0-51.0); MEAN CORPUSCULAR HEMOGLOBIN 31.1 pg (29.0-33.0); MEAN CORPUSCULAR HGB CONC 33.6 g/dl (32.0-37.0); MEAN CORPUSCULAR VOLUME 92.4 fl (82.0-101.0); MEAN PLATELET VOLUME 12.9 fl (7.4-10.4); MONOCYTE # 1.1 10^3/ul (0.3-0.9); MONOCYTES % 8.5 % (0.0-11.0); NEUTROPHIL # 10.5 10^3/ul (1.6-7.5); NEUTROPHILS % 84.9 % (39.0-77.0); PLATELET COUNT 180 10^3/UL (140-415); RED CELL DISTRIBUTION WIDTH 13.3 % (11.5-14.5); WHITE BLOOD COUNT 12.4 10^3/ul (4.8-10.8)
[2017-03-24] MEDS: ONDANSETRON 4 MG INJ IV PRN ×2 (11:58→22:09)
[2017-03-24] MEDS: OXYCODONE/ACETAMINOPHEN (5/325) TAB PO PRN ×2 (14:31→20:25)
--- NOTE | 2017-03-24 14:53 | CONS ---
Date/Time of Note Date/Time of Note DATE: 03/24/17 TIME: 14:52 Assessment/Plan Assessment/Plan Chief Complaint/Hosp Course No acute changes overnight. Patient is awake, looks comfortable he is slightly drowsy, family at bedside Temperature 98.2 pulse 83 respirations 18 blood pressure 1 3301 13/62 saturation 95% on room air WBC 12.4 H&H 11.8 and 35.1 platelets 180 neutrophils 89.5 no bands BN 10 creatinine 1.08 Antimicrobials: Vancomycin, Zosyn Microbiology: Wound cultures growing staph aureus preliminary Physical examination: Obese well-developed middle-aged white man who is alert in no distress. Head atraumatic normocephalic sclera nonicteric. Neck is supple, trachea midline. Chest rise symmetrical breath sounds diminished to bases. Heart: S1-S2. Abdomen soft, bowel tones present. Extremities without cyanosis. Assessment: 1. Systemic inflammatory response syndrome secondary to postoperative wound infection 2. Status post L5-S1 decompression on January 30, 2017 3. Status post CSF leak repair on March 09 and I&D of lumbar wound on March 23, 2017 4. Diabetes Plan: Clinically stable, pending final cultures, continue antibiotics, will likely DC Zosyn, follow Ortho recommendations Discussed with patient and family at bedside Problems: Consultation Date/Type/Reason Admit Date/Time Mar 23, 2017 at 22:35 Initial Consult Date Type of Consultation: ID Exam/Review of Systems Vital Signs Vitals Vital Signs Date Time Temp Pulse Resp B/P Pulse Ox O2 Delivery O2 Flow Rate FiO2 03/24/17 12:00 87 03/24/17 11:20 98.2 18 113/62 93 03/23/17 22:25 Room Air Intake and Output 03/23/17 03/23/17 03/24/17 15:00 23:00 07:00 Intake Total 1200 ml 120 ml Output Total 230 ml 380 ml Balance 970 ml -260 ml Results Result Diagram: 03/24/17 0625 03/24/17 0625 Results 24 hrs Laboratory Tests Test 03/23/17 18:42 03/23/17 20:17 03/23/17 21:10 03/24/17 01:45 Bedside Glucose 146 173 242 H Lactic Acid Level 1.0 Test 03/24/17 06:25 03/24/17 07:39 White Blood Count 12.4 #H Red Blood Count 3.80 #L Hemoglobin 11.8 L Hematocrit 35.1 L Mean Corpuscular Volume 92.4 Mean Corpuscular Hemoglobin 31.1 Mean Corpuscular Hemoglobin Concent 33.6 Red Cell Distribution Width 13.3 Platelet Count 180 Mean Platelet Volume 12.9 H Neutrophils % 84.9 H Lymphocytes % 5.9 L Monocytes % 8.5 Eosinophils % 0.0 Basophils % 0.2 Nucleated Red Blood Cells % 0.0 Neutrophils # 10.5 H Lymphocytes # 0.7 L Monocytes # 1.1 H Eosinophils # 0.0 Basophils # 0.0 Nucleated Red Blood Cells # 0.0 Sodium Level 135 Potassium Level 4.4 Chloride Level 102 Carbon Dioxide Level 26 Anion Gap 11 Blood Urea Nitrogen 10 Creatinine 1.08 Glucose Level 217 Calcium Level 9.1 Bedside Glucose 210 Medications Medications Current Medications Zolpidem Tartrate (Ambien) 10 mg HS PRN PO INSOMNIA Last administered on 00:09; Admin Dose 10 MG; Start 03/23/17 at 19:00 Prochlorperazine (Compazine) 10 mg Q4H PRN PO NAUSEA AND/OR VOMITING; Start at 19:00 Ondansetron HCl (Zofran Inj) 4 mg Q6H PRN IV NAUSEA AND/OR VOMITING Last administered on 03/24/17 11:58; Admin Dose 4 MG; Start 03/23/17 at 19:00 Al Hydrox/Mg Hydrox/Simethicone (Mag-Al Plus) 15 ml Q4H PRN PO CONSTIPATION; Start 03/23/17 at 19:00 Docusate Sodium (Colace) 100 mg BID PO Last administered on 03/24/17 08:22; Admin Dose 100 MG; Start 03/24/17 at 09:00 Acetaminophen (Tylenol Tab) 650 mg Q4H PRN PO TEMP GREATER THAN 101F OR GUTIERREZ; Start 03/23/17 at 19:00 Naloxone HCl 0.2 mg 0.2 mg Q2M PRN IV RR 8 BREATHS/MIN OR LESS; Start 03/23/17 at 19:00 Piperacillin Sod/ Tazobactam Sod 100 ml @ 200 mls/hr Q8 IVPB Last administered on 03/24/17 14:21; Admin Dose 200 MLS/HR; Start 03/23/17 at 21:00 Vancomycin HCl 1.25 gm/Sodium Chloride 250 ml @ 83.333 mls/ hr Q12H IVPB Last administered on 03/24/17 08:40; Admin Dose 83.333 MLS/HR; Start 03/23/17 at 20: 30 Sodium Chloride (NS) 1,000 ml @ 100 mls/hr Q10H IV Last administered on 21:43; Admin Dose 100 MLS/HR; Start 03/23/17 at 21:00 Alprazolam (Xanax) 1 mg Q8H PRN PO ANXIETY Last administered on 03/24/17 00:09 ; Admin Dose 1 MG; Start 03/23/17 at 21:00 Bupropion HCl (Wellbutrin Xl) 300 mg DAILY PO Last administered on 03/24/17 08 :23; Admin Dose 300 MG; Start 03/24/17 at 09:00 Cyclobenzaprine HCl (Flexeril) 10 mg TID PO Last administered on 03/24/17 08: 22; Admin Dose 10 MG; Start 03/23/17 at 21:00 Gabapentin (Neurontin) 300 mg AM PO Last administered on 03/24/17 08:22; Admin Dose 300 MG; Start 03/24/17 at 09:00 Gabapentin (Neurontin) 600 mg DAILY PRN PO PM; Start 03/23/17 at 21:00 Lisinopril (Zestril) 20 mg DAILY PO Last administered on 03/24/17 08:22; Admin Dose 20 MG; Start 03/24/17 at 09:00 Trazodone HCl (Desyrel) 50 mg QHS PO Last administered on 03/23/17 23:29; Admin Dose 50 MG; Start 03/23/17 at 21:00 Valacyclovir HCl (Valtrex) 1,000 mg DAILY PO Last administered on 03/24/17 08: 22; Admin Dose 1,000 MG; Start 03/24/17 at 09:00 Atorvastatin Calcium (Lipitor) 20 mg DAILY@21 PO Last administered on 23:29; Admin Dose 20 MG; Start 03/23/17 at 21:29 Sertraline HCl (Zoloft) 50 mg HS PO ; Start 03/24/17 at 21:00 Diagnostic Test (Pha) (Accu-Chek) 1 ea 01 XX ; Start 03/25/17 at 01:00 Oxycodone/ Acetaminophen (Percocet (5/ 325)) 1 tab Q4H PRN PO PAIN; Start 03/24 at 09:30 Oxycodone/ Acetaminophen (Percocet (5/ 325)) 2 tab Q4H PRN PO Severe pain 7-10 Last administered on 03/24/17t 14:31; Admin Dose 2 TAB; Start 03/24/17 at 09:30 Miscellaneous Information (*Rx Drug Level Order Reminder*) VANCOMYCIN TROUGH ON @ 1,930 ONCE ONCE XX ; Start 03/24/17 at 19:30; Stop 03/24/17 at 19:31 CARMELA JIMENEZ NP Mar 24, 2017 14:53
--- NOTE | 2017-03-24 17:55 | CONS ---
Date/Time of Note Date/Time of Note DATE: 03/24/17 TIME: 17:42 Assessment/Plan Assessment/Plan Problems: (1) Pseudomeningocele, acquired Status: Acute Comment: Postoperative. He has been seen in ID consultation and surgical consultation and is now had every current surgery to clean up a possible infection (2) Moderate late onset dysthymic disorder, in partial remission, with anxious distress, with intermittent major depressive episodes, with current episode Status: Chronic Comment: Patient is extremely anxious about this turn of events. I will do what I can but his anxiety treatment from before was somewhat light. Will adjust his medication (3) Hypothyroidism Status: Chronic Comment: Continue on levothyroxine replacement therapy Qualifiers: Qualified Code: E03.9 - Acquired hypothyroidism (4) Asthma, moderate persistent Status: Chronic Comment: Stable and quiescent Qualifiers: Qualified Code: J45.40 - Moderate persistent asthma without complication (5) Hyperlipidemia Status: Chronic Comment: Continue statin therapy Qualifiers: Qualified Code: E78.00 - Pure hypercholesterolemia (6) Essential hypertension Status: Chronic Comment: Adequate control (7) Diabetes mellitus type 1 Status: Chronic Comment: Continue on insulin pump therapy Qualifiers: Qualified Code: E10.9 - Type 1 diabetes mellitus without complication Consultation Date/Type/Reason Admit Date/Time Mar 23, 2017 at 22:35 Date of Consultation: Mar 23, 2017 Type of Consultation: Internal medicine and endocrin Reason for Consultation 36-year-old right-handed single male with long-term diabetes mellitus since 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; Constitutional: no complaints (Patient reports the recent onset of some fevers) Eyes: no complaints ENT: no complaints Respiratory: no complaints Cardiovascular: no complaints Gastrointestinal: no complaints Past Medical History Diabetes mellitus type 1; severe anxiety disorder with dysthymia; lumbar disc disease status post lumbar discectomy complicated by dural leak; pseudomeningocele; Medical History: hypertension, hypothyroid Past Surgical History Status post lumbar laminectomy; status post repair of dura for pseudomeningocele Family History Significant Family History: no pertinent family hx Social History Patient has been under the care of Dr. Jasiel Silva. The patient reports that his insurance is just changed a few days ago to [employer]. He may need additional resources Alcohol Use: rarely Smoking Status: Current some day smoker Drug Use: none Exam/Review of Systems Vital Signs Vitals Vital Signs Date Time Temp Pulse Resp B/P Pulse Ox O2 Delivery O2 Flow Rate FiO2 7/14/17 16:00 111 03/24/17 15:34 98.5 20 130/53 93 03/23/17 22:25 Room Air Intake and Output 03/23/17 03/23/17 03/24/17 15:00 23:00 07:00 Intake Total 1200 ml 120 ml Output Total 230 ml 380 ml Balance 970 ml -260 ml Exam Constitutional: alert, oriented Neck: non-tender, supple Respiratory: clear to auscultation, normal air movement Cardiovascular: nl pulses, regular rate and rhythm Gastrointestinal: nl liver, spleen, non-tender, soft Results Result Diagram: 03/24/17 0625 03/24/17 0625 Results 24 hrs Laboratory Tests Test 03/23/17 18:42 03/23/17 20:17 03/23/17 21:10 03/24/17 01:45 Bedside Glucose 146 173 242 H Lactic Acid Level 1.0 Test 03/24/17 06:25 03/24/17 07:39 03/24/17 16:47 White Blood Count 12.4 #H Red Blood Count 3.80 #L Hemoglobin 11.8 L Hematocrit 35.1 L Mean Corpuscular Volume 92.4 Mean Corpuscular Hemoglobin 31.1 Mean Corpuscular Hemoglobin Concent 33.6 Red Cell Distribution Width 13.3 Platelet Count 180 Mean Platelet Volume 12.9 H Neutrophils % 84.9 H Lymphocytes % 5.9 L Monocytes % 8.5 Eosinophils % 0.0 Basophils % 0.2 Nucleated Red Blood Cells % 0.0 Neutrophils # 10.5 H Lymphocytes # 0.7 L Monocytes # 1.1 H Eosinophils # 0.0 Basophils # 0.0 Nucleated Red Blood Cells # 0.0 Sodium Level 135 Potassium Level 4.4 Chloride Level 102 Carbon Dioxide Level 26 Anion Gap 11 Blood Urea Nitrogen 10 Creatinine 1.08 Glucose Level 217 Calcium Level 9.1 Bedside Glucose 210 154 Medications Medications Current Medications Zolpidem Tartrate (Ambien) 10 mg HS PRN PO INSOMNIA Last administered on t 00:09; Admin Dose 10 MG; Start 03/23/17 at 19:00 Prochlorperazine (Compazine) 10 mg Q4H PRN PO NAUSEA AND/OR VOMITING; Start at 19:00 Ondansetron HCl (Zofran Inj) 4 mg Q6H PRN IV NAUSEA AND/OR VOMITING Last administered on 03/24/17 11:58; Admin Dose 4 MG; Start 03/23/17 at 19:00 Al Hydrox/Mg Hydrox/Simethicone (Mag-Al Plus) 15 ml Q4H PRN PO CONSTIPATION; Start 03/23/17 at 19:00 Docusate Sodium (Colace) 100 mg BID PO Last administered on 03/24/17 08:22; Admin Dose 100 MG; Start 03/24/17 at 09:00 Acetaminophen (Tylenol Tab) 650 mg Q4H PRN PO TEMP GREATER THAN 101F OR GUTIERREZ; Start 03/23/17 at 19:00 Naloxone HCl 0.2 mg 0.2 mg Q2M PRN IV RR 8 BREATHS/MIN OR LESS; Start 03/23/17 at 19:00 Piperacillin Sod/ Tazobactam Sod 100 ml @ 200 mls/hr Q8 IVPB Last administered on 03/24/17 14:21; Admin Dose 200 MLS/HR; Start 03/23/17 at 21:00 Vancomycin HCl 1.25 gm/Sodium Chloride 250 ml @ 83.333 mls/ hr Q12H IVPB Last administered on 03/24/17 08:40; Admin Dose 83.333 MLS/HR; Start 03/23/17 at 20: 30 Sodium Chloride (NS) 1,000 ml @ 100 mls/hr Q10H IV Last administered on 21:43; Admin Dose 100 MLS/HR; Start 03/23/17 at 21:00 Alprazolam (Xanax) 1 mg Q8H PRN PO ANXIETY Last administered on 03/24/17 00:09 ; Admin Dose 1 MG; Start 03/23/17 at 21:00 Bupropion HCl (Wellbutrin Xl) 300 mg DAILY PO Last administered on 03/24/17 08 :23; Admin Dose 300 MG; Start 03/24/17 at 09:00 Cyclobenzaprine HCl (Flexeril) 10 mg TID PO Last administered on 03/24/17 08: 22; Admin Dose 10 MG; Start 03/23/17 at 21:00 Gabapentin (Neurontin) 300 mg AM PO Last administered on 03/24/17 08:22; Admin Dose 300 MG; Start 03/24/17 at 09:00 Gabapentin (Neurontin) 600 mg DAILY PRN PO PM; Start 03/23/17 at 21:00 Lisinopril (Zestril) 20 mg DAILY PO Last administered on 03/24/17 08:22; Admin Dose 20 MG; Start 03/24/17 at 09:00 Trazodone HCl (Desyrel) 50 mg QHS PO Last administered on 03/23/17 23:29; Admin Dose 50 MG; Start 03/23/17 at 21:00 Valacyclovir HCl (Valtrex) 1,000 mg DAILY PO Last administered on 03/24/17 08: 22; Admin Dose 1,000 MG; Start 03/24/17 at 09:00 Atorvastatin Calcium (Lipitor) 20 mg DAILY@21 PO Last administered on 23:29; Admin Dose 20 MG; Start 03/23/17 at 21:29 Sertraline HCl (Zoloft) 50 mg HS PO ; Start 03/24/17 at 21:00 Diagnostic Test (Pha) (Accu-Chek) 1 ea 01 XX ; Start 03/25/17 at 01:00 Oxycodone/ Acetaminophen (Percocet (5/ 325)) 1 tab Q4H PRN PO PAIN; Start 03/24 at 09:30 Oxycodone/ Acetaminophen (Percocet (5/ 325)) 2 tab Q4H PRN PO Severe pain 7-10 Last administered on 03/24/17 14:31; Admin Dose 2 TAB; Start 03/24/17 at 09:30 Miscellaneous Information (*Rx Drug Level Order Reminder*) VANCOMYCIN TROUGH ON @ 1,930 ONCE ONCE XX ; Start 03/24/17 at 19:30; Stop 03/24/17 at 19:31 DANA SANTOS MD Mar 24, 2017 17:52
[2017-03-24] MEDS: ATORVASTATIN 20 MG TAB PO SCH (20:24)
[2017-03-24] MEDS: traZODone 50 MG TAB PO SCH (20:25)
[2017-03-24] MEDS: SERTRALINE 50 MG TAB PO SCH (20:25)
[2017-03-25] VITALS (12 sets, daily range): BP systolic 99–120; BP diastolic 56–77; PULSE 68–97; RESP 17–20
[2017-03-25] MEDS ORDERED: ACCU-CHEK XX SCH (01:00)
[2017-03-25] MEDS: [UNRECOGNIZED DRUG - REMARK] XX SCH (01:11)
[2017-03-25] MEDS: OXYCODONE/ACETAMINOPHEN (5/325) TAB PO PRN ×2 (02:25→13:24)
[2017-03-25] MEDS: SOD CHLORIDE 0.9% 1,000 ML IV SCH ×3 (03:00→20:35)
[2017-03-25] MEDS: PIPER-TAZO 3.375 GM IV (PMX) 100 ML IVPB SCH (06:32)
[2017-03-25] MEDS: LEVOTHYROXINE 175 MCG TAB PO SCH (06:34)
[2017-03-25] MEDS: INSULIN PUMP SC SCH ×4 (07:25→20:36)
[2017-03-25] MEDS ORDERED: LIDOCAINE 1% (MPF) 5 ML VIAL SC ONE ×2 (07:30→11:00)
--- NOTE | 2017-03-25 07:33 | CONS ---
Date/Time of Note Date/Time of Note DATE: 03/25/17 TIME: 07:30 Assessment/Plan Assessment/Plan Problems: (1) Post op infection Status: Acute Comment: Preliminary cultures for staph aureus sensitivities pending at this time. He will need a PICC line placed so that he can then receive home IV antibiotic therapy. (2) Diabetes mellitus type 1 Status: Chronic Comment: Good control blood sugars on an insulin pump protocol Qualifiers: Diabetes mellitus complication status: without complication Qualified Code : E10.9 - Type 1 diabetes mellitus without complication (3) Essential hypertension Status: Chronic Comment: I have adequately controlled on current medication regimen (4) Hyperlipidemia Status: Chronic Comment: On statin therapy and stable Qualifiers: Hyperlipidemia type: pure hypercholesterolemia Qualified Code: E78.00 - Pure hypercholesterolemia (5) Asthma, moderate persistent Status: Chronic Comment: Quiescent and controlled Qualifiers: Asthma complication type: uncomplicated Qualified Code: J45.40 - Moderate persistent asthma without complication (6) Hypothyroidism Status: Chronic Comment: Stable on replacement therapy Qualifiers: Hypothyroidism type: acquired Qualified Code: E03.9 - Acquired hypothyroidism (7) Moderate late onset dysthymic disorder, in partial remission, with anxious distress, with intermittent major depressive episodes, with current episode Status: Chronic Comment: I have added an SSRI to his regimen which is actually seems to be working. He can slowly be backed off on the high-dose benzodiazepines he had been taking over time. Consultation Date/Type/Reason Admit Date/Time Mar 23, 2017 at 22:35 Initial Consult Date 03/23/17 Type of Consultation: Internal medicine and endocrin Reason for Consultation Long-term diabetes mellitus type 1; postop wound infection Referring Provider: JOSE SINGH MD 24 HR Interval Summary Free Text/Dictation male sleeping in bed easily awakened Constitutional: no complaints (Denies fevers chills or sweats) Detailed Summary Respiratory: no complaints Cardiovascular: no complaints Gastrointestinal: no complaints Genitourinary: no complaints Musculoskeletal: back pain Neurologic: no complaints Exam/Review of Systems Vital Signs Vitals Vital Signs Date Time Temp Pulse Resp B/P Pulse Ox O2 Delivery O2 Flow Rate FiO2 03/25/17 07:19 98.8 70 18 99/56 99 03/23/17 22:25 Room Air Intake and Output 03/24/17 03/24/17 03/25/17 15:00 23:00 07:00 Intake Total 350 ml 600 ml 1350 ml Output Total 10 ml 25 ml Balance 350 ml 590 ml 1325 ml Exam Constitutional: alert, oriented Neck: non-tender, supple Respiratory: clear to auscultation, normal air movement Cardiovascular: nl pulses, regular rate and rhythm Gastrointestinal: nl liver, spleen, non-tender, soft Neurological: nl mental status, nl strength, other (Normal reflux) Results Result Diagram: 03/24/17 0625 03/24/17 0625 Results 24 hrs Laboratory Tests Test 03/24/17 07:39 03/24/17 16:47 03/24/17 19:25 03/24/17 21:07 Bedside Glucose 210 154 153 Vancomycin Level Trough 13.1 Test 03/25/17 01:09 Bedside Glucose 163 Medications Medications Current Medications Zolpidem Tartrate (Ambien) 10 mg HS PRN PO INSOMNIA Last administered on 22:09; Admin Dose 10 MG; Start 03/23/17 at 19:00 Prochlorperazine (Compazine) 10 mg Q4H PRN PO NAUSEA AND/OR VOMITING; Start at 19:00 Ondansetron HCl (Zofran Inj) 4 mg Q6H PRN IV NAUSEA AND/OR VOMITING Last administered on 03/24/17 22:09; Admin Dose 4 MG; Start 03/23/17 at 19:00 Al Hydrox/Mg Hydrox/Simethicone (Mag-Al Plus) 15 ml Q4H PRN PO CONSTIPATION; Start 03/23/17 at 19:00 Docusate Sodium (Colace) 100 mg BID PO Last administered on 03/24/17 20:23; Admin Dose 100 MG; Start 03/24/17 at 09:00 Acetaminophen (Tylenol Tab) 650 mg Q4H PRN PO TEMP GREATER THAN 101F OR GUTIERREZ; Start 03/23/17 at 19:00 Naloxone HCl 0.2 mg 0.2 mg Q2M PRN IV RR 8 BREATHS/MIN OR LESS; Start 03/23/17 at 19:00 Piperacillin Sod/ Tazobactam Sod 100 ml @ 200 mls/hr Q8 IVPB Last administered on 03/25/17 06:32; Admin Dose 200 MLS/HR; Start 03/23/17 at 21:00 Vancomycin HCl 1.25 gm/Sodium Chloride 250 ml @ 83.333 mls/ hr Q12H IVPB Last administered on 03/24/17 21:11; Admin Dose 83.333 MLS/HR; Start 03/23/17 at 20: 30 Sodium Chloride (NS) 1,000 ml @ 100 mls/hr Q10H IV Last administered on 03:00; Admin Dose 100 MLS/HR; Start 03/23/17 at 21:00 Alprazolam (Xanax) 1 mg Q8H PRN PO ANXIETY Last administered on 03/24/17 22:10 ; Admin Dose 1 MG; Start 03/23/17 at 21:00 Bupropion HCl (Wellbutrin Xl) 300 mg DAILY PO Last administered on 03/24/17 08 :23; Admin Dose 300 MG; Start 03/24/17 at 09:00 Cyclobenzaprine HCl (Flexeril) 10 mg TID PO Last administered on 03/24/17 20: 25; Admin Dose 10 MG; Start 03/23/17 at 21:00 Gabapentin (Neurontin) 300 mg AM PO Last administered on 03/24/17 08:22; Admin Dose 300 MG; Start 03/24/17 at 09:00 Gabapentin (Neurontin) 600 mg DAILY PRN PO PM; Start 03/23/17 at 21:00 Lisinopril (Zestril) 20 mg DAILY PO Last administered on 03/24/17 08:22; Admin Dose 20 MG; Start 03/24/17 at 09:00 Trazodone HCl (Desyrel) 50 mg QHS PO Last administered on 03/24/17 20:25; Admin Dose 50 MG; Start 03/23/17 at 21:00 Valacyclovir HCl (Valtrex) 1,000 mg DAILY PO Last administered on 03/24/17 08: 22; Admin Dose 1,000 MG; Start 03/24/17 at 09:00 Atorvastatin Calcium (Lipitor) 20 mg DAILY@21 PO Last administered on 20:24; Admin Dose 20 MG; Start 03/23/17 at 21:29 Sertraline HCl (Zoloft) 50 mg HS PO Last administered on 03/24/17 20:25; Admin Dose 50 MG; Start 03/24/17 at 21:00 Diagnostic Test (Pha) (Accu-Chek) 1 ea 01 XX Last administered on 03/25/17 01: 11; Admin Dose 1 EA; Start 03/25/17 at 01:00 Oxycodone/ Acetaminophen (Percocet (5/ 325)) 1 tab Q4H PRN PO PAIN; Start 03/24 at 09:30 Oxycodone/ Acetaminophen (Percocet (5/ 325)) 2 tab Q4H PRN PO Severe pain 7-10 Last administered on 03/25/17 02:25; Admin Dose 2 TAB; Start 03/24/17 at 09:30 DANA SANTOS MD Mar 25, 2017 07:33
[2017-03-25] MEDS: LISINOPRIL 20 MG TAB PO SCH (09:00)
[2017-03-25] MEDS: GABAPENTIN 300 MG CAP PO SCH ×2 (09:00→21:46)
[2017-03-25] MEDS: VANCOMYCIN 1.25 GM in SOD CHLORIDE 0.9% 250 ML IVPB SCH ×2 (09:19→20:35)
--- NOTE | 2017-03-25 09:19 | CONS ---
Date/Time of Note Date/Time of Note DATE: 03/25/17 TIME: 09:12 Consultation Date/Type/Reason Admit Date/Time Mar 23, 2017 at 22:35 Type of Consultation: Ortho Spine Referring Provider: JOSE SINGH MD 24 HR Interval Summary Free Text/Dictation S: 36 yo Male POD#2 s/p I&D of lumbar wound infection. Patient did well over night. He had no cute events. His morphine [employer] was D/C yesterday and his pain is well controlled with PO percocet. Patient has been afebrile and has had reduction in his WBC. He denies any headaches. He has been up and walking. He reports significant improvement in back pain. He is currently on empiric coverage with Vancomycin and Zosyn. His blood cx has been negative. His wound cx is growing Staph Aureus and sensitivities are pending. He is currently on Vanc and Zosyn. ID and Medicine are following. O: Tmax 98.8 BP: 118/69, Drain output:25 cc in 12 hrs Gen: AAOx3, NAD Spine: 5/5 strength in b/l KE/TA/GS/EHL, +SILT L3-S1, dressing C/D/I, drain in place Lumbar wound Cx: 3+ Stap Aureus, WBC: 12.4 (03/24) WBC 17 (03/23) A/P: 36 yo Male POD#2 s/p I&D of lumbar wound infection (Staph Aureus). 1. Follow-up wound cultures and sensitivities 2. Abx as per ID 3. PICC line placement and Case management consult to arrange home health 4. WBAT and up with PT 5. f/u am labs 6. appreciate internal medicine recs Exam/Review of Systems Vital Signs Vitals Vital Signs Date Time Temp Pulse Resp B/P Pulse Ox O2 Delivery O2 Flow Rate FiO2 03/25/17 08:10 68 03/25/17 07:19 98.8 18 99/56 99 03/23/17 22:25 Room Air Intake and Output 03/24/17 03/24/17 03/25/17 15:00 23:00 07:00 Intake Total 350 ml 600 ml 1350 ml Output Total 10 ml 25 ml Balance 350 ml 590 ml 1325 ml Results Result Diagram: 03/24/17 0625 03/24/17 0625 Results 24 hrs Laboratory Tests Test 03/24/17 16:47 03/24/17 19:25 03/24/17 21:07 03/25/17 01:09 Bedside Glucose 154 153 163 Vancomycin Level Trough 13.1 Test 03/25/17 08:06 Bedside Glucose 103 Medications Medications Current Medications Zolpidem Tartrate (Ambien) 10 mg HS PRN PO INSOMNIA Last administered on 22:09; Admin Dose 10 MG; Start 03/23/17 at 19:00 Prochlorperazine (Compazine) 10 mg Q4H PRN PO NAUSEA AND/OR VOMITING; Start at 19:00 Ondansetron HCl (Zofran Inj) 4 mg Q6H PRN IV NAUSEA AND/OR VOMITING Last administered on 03/24/17 22:09; Admin Dose 4 MG; Start 03/23/17 at 19:00 Al Hydrox/Mg Hydrox/Simethicone (Mag-Al Plus) 15 ml Q4H PRN PO CONSTIPATION; Start 03/23/17 at 19:00 Docusate Sodium (Colace) 100 mg BID PO Last administered on 03/24/17 20:23; Admin Dose 100 MG; Start 03/24/17 at 09:00 Acetaminophen (Tylenol Tab) 650 mg Q4H PRN PO TEMP GREATER THAN 101F OR GUTIERREZ; Start 03/23/17 at 19:00 Naloxone HCl 0.2 mg 0.2 mg Q2M PRN IV RR 8 BREATHS/MIN OR LESS; Start 03/23/17 at 19:00 Piperacillin Sod/ Tazobactam Sod 100 ml @ 200 mls/hr Q8 IVPB Last administered on 03/25/17 06:32; Admin Dose 200 MLS/HR; Start 03/23/17 at 21:00 Vancomycin HCl 1.25 gm/Sodium Chloride 250 ml @ 83.333 mls/ hr Q12H IVPB Last administered on 03/24/17 21:11; Admin Dose 83.333 MLS/HR; Start 03/23/17 at 20: 30 Sodium Chloride (NS) 1,000 ml @ 100 mls/hr Q10H IV Last administered on 03:00; Admin Dose 100 MLS/HR; Start 03/23/17 at 21:00 Alprazolam (Xanax) 1 mg Q8H PRN PO ANXIETY Last administered on 03/24/17 22:10 ; Admin Dose 1 MG; Start 03/23/17 at 21:00 Bupropion HCl (Wellbutrin Xl) 300 mg DAILY PO Last administered on 03/24/17 08 :23; Admin Dose 300 MG; Start 03/24/17 at 09:00 Cyclobenzaprine HCl (Flexeril) 10 mg TID PO Last administered on 03/24/17 20: 25; Admin Dose 10 MG; Start 03/23/17 at 21:00 Gabapentin (Neurontin) 300 mg AM PO Last administered on 03/24/17 08:22; Admin Dose 300 MG; Start 03/24/17 at 09:00 Gabapentin (Neurontin) 600 mg DAILY PRN PO PM; Start 03/23/17 at 21:00 Lisinopril (Zestril) 20 mg DAILY PO Last administered on 03/24/17 08:22; Admin Dose 20 MG; Start 03/24/17 at 09:00 Trazodone HCl (Desyrel) 50 mg QHS PO Last administered on 03/24/17 20:25; Admin Dose 50 MG; Start 03/23/17 at 21:00 Valacyclovir HCl (Valtrex) 1,000 mg DAILY PO Last administered on 03/24/17 08: 22; Admin Dose 1,000 MG; Start 03/24/17 at 09:00 Atorvastatin Calcium (Lipitor) 20 mg DAILY@21 PO Last administered on 20:24; Admin Dose 20 MG; Start 03/23/17 at 21:29 Sertraline HCl (Zoloft) 50 mg HS PO Last administered on 03/24/17 20:25; Admin Dose 50 MG; Start 03/24/17 at 21:00 Diagnostic Test (Pha) (Accu-Chek) 1 ea 01 XX Last administered on 03/25/17 01: 11; Admin Dose 1 EA; Start 03/25/17 at 01:00 Oxycodone/ Acetaminophen (Percocet (5/ 325)) 1 tab Q4H PRN PO PAIN; Start 03/24 at 09:30 Oxycodone/ Acetaminophen (Percocet (5/ 325)) 2 tab Q4H PRN PO Severe pain 7-10 Last administered on 03/25/17t 02:25; Admin Dose 2 TAB; Start 03/24/17 at 09:30 JOSE SINGH MD Mar 25, 2017 09:19
[2017-03-25] MEDS: DOCUSATE SODIUM 100 MG CAP PO SCH ×2 (09:20→20:36)
[2017-03-25] MEDS: CYCLOBENZAPRINE 10 MG TAB PO SCH ×3 (09:20→20:35)
[2017-03-25] MEDS: VALACYCLOVIR 500 MG TAB PO SCH (09:20)
[2017-03-25] MEDS: BUPROPION (XL) 150 MG TAB PO SCH (09:22)
[2017-03-25 11:07] LABS: ADD SCAN DIFF NO
[2017-03-25 11:22] LABS: BASOPHIL # 0.1 10^3/ul (0.0-0.1); BASOPHILS % 0.6 % (0.0-2.0); EOSINOPHILS # 0.1 10^3/ul (0.0-0.5); EOSINOPHILS % 1.8 % (0.0-7.0); HEMATOCRIT 33.8 % (42.0-52.0); HEMOGLOBIN 10.8 g/dl (14.0-18.0); LYMPHOCYTES # 2.5 10^3/ul (0.8-2.9); LYMPHOCYTES % 32.8 % (15.0-51.0); MEAN CORPUSCULAR HEMOGLOBIN 29.8 pg (29.0-33.0); MEAN CORPUSCULAR VOLUME 93.4 fl (82.0-101.0); MONOCYTE # 0.6 10^3/ul (0.3-0.9); MONOCYTES % 7.4 % (0.0-11.0); NEUTROPHIL # 4.4 10^3/ul (1.6-7.5); NEUTROPHILS % 57.1 % (39.0-77.0); PLATELET COUNT 188 10^3/UL (140-415); RED BLOOD COUNT 3.62 10^6/ul (4.70-6.10); RED CELL DISTRIBUTION WIDTH 13.5 % (11.5-14.5); WHITE BLOOD COUNT 7.7 10^3/ul (4.8-10.8)
[2017-03-25 11:34] LABS: CALCIUM 8.9 mg/dl (8.4-10.2); CREATININE 1.03 mg/dl (0.61-1.24); POTASSIUM 3.9 mmol/L (3.5-5.1)
--- NOTE | 2017-03-25 12:39 | RADRPT ---
PROCEDURE: Ultrasound guidance for placement of needle in right upper extremity vein. CLINICAL INDICATION: Venous access. TECHNIQUE: Limited sonography of the right upper extremity was performed. Ultrasound images were recorded and stored in the patient's medical record. COMPARISON: None. FINDINGS: The ultrasound images demonstrate a patent right upper extremity vein. The PICC line was inserted b y the PICC line nurse. IMPRESSION: 1. Ultrasound guidance for a needle placement in a right upper extremity vein. 2. The visualized right upper extremity vein is patent. RPTAT: QQ .Jeff Chowdhury MD, MD Date Time Electronically viewed and signed by .Jeff Chowdhury MD, MD on 03/25/2017 12:38 .R/
[2017-03-25] MEDS ORDERED: IBUPROFEN 400 MG TAB PO PRN (13:30)
[2017-03-25] MEDS ORDERED: ACETAMINOPHEN 325 MG TAB PO PRN (13:30)
[2017-03-25] MEDS: GABAPENTIN 100 MG CAP PO SCH (13:30)
[2017-03-25] MEDS ORDERED: HEPARIN (10 UNITS/ML) 5ML SYG IV ONE (13:30)
--- NOTE | 2017-03-25 14:31 | RADRPT ---
PROCEDURE: XR Chest. CLINICAL INDICATION: Check PICC line position. TECHNIQUE: Single frontal view. COMPARISON: 03/23/2017. FINDINGS: There is a right arm PICC line with the tip coiled in the superior vena cava. The lungs are clear. The heart size is normal. There is no pleural effusion. There is no pneumothorax. IMPRESSION: 1. Right arm PICC line tip coiled in the superior vena cava. 2. Otherwise normal chest radiograph. RPTAT: QQ .Jeff Chowdhury MD, Date Time Electronically viewed and signed by .Jeff Chowdhury MD, on 03/25/2017 14:31 .R/
--- NOTE | 2017-03-25 14:32 | RADRPT ---
PROCEDURE: XR Chest. CLINICAL INDICATION: Check PICC line position. TECHNIQUE: Single frontal view. COMPARISON: Prior study done earlier the same day. FINDINGS: There is a right arm PICC line coiled in the superior vena cava. The lungs are clear. The heart size is normal. There is no pleural effusion. There is no pneumothorax. IMPRESSION: 1. Right arm PICC line coiled in the superior vena cava. 2. Otherwise normal chest radiograph. RPTAT: QQ .Jeff Chowdhury MD, MD Date Time Electronically viewed and signed by .Jeff Chowdhury MD, MD on 03/25/2017 14:31 .R/
--- NOTE | 2017-03-25 14:32 | RADRPT ---
PROCEDURE: XR Chest. CLINICAL INDICATION: Check PICC line position. TECHNIQUE: Single frontal view. COMPARISON: Prior study done earlier the same day. FINDINGS: There is a right arm PICC line with the tip in the cavoatrial junction region.. The lungs are clear . The heart size is normal. There is no pleural effusion. There is no pneumothorax. IMPRESSION: 1. Right arm PICC line tip in satisfactory position. 2. Otherwise normal chest radiograph. RPTAT: QQ .Jeff Chowdhury MD, Date Time Electronically viewed and signed by .Jeff Chowdhury MD, MD on 03/25/2017 14:32 .R/
--- NOTE | 2017-03-25 15:53 | CONS ---
Date/Time of Note Date/Time of Note DATE: 03/25/17 TIME: 15:44 Assessment/Plan Assessment/Plan Chief Complaint/Hosp Course ID PROGRESS NOTE TOTAL ABX DAY # 3 => VANCO IV = ZOSYN 24H INTERVAL SUMMARY * No fevers, VSS, NAD, awake w/eyes open, no new issues, no complaints offered * New RUEXT PICC Line today * MICRO: 03/23 lumbar wound I&D (+)MRSA, (-) AFB smear; ANAEROBIC CULTURE Preliminary No anaerobe isolated at 48 hours PHYSICAL EXAMINATION: GENERAL: VSS, NAD, no fevers HEENT: Unremarkable, NECK: Supple,full ROM CHEST: Equal chest rise bilaterally, without dyspnea on observation HEART: Pulse RRR ABDOMEN: Soft, nontender EXTREMITIES: Warm, DRY SKIN: Warm, dry ID ASSESSMENT: 36 yo M admitted with: 1. SIRS ->Systemic inflammatory response syndrome secondary to postoperative wound infection * Blood Cx (-) 2. Status post L5-S1 decompression on January 30, 2017 3. Status post CSF leak repair on March 09 and I&D of lumbar wound on March 23, 2017 4. Diabetes Type I 5. Psych Dx: Depression 6. Hx of Hypothyroid 7. Hx of HTN ?MRSA Nares INVASIVES: * PICC (03/25/17) ABX ALLERGIES: KNDA CURRENT ABX: DAY # # 3 => VANCO IV = ZOSYN ID RECOMMENDATIONS: 1. He will need PICC line w/8 weeks Vancomycin IV for (+)MRSA infection 2. Watch renal fx on Vanco IV = DMTI 3. DC Zosyn . . Problems: Consultation Date/Type/Reason Admit Date/Time Mar 23, 2017 at 22:35 Initial Consult Date 03/23/17 Type of Consultation: ID Referring Provider: JOSE SINGH MD Exam/Review of Systems Vital Signs Vitals Vital Signs Date Time Temp Pulse Resp B/P Pulse Ox O2 Delivery O2 Flow Rate FiO2 03/25/17 15:21 97.9 86 17 120/77 94 03/23/17 22:25 Room Air Intake and Output 03/24/17 03/24/17 03/25/17 15:00 23:00 07:00 Intake Total 350 ml 600 ml 1350 ml Output Total 10 ml 25 ml Balance 350 ml 590 ml 1325 ml Results Result Diagram: 03/25/17 1040 03/25/17 1040 Results 24 hrs Laboratory Tests Test 03/24/17 16:47 03/24/17 19:25 03/24/17 21:07 03/25/17 01:09 Bedside Glucose 154 153 163 Vancomycin Level Trough 13.1 Test 03/25/17 08:06 03/25/17 10:40 03/25/17 13:11 03/25/17 15:08 Bedside Glucose 103 61 L 64 L White Blood Count 7.7 # Red Blood Count 3.62 L Hemoglobin 10.8 L Hematocrit 33.8 L Mean Corpuscular Volume 93.4 Mean Corpuscular Hemoglobin 29.8 Mean Corpuscular Hemoglobin Concent 32.0 Red Cell Distribution Width 13.5 Platelet Count 188 Mean Platelet Volume 12.0 H Neutrophils % 57.1 Lymphocytes % 32.8 Monocytes % 7.4 Eosinophils % 1.8 Basophils % 0.6 Nucleated Red Blood Cells % 0.0 Neutrophils # 4.4 Lymphocytes # 2.5 Monocytes # 0.6 Eosinophils # 0.1 Basophils # 0.1 Nucleated Red Blood Cells # 0.0 Sodium Level 143 Potassium Level 3.9 Chloride Level 102 Carbon Dioxide Level 29 Anion Gap 16 Blood Urea Nitrogen 9 Creatinine 1.03 Glucose Level 87 # Calcium Level 8.9 Medications Medications Current Medications Zolpidem Tartrate (Ambien) 10 mg HS PRN PO INSOMNIA Last administered on 22:09; Admin Dose 10 MG; Start 03/23/17 at 19:00 Prochlorperazine (Compazine) 10 mg Q4H PRN PO NAUSEA AND/OR VOMITING; Start at 19:00 Ondansetron HCl (Zofran Inj) 4 mg Q6H PRN IV NAUSEA AND/OR VOMITING Last administered on 03/24/17 22:09; Admin Dose 4 MG; Start 03/23/17 at 19:00 Al Hydrox/Mg Hydrox/Simethicone (Mag-Al Plus) 15 ml Q4H PRN PO CONSTIPATION; Start 03/23/17 at 19:00 Docusate Sodium (Colace) 100 mg BID PO Last administered on 03/25/17 09:20; Admin Dose 100 MG; Start 03/24/17 at 09:00 Naloxone HCl 0.2 mg 0.2 mg Q2M PRN IV RR 8 BREATHS/MIN OR LESS; Start 03/23/17 at 19:00 Vancomycin HCl 1.25 gm/Sodium Chloride 250 ml @ 83.333 mls/ hr Q12H IVPB Last administered on 03/25/17 09:19; Admin Dose 83.333 MLS/HR; Start 03/23/17 at 20: 30 Sodium Chloride (NS) 1,000 ml @ 100 mls/hr Q10H IV Last administered on 03:00; Admin Dose 100 MLS/HR; Start 03/23/17 at 21:00 Alprazolam (Xanax) 1 mg Q8H PRN PO ANXIETY Last administered on 03/24/17 22:10 ; Admin Dose 1 MG; Start 03/23/17 at 21:00 Bupropion HCl (Wellbutrin Xl) 300 mg DAILY PO Last administered on 03/25/17 09 :22; Admin Dose 300 MG; Start 03/24/17 at 09:00 Cyclobenzaprine HCl (Flexeril) 10 mg TID PO Last administered on 03/25/17 13: 23; Admin Dose 10 MG; Start 03/23/17 at 21:00 Lisinopril (Zestril) 20 mg DAILY PO Last administered on 03/24/17 08:22; Admin Dose 20 MG; Start 03/24/17 at 09:00 Trazodone HCl (Desyrel) 50 mg QHS PO Last administered on 03/24/17 20:25; Admin Dose 50 MG; Start 03/23/17 at 21:00 Valacyclovir HCl (Valtrex) 1,000 mg DAILY PO Last administered on 03/25/17 09: 20; Admin Dose 1,000 MG; Start 03/24/17 at 09:00 Atorvastatin Calcium (Lipitor) 20 mg DAILY@21 PO Last administered on 20:24; Admin Dose 20 MG; Start 03/23/17 at 21:29 Sertraline HCl (Zoloft) 50 mg HS PO Last administered on 03/24/17 20:25; Admin Dose 50 MG; Start 03/24/17 at 21:00 Diagnostic Test (Pha) (Accu-Chek) 1 ea XX Last administered on 03/25/17 01: 11; Admin Dose 1 EA; Start 03/25/17 at 01:00 Oxycodone/ Acetaminophen (Percocet (5/ 325)) 1 tab Q4H PRN PO PAIN; Start 03/24 at 09:30 Oxycodone/ Acetaminophen (Percocet (5/ 325)) 2 tab Q4H PRN PO Severe pain 7-10 Last administered on 03/25/17 13:24; Admin Dose 2 TAB; Start 03/24/17 at 09:30 Gabapentin (Neurontin) 300 mg HS PO ; Start 03/25/17 at 21:00 Gabapentin (Neurontin) 100 mg DAILY PO Last administered on 03/25/17 13:30; Admin Dose 100 MG; Start 03/25/17 at 13:30 IV Flush (NS 10 ml) 10 ml PRN PRN IV FLUSH LINE; Start 03/25/17 at 13:30 Acetaminophen (Tylenol Tab) 650 mg Q4H PRN PO PAIN LEVEL 1-3; Start 03/25/17 at 13:30 Ibuprofen (Motrin) 400 mg Q6H PRN PO PAIN LEVEL 4-7; Start 03/25/17 at 13:30 KWESI SHUKLA NP Mar 25, 2017 15:53
[2017-03-25] MEDS: RIFAMPIN 300 MG CAP PO SCH (17:53)
[2017-03-25] MEDS: ATORVASTATIN 20 MG TAB PO SCH (20:36)
[2017-03-25] MEDS: traZODone 50 MG TAB PO SCH (20:36)
[2017-03-25] MEDS: SERTRALINE 50 MG TAB PO SCH (20:37)
[2017-03-25] MEDS: ZOLPIDEM 5 MG TAB PO PRN (20:47)
[2017-03-25] MEDS: ALPRAZOLAM 0.5 MG TAB PO PRN (20:47)
[2017-03-26] VITALS (14 sets, daily range): BP systolic 106–133; BP diastolic 58–83; PULSE 60–80; RESP 17–20
[2017-03-26] MEDS: [UNRECOGNIZED DRUG - REMARK] XX SCH (01:00)
[2017-03-26 03:56] LABS: ADD SCAN DIFF NO
[2017-03-26 04:04] LABS: BASOPHIL # 0.1 10^3/ul (0.0-0.1); BASOPHILS % 0.6 % (0.0-2.0); EOSINOPHILS # 0.2 10^3/ul (0.0-0.5); EOSINOPHILS % 2.6 % (0.0-7.0); HEMATOCRIT 33.4 % (42.0-52.0); HEMOGLOBIN 10.8 g/dl (14.0-18.0); LYMPHOCYTES # 2.6 10^3/ul (0.8-2.9); LYMPHOCYTES % 32.4 % (15.0-51.0); MEAN CORPUSCULAR HGB CONC 32.3 g/dl (32.0-37.0); MEAN CORPUSCULAR VOLUME 92.8 fl (82.0-101.0); MEAN PLATELET VOLUME 11.6 fl (7.4-10.4); MONOCYTE # 0.7 10^3/ul (0.3-0.9); MONOCYTES % 8.8 % (0.0-11.0); NEUTROPHIL # 4.4 10^3/ul (1.6-7.5); PLATELET COUNT 215 10^3/UL (140-415); RED CELL DISTRIBUTION WIDTH 13.5 % (11.5-14.5)
[2017-03-26 04:20] LABS: CALCIUM 8.8 mg/dl (8.4-10.2); CREATININE 1.04 mg/dl (0.61-1.24); MAGNESIUM 1.6 mg/dl (1.7-2.5); POTASSIUM 3.6 mmol/L (3.5-5.1)
[2017-03-26 04:31] LABS: TROPONIN-I 0.022 ng/ml (0.00-0.12)
[2017-03-26] MEDS ORDERED: POTASSIUM CHLORIDE (SR) 20 MEQ TAB PO STA (04:56)
[2017-03-26] MEDS ORDERED: MAGNESIUM SULFATE 1 GM/D5W 100 ML IVPB ONE (05:00)
[2017-03-26] MEDS: ALPRAZOLAM 0.5 MG TAB PO PRN (05:38)
[2017-03-26] MEDS: OXYCODONE/ACETAMINOPHEN (5/325) TAB PO PRN ×2 (05:38→21:00)
[2017-03-26] MEDS: LEVOTHYROXINE 175 MCG TAB PO SCH (06:23)
--- NOTE | 2017-03-26 06:40 | EN ---
Date/Time of Note Date/Time of Note DATE: 03/26/17 TIME: : Event Note Medicine Medicine Event Note Was called by the nurse requesting to evaluate the patient as per the request of the attending surgeon/physician. Patient was noted to have nonsustained beats of V. tach. 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 Upon my examination patient was sleeping he was easily arousable. He denied any chest pain. He did state though that he was having some back pain secondary to the inspection of these being treated for. Denied any shortness of breath or palpitations. Vital signs were noted to be stable. Temperature 98 heart rate 76 respiration 17 BP 116/78 satting at 94% room air General: Patient was easily arousable states that he has some back pain secondary to his condition is being treated for but denies any chest pain. HEENT: Atraumatic, normocephalic. The pupils are equal, round and reactive. Extraocular motor are intact Neck: Supple with full range of motion. No rigidity or meningismus Chest: Nontender Lungs: Clear to auscultation bilaterally no crackles rales or wheezing Heart: Normal S1-S2, Regular rhythm and rate. No overt murmurs appreciated. Abdomen: Soft , nontender, nondistended , bowel sounds are present. No guarding no rebound tenderness , No masses or organomegaly. No costovertebral temporal angle mass Extremities: Normal to inspection, no edema no cyanosis Neurologic: Normal mental status, speech normal, cranial nerves II through XII are intact, motor and sensory are intact, no focal weakness Musculoskeletal: Pain in the lumbar region site of the I&D. Telemetry was reviewed patient had nonsustained episodes of V. tach. Currently he is in normal sinus rhythm. Stat BMP mag and TSH ordered. Pertinent laboratory results: Magnesium was 1.6. Potassium was 3.6. TSH 15. EKG was normal sinus rhythm. Assessment and plan: #1 nonsustained V. tach: This likely to be secondary to electrolyte abnormalities as well as possible thyroid abnormality. At the current time we will replete with IV magnesium. We will also give 40 K Meq po. Consider endocrinology consultation for thyroid management. Continue to monitor patient. EKG was normal sinus rhythm. Greater than 35 minutes of care time was provided to the patient. ASHWINI PRADO Mar 26, 2017 06:37
[2017-03-26] MEDS: INSULIN PUMP SC SCH ×4 (07:25→20:21)
[2017-03-26] MEDS: VANCOMYCIN 1.25 GM in SOD CHLORIDE 0.9% 250 ML IVPB SCH ×2 (08:11→20:20)
[2017-03-26] MEDS: SOD CHLORIDE 0.9% 1,000 ML IV SCH ×2 (08:11→20:20)
[2017-03-26] MEDS: DOCUSATE SODIUM 100 MG CAP PO SCH ×2 (08:12→20:22)
[2017-03-26] MEDS: CYCLOBENZAPRINE 10 MG TAB PO SCH (08:13)
[2017-03-26] MEDS: GABAPENTIN 100 MG CAP PO SCH (08:13)
[2017-03-26] MEDS: RIFAMPIN 300 MG CAP PO SCH (08:14)
[2017-03-26] MEDS: VALACYCLOVIR 500 MG TAB PO SCH (08:15)
[2017-03-26] MEDS: BUPROPION (XL) 150 MG TAB PO SCH (08:15)
[2017-03-26] MEDS: LISINOPRIL 20 MG TAB PO SCH (08:16)
[2017-03-26] MEDS ORDERED: GABAPENTIN 300 MG CAP PO SCH (09:00)
--- NOTE | 2017-03-26 10:38 | CONS ---
Date/Time of Note Date/Time of Note DATE: 03/26/17 TIME: 10:28 Consultation Date/Type/Reason Admit Date/Time Mar 23, 2017 at 22:35 Type of Consultation: Ortho Spine Follow-Up Referring Provider: JOSE SINGH MD 24 HR Interval Summary Free Text/Dictation S: 36 yo Male POD#3 s/p I&D of lumbar wound infection. Patient had an episode of non-sustained V-tach last night. He denied and continues to deny any SOB or chest pain. Medicine evaluated the patient in the pm. EKG showed normal sinus rhythm. Troponins were negative. He was found to have low Mag and eleveated TSH. His electrolyte imbalance was corrected. He contiues to be asymptomatic and his HR has been in normal sinus rhythm. His pain is well controlled with PO percocet. Patient has been afebrile and has had reduction in his WBC. He denies any headaches. He has been up and walking. He reports significant improvement in his back pain. He is currently on empiric coverage with Vancomycin. Zosyn has been discontinued. His blood cx has been negative. His wound cx are growing MRSA. A PICC line was placed yesterday. ID and Medicine are following. O: Tmax 98.1 BP: 117/68, HR currently 67-80, Drain output:15 cc in 12 hrs Gen: AAOx3, NAD Spine: 5/5 strength in b/l KE/TA/GS/EHL, +SILT L3-S1, posterior lumbar wound with minimal SS drainage, intact marked improvement in erythema Lumbar wound Cx: 3+ MRSA, WBC: 8.8 (03/26) WBC: 12.4 (03/24) WBC 17 (/) A/P: 36 yo Male POD#3 s/p I&D of lumbar wound infection (+MRSA). 1. MRSA infection- likely will need 2 weeks of IV Abx (Vanco) followed by 2 weeks of Bactrim as per ID recs, PICC line is in place will get case management to help with home health 2. WBAT and up with PT 3. appreciate Medicine recs concerning Diabetes, hyothyroid and epsiode of Vtach (non-sustained) 4. D/C drain Exam/Review of Systems Vital Signs Vitals Vital Signs Date Time Temp Pulse Resp B/P Pulse Ox O2 Delivery O2 Flow Rate FiO2 03/26/17 08:25 67 03/26/17 07:21 97.6 20 106/58 91 03/26/17 02:00 Room Air Intake and Output 03/25/17 03/25/17 03/26/17 15:00 23:00 07:00 Intake Total 1300 ml 2450 ml 1400 ml Output Total 15 ml Balance 1300 ml 2435 ml 1400 ml Results Result Diagram: 03/26/17 0325 03/26/17 0325 Results 24 hrs Laboratory Tests Test 03/25/17 10:40 03/25/17 13:11 03/25/17 15:08 03/25/17 17:00 White Blood Count 7.7 # Red Blood Count 3.62 L Hemoglobin 10.8 L Hematocrit 33.8 L Mean Corpuscular Volume 93.4 Mean Corpuscular Hemoglobin 29.8 Mean Corpuscular Hemoglobin Concent 32.0 Red Cell Distribution Width 13.5 Platelet Count 188 Mean Platelet Volume 12.0 H Neutrophils % 57.1 Lymphocytes % 32.8 Monocytes % 7.4 Eosinophils % 1.8 Basophils % 0.6 Nucleated Red Blood Cells % 0.0 Neutrophils # 4.4 Lymphocytes # 2.5 Monocytes # 0.6 Eosinophils # 0.1 Basophils # 0.1 Nucleated Red Blood Cells # 0.0 Sodium Level 143 Potassium Level 3.9 Chloride Level 102 Carbon Dioxide Level 29 Anion Gap 16 Blood Urea Nitrogen 9 Creatinine 1.03 Glucose Level 87 # Calcium Level 8.9 Bedside Glucose 61 L 64 L 139 Test 03/25/17 20:30 03/26/17 01:08 03/26/17 03:25 03/26/17 08:09 Bedside Glucose 93 80 117 White Blood Count 8.0 Red Blood Count 3.60 L Hemoglobin 10.8 L Hematocrit 33.4 L Mean Corpuscular Volume 92.8 Mean Corpuscular Hemoglobin 30.0 Mean Corpuscular Hemoglobin Concent 32.3 Red Cell Distribution Width 13.5 Platelet Count 215 Mean Platelet Volume 11.6 H Neutrophils % 55.0 Lymphocytes % 32.4 Monocytes % 8.8 Eosinophils % 2.6 Basophils % 0.6 Nucleated Red Blood Cells % 0.0 Neutrophils # 4.4 Lymphocytes # 2.6 Monocytes # 0.7 Eosinophils # 0.2 Basophils # 0.1 Nucleated Red Blood Cells # 0.0 Sodium Level 144 Potassium Level 3.6 Chloride Level 102 Carbon Dioxide Level 31 Anion Gap 15 Blood Urea Nitrogen 6 L Creatinine 1.04 Glucose Level 62 #L Calcium Level 8.8 Magnesium Level 1.6 L Troponin I 0.022 Thyroid Stimulating Hormone (TSH) 15.000 H Medications Medications Current Medications Zolpidem Tartrate (Ambien) 10 mg HS PRN PO INSOMNIA Last administered on 20:47; Admin Dose 10 MG; Start 03/23/17 at 19:00 Prochlorperazine (Compazine) 10 mg Q4H PRN PO NAUSEA AND/OR VOMITING; Start at 19:00 Ondansetron HCl (Zofran Inj) 4 mg Q6H PRN IV NAUSEA AND/OR VOMITING Last administered on 03/24/17 22:09; Admin Dose 4 MG; Start 03/23/17 at 19:00 Al Hydrox/Mg Hydrox/Simethicone (Mag-Al Plus) 15 ml Q4H PRN PO CONSTIPATION; Start 03/23/17 at 19:00 Docusate Sodium (Colace) 100 mg BID PO Last administered on 03/26/17 08:12; Admin Dose 100 MG; Start 03/24/17 at 09:00 Naloxone HCl 0.2 mg 0.2 mg Q2M PRN IV RR 8 BREATHS/MIN OR LESS; Start 03/23/17 at 19:00 Vancomycin HCl 1.25 gm/Sodium Chloride 250 ml @ 83.333 mls/ hr Q12H IVPB Last administered on 03/26/17 08:11; Admin Dose 83.333 MLS/HR; Start 03/23/17 at 20: 30 Sodium Chloride (NS) 1,000 ml @ 100 mls/hr Q10H IV Last administered on 20:35; Admin Dose 100 MLS/HR; Start 03/23/17 at 21:00 Alprazolam (Xanax) 1 mg Q8H PRN PO ANXIETY Last administered on 03/26/17 05:38 ; Admin Dose 1 MG; Start 03/23/17 at 21:00 Bupropion HCl (Wellbutrin Xl) 300 mg DAILY PO Last administered on 03/26/17 08 :15; Admin Dose 300 MG; Start 03/24/17 at 09:00 Cyclobenzaprine HCl (Flexeril) 10 mg TID PO Last administered on 03/26/17 08: 13; Admin Dose 10 MG; Start 03/23/17 at 21:00 Lisinopril (Zestril) 20 mg DAILY PO Last administered on 03/26/17 08:16; Admin Dose 20 MG; Start 03/24/17 at 09:00 Trazodone HCl (Desyrel) 50 mg QHS PO Last administered on 03/25/17 20:36; Admin Dose 50 MG; Start 03/23/17 at 21:00 Valacyclovir HCl (Valtrex) 1,000 mg DAILY PO Last administered on 03/26/17 08: 15; Admin Dose 1,000 MG; Start 03/24/17 at 09:00 Atorvastatin Calcium (Lipitor) 20 mg DAILY@21 PO Last administered on 20:36; Admin Dose 20 MG; Start 03/23/17 at 21:29 Sertraline HCl (Zoloft) 50 mg HS PO Last administered on 03/25/17 20:37; Admin Dose 50 MG; Start 03/24/17 at 21:00 Diagnostic Test (Pha) (Accu-Chek) 1 ea 01 XX Last administered on 03/25/17 01: 11; Admin Dose 1 EA; Start 03/25/17 at 01:00 Oxycodone/ Acetaminophen (Percocet (5/ 325)) 1 tab Q4H PRN PO PAIN; Start 03/24 at 09:30 Oxycodone/ Acetaminophen (Percocet (5/ 325)) 2 tab Q4H PRN PO Severe pain 7-10 Last administered on 03/26/17 05:38; Admin Dose 2 TAB; Start 03/24/17 at 09:30 Gabapentin (Neurontin) 300 mg HS PO Last administered on 03/25/17 21:46; Admin Dose 300 MG; Start 03/25/17 at 21:00 Gabapentin (Neurontin) 100 mg DAILY PO Last administered on 03/26/17 08:13; Admin Dose 100 MG; Start 03/25/17 at 13:30 IV Flush (NS 10 ml) 10 ml PRN PRN IV FLUSH LINE; Start 03/25/17 at 13:30 Acetaminophen (Tylenol Tab) 650 mg Q4H PRN PO PAIN LEVEL 1-3; Start 03/25/17 at 13:30 Ibuprofen (Motrin) 400 mg Q6H PRN PO PAIN LEVEL 4-7; Start 03/25/17 at 13:30 Rifampin (Rifampin) 600 mg DAILY PO Last administered on 03/26/17t 08:14; Admin Dose 600 MG; Start 03/25/17 at 17:20 JOSE SINGH MD Mar 26, 2017 10:38
[2017-03-26] MEDS ORDERED: ALPRAZOLAM 1 MG TAB PO PRN ×2 (11:30→21:00)
--- NOTE | 2017-03-26 11:33 | PN ---
Date/Time of Note Date/Time of Note DATE: 03/26/17 TIME: 11:28 Assessment/Plan VTE Prophylaxis VTE Prophylaxis Intervention: SCD's Lines/Catheters IV [facility]from [facility] PICC Line Central line still needed: Yes Urinary Cath still in place: No Assessment/Plan Problems: (1) Nonsustained ventricular tachycardia Status: Acute Comment: There is no history of cardiac disease in this gentleman. He did have a modestly low magnesium level is not been on any other type of medications that should be irritant to the heart. In addition he is not hyperthyroid. Will check an echocardiogram place him on low-dose extremely cardioselective beta-monisha. (2) Diabetes mellitus type 1 Status: Chronic Comment: Adequate control under the current regimen. Qualifiers: Diabetes mellitus complication status: without complication Qualified Code : E10.9 - Type 1 diabetes mellitus without complication (3) Essential hypertension Status: Chronic Comment: Adequate control. (4) Hyperlipidemia Status: Chronic Comment: Remains on statin therapy without drug complication Qualifiers: Hyperlipidemia type: pure hypercholesterolemia Qualified Code: E78.00 - Pure hypercholesterolemia (5) Asthma, moderate persistent Status: Chronic Comment: This is been relatively well controlled. Will use a low-dose of a cardioselective beta-monisha in the setting Qualifiers: Asthma complication type: uncomplicated Qualified Code: J45.40 - Moderate persistent asthma without complication (6) Hypothyroidism Status: Chronic Comment: The patient very firmly states he has not missed any dosages of levothyroxine in some time. He however has been taking biotin another agents which may have interfered with the absorption. Qualifiers: Hypothyroidism type: acquired Qualified Code: E03.9 - Acquired hypothyroidism (7) Status post lumbar laminectomy Status: Acute Comment: Recuperating slowly. The postop infection has created a bit of an issue and we are trying to work at home antibiotic therapy. The duration of treatment with antibiotics to be determined by ID. There are no yesterday specified 8 weeks but the spinal surgeons on the impression is 2 weeks. Clarification pending (8) Pseudomeningocele, acquired Status: Acute Comment: Postop (9) Sepsis Status: Acute Comment: Clearing with treat Qualifiers: Sepsis type: sepsis due to unspecified organism Qualified Code: A41.9 - Sepsis, due to unspecified organism (10) Post op infection Status: Acute Comment: As per infectious disease to delineate and clarify the duration of treatment their notes versus Dr. Horvath's notes Subjective 24 Hr Interval Summary Free Text/Dictation Patient reports that he is feeling well his pain is under fair control and he wants to go home. Constitutional: no complaints (No fevers chills or sweats) Respiratory: no complaints Cardiovascular: no complaints (No chest pain no palpitations no PND nor orthopnea) Gastrointestinal: no complaints Exam/Review of Systems Vital Signs Vitals Vital Signs Date Time Temp Pulse Resp B/P Pulse Ox O2 Delivery O2 Flow Rate FiO2 03/26/17 08:25 67 03/26/17 07:21 97.6 20 106/58 91 03/26/17 02:00 Room Air Intake and Output 03/25/17 03/25/17 03/26/17 15:00 23:00 07:00 Intake Total 1300 ml 2450 ml 1400 ml Output Total 15 ml Balance 1300 ml 2435 ml 1400 ml Exam Constitutional: alert, oriented Neck: non-tender, supple Respiratory: clear to auscultation, normal air movement Cardiovascular: nl pulses, regular rate and rhythm Results Result Diagram: 03/26/17 0325 03/26/17 0325 Results 24 hrs Laboratory Tests Test 03/25/17 13:11 03/25/17 15:08 03/25/17 17:00 03/25/17 20:30 Bedside Glucose 61 L 64 L 139 93 Test 03/26/17 01:08 03/26/17 03:25 03/26/17 08:09 Bedside Glucose 80 117 White Blood Count 8.0 Red Blood Count 3.60 L Hemoglobin 10.8 L Hematocrit 33.4 L Mean Corpuscular Volume 92.8 Mean Corpuscular Hemoglobin 30.0 Mean Corpuscular Hemoglobin Concent 32.3 Red Cell Distribution Width 13.5 Platelet Count 215 Mean Platelet Volume 11.6 H Neutrophils % 55.0 Lymphocytes % 32.4 Monocytes % 8.8 Eosinophils % 2.6 Basophils % 0.6 Nucleated Red Blood Cells % 0.0 Neutrophils # 4.4 Lymphocytes # 2.6 Monocytes # 0.7 Eosinophils # 0.2 Basophils # 0.1 Nucleated Red Blood Cells # 0.0 Sodium Level 144 Potassium Level 3.6 Chloride Level 102 Carbon Dioxide Level 31 Anion Gap 15 Blood Urea Nitrogen 6 L Creatinine 1.04 Glucose Level 62 #L Calcium Level 8.8 Magnesium Level 1.6 L Troponin I 0.022 Thyroid Stimulating Hormone (TSH) 15.000 H Medications Medications Current Medications Prochlorperazine (Compazine) 10 mg Q4H PRN PO NAUSEA AND/OR VOMITING; Start at 19:00 Ondansetron HCl (Zofran Inj) 4 mg Q6H PRN IV NAUSEA AND/OR VOMITING Last administered on 03/24/17 22:09; Admin Dose 4 MG; Start 03/23/17 at 19:00 Al Hydrox/Mg Hydrox/Simethicone (Mag-Al Plus) 15 ml Q4H PRN PO CONSTIPATION; Start 03/23/17 at 19:00 Docusate Sodium (Colace) 100 mg BID PO Last administered on 03/26/17 08:12; Admin Dose 100 MG; Start 03/24/17 at 09:00 Naloxone HCl 0.2 mg 0.2 mg Q2M PRN IV RR 8 BREATHS/MIN OR LESS; Start 03/23/17 at 19:00 Vancomycin HCl 1.25 gm/Sodium Chloride 250 ml @ 83.333 mls/ hr Q12H IVPB Last administered on 03/26/17 08:11; Admin Dose 83.333 MLS/HR; Start 03/23/17 at 20: 30 Sodium Chloride (NS) 1,000 ml @ 100 mls/hr Q10H IV Last administered on 20:35; Admin Dose 100 MLS/HR; Start 03/23/17 at 21:00 Bupropion HCl (Wellbutrin Xl) 300 mg DAILY PO Last administered on 03/26/17 08 :15; Admin Dose 300 MG; Start 03/24/17 at 09:00 Lisinopril (Zestril) 20 mg DAILY PO Last administered on 03/26/17 08:16; Admin Dose 20 MG; Start 03/24/17 at 09:00 Trazodone HCl (Desyrel) 50 mg QHS PO Last administered on 03/25/17 20:36; Admin Dose 50 MG; Start 03/23/17 at 21:00 Valacyclovir HCl (Valtrex) 1,000 mg DAILY PO Last administered on 03/26/17 08: 15; Admin Dose 1,000 MG; Start 03/24/17 at 09:00 Atorvastatin Calcium (Lipitor) 20 mg DAILY@21 PO Last administered on 20:36; Admin Dose 20 MG; Start 03/23/17 at 21:29 Sertraline HCl (Zoloft) 50 mg HS PO Last administered on 03/25/17 20:37; Admin Dose 50 MG; Start 03/24/17 at 21:00 Diagnostic Test (Pha) (Accu-Chek) 1 ea 01 XX Last administered on 03/25/17 01: 11; Admin Dose 1 EA; Start 03/25/17 at 01:00 Oxycodone/ Acetaminophen (Percocet (5/ 325)) 1 tab Q4H PRN PO PAIN; Start 03/24 at 09:30 Oxycodone/ Acetaminophen (Percocet (5/ 325)) 2 tab Q4H PRN PO Severe pain 7- Last administered on 03/26/17 05:38; Admin Dose 2 TAB; Start 03/24/17 at 09:30 Gabapentin (Neurontin) 300 mg HS PO Last administered on 03/25/17 21:46; Admin Dose 300 MG; Start 03/25/17 at 21:00 Gabapentin (Neurontin) 100 mg DAILY PO Last administered on 03/26/17 08:13; Admin Dose 100 MG; Start 03/25/17 at 13:30 IV Flush (NS 10 ml) 10 ml PRN PRN IV FLUSH LINE; Start 03/25/17 at 13:30 Acetaminophen (Tylenol Tab) 650 mg Q4H PRN PO PAIN LEVEL 1-3; Start 03/25/17 at 13:30 Rifampin (Rifampin) 600 mg DAILY PO Last administered on 03/26/17 08:14; Admin Dose 600 MG; Start 03/25/17 at 17:20 Alprazolam (Xanax) 1 mg HS PRN PO INSOMNIA; Start 03/26/17 at 21:00 Alprazolam (Xanax) 2 mg HS PRN PO INSOMNIA; Start 03/26/17 at 11:30 Alprazolam (Xanax) 3 mg HS PRN PO INSOMNIA; Start 03/26/17 at 11:30 DANA SANTOS MD Mar 26, 2017 11:32
[2017-03-26] MEDS: METOPROLOL (XL) 50 MG TAB PO SCH (12:15)
[2017-03-26 12:40] LABS: CALCIUM 8.3 mg/dl (8.4-10.2); CREATININE 0.87 mg/dl (0.61-1.24); MAGNESIUM 1.7 mg/dl (1.7-2.5); POTASSIUM 3.9 mmol/L (3.5-5.1)
--- NOTE | 2017-03-26 14:14 | CONS ---
Date/Time of Note Date/Time of Note DATE: 03/26/17 TIME: 14:10 Assessment/Plan Assessment/Plan Chief Complaint/Hosp Course Assessment/Plan Chief Complaint/Hosp Course ID PROGRESS NOTE TOTAL ABX DAY # 3 => VANCO IV = ZOSYN 24H INTERVAL SUMMARY 1. No Fevers. Denies Pain. No Acute Distress. 2. MICRO: 03/23 lumbar wound I&D (+)MRSA, (-) AFB smear; ANAEROBIC CULTURE Preliminary No anaerobe isolated at 48 hours PHYSICAL EXAMINATION: GENERAL: VSS, NAD, no fevers HEENT: Unremarkable, NECK: Supple,full ROM CHEST: Equal chest rise bilaterally, without dyspnea on observation HEART: Pulse RRR ABDOMEN: Soft, nontender EXTREMITIES: Warm, DRY SKIN: Warm, dry ID ASSESSMENT: 36 yo M admitted with: 1. SIRS ->Systemic inflammatory response syndrome secondary to postoperative wound infection * Blood Cx (-) 2. Status post L5-S1 decompression on January 30, 2017 3. Status post CSF leak repair on March 09 and I&D of lumbar wound on March 23, 2017 4. Diabetes Type I 5. Psych Dx: Depression 6. Hx of Hypothyroid 7. Hx of HTN ?MRSA Nares INVASIVES: * PICC (03/25/17) ABX ALLERGIES: KNDA CURRENT ABX: DAY # # 3 => VANCO IV = ZOSYN ID RECOMMENDATIONS: 1. He will need PICC line w/8 weeks Vancomycin IV for (+)MRSA infection 2. Monitor Renal Function Tests on Vanco IV = DMTI 3. DC Zosyn 4. Pain Management. Monitor Labs Problems: Consultation Date/Type/Reason Admit Date/Time Mar 23, 2017 at 22:35 Initial Consult Date 03/23/17 Type of Consultation: id Referring Provider: JOSE SINGH MD Exam/Review of Systems Vital Signs Vitals Vital Signs Date Time Temp Pulse Resp B/P Pulse Ox O2 Delivery O2 Flow Rate FiO2 03/26/17 12:16 67 03/26/17 11:50 98.5 19 109/69 96 03/26/17 02:00 Room Air Intake and Output 03/25/17 03/25/17 03/26/17 15:00 23:00 07:00 Intake Total 1300 ml 2450 ml 1400 ml Output Total 15 ml Balance 1300 ml 2435 ml 1400 ml Results Result Diagram: 03/26/17 0325 03/26/17 1209 Results 24 hrs Laboratory Tests Test 03/25/17 15:08 03/25/17 17:00 03/25/17 20:30 03/26/17 01:08 Bedside Glucose 64 L 139 93 80 Test 03/26/17 03:25 03/26/17 08:09 03/26/17 12:09 03/26/17 12:13 White Blood Count 8.0 Red Blood Count 3.60 L Hemoglobin 10.8 L Hematocrit 33.4 L Mean Corpuscular Volume 92.8 Mean Corpuscular Hemoglobin 30.0 Mean Corpuscular Hemoglobin Concent 32.3 Red Cell Distribution Width 13.5 Platelet Count 215 Mean Platelet Volume 11.6 H Neutrophils % 55.0 Lymphocytes % 32.4 Monocytes % 8.8 Eosinophils % 2.6 Basophils % 0.6 Nucleated Red Blood Cells % 0.0 Neutrophils # 4.4 Lymphocytes # 2.6 Monocytes # 0.7 Eosinophils # 0.2 Basophils # 0.1 Nucleated Red Blood Cells # 0.0 Sodium Level 144 142 Potassium Level 3.6 3.9 Chloride Level 102 105 Carbon Dioxide Level 31 28 Anion Gap 15 13 Blood Urea Nitrogen 6 L 5 L Creatinine 1.04 0.87 Glucose Level 62 #L 92 Calcium Level 8.8 8.3 L Magnesium Level 1.6 L 1.7 Troponin I 0.022 0.016 Thyroid Stimulating Hormone (TSH) 15.000 H Bedside Glucose 117 112 Medications Medications Current Medications Prochlorperazine (Compazine) 10 mg Q4H PRN PO NAUSEA AND/OR VOMITING; Start at 19:00 Ondansetron HCl (Zofran Inj) 4 mg Q6H PRN IV NAUSEA AND/OR VOMITING Last administered on 03/24/17 22:09; Admin Dose 4 MG; Start 03/23/17 at 19:00 Al Hydrox/Mg Hydrox/Simethicone (Mag-Al Plus) 15 ml Q4H PRN PO CONSTIPATION; Start 03/23/17 at 19:00 Docusate Sodium (Colace) 100 mg BID PO Last administered on 03/26/17 08:12; Admin Dose 100 MG; Start 03/24/17 at 09:00 Naloxone HCl 0.2 mg 0.2 mg Q2M PRN IV RR 8 BREATHS/MIN OR LESS; Start 03/23/17 at 19:00 Vancomycin HCl 1.25 gm/Sodium Chloride 250 ml @ 83.333 mls/ hr Q12H IVPB Last administered on 03/26/17 08:11; Admin Dose 83.333 MLS/HR; Start 03/23/17 at 20: 30 Sodium Chloride (NS) 1,000 ml @ 100 mls/hr Q10H IV Last administered on 20:35; Admin Dose 100 MLS/HR; Start 03/23/17 at 21:00 Bupropion HCl (Wellbutrin Xl) 300 mg DAILY PO Last administered on 03/26/17 08 :15; Admin Dose 300 MG; Start 03/24/17 at 09:00 Lisinopril (Zestril) 20 mg DAILY PO Last administered on 03/26/17 08:16; Admin Dose 20 MG; Start 03/24/17 at 09:00 Trazodone HCl (Desyrel) 50 mg QHS PO Last administered on 03/25/17 20:36; Admin Dose 50 MG; Start 03/23/17 at 21:00 Valacyclovir HCl (Valtrex) 1,000 mg DAILY PO Last administered on 03/26/17 08: 15; Admin Dose 1,000 MG; Start 03/24/17 at 09:00 Atorvastatin Calcium (Lipitor) 20 mg DAILY@21 PO Last administered on 20:36; Admin Dose 20 MG; Start 03/23/17 at 21:29 Sertraline HCl (Zoloft) 50 mg HS PO Last administered on 03/25/17 20:37; Admin Dose 50 MG; Start 03/24/17 at 21:00 Diagnostic Test (Pha) (Accu-Chek) 1 ea 01 XX Last administered on 03/25/17 01: 11; Admin Dose 1 EA; Start 03/25/17 at 01:00 Oxycodone/ Acetaminophen (Percocet (5/ 325)) 1 tab Q4H PRN PO PAIN; Start 03/24 at 09:30 Oxycodone/ Acetaminophen (Percocet (5/ 325)) 2 tab Q4H PRN PO Severe pain 7-10 Last administered on 03/26/17 05:38; Admin Dose 2 TAB; Start 03/24/17 at 09:30 Gabapentin (Neurontin) 300 mg HS PO Last administered on 03/25/17 21:46; Admin Dose 300 MG; Start 03/25/17 at 21:00 Gabapentin (Neurontin) 100 mg DAILY PO Last administered on 03/26/17 08:13; Admin Dose 100 MG; Start 03/25/17 at 13:30 IV Flush (NS 10 ml) 10 ml PRN PRN IV FLUSH LINE; Start 03/25/17 at 13:30 Acetaminophen (Tylenol Tab) 650 mg Q4H PRN PO PAIN LEVEL 1-3; Start 03/25/17 at 13:30 Rifampin (Rifampin) 600 mg DAILY PO Last administered on 03/26/17 08:14; Admin Dose 600 MG; Start 03/25/17 at 17:20; Stop 04/08/17 at 17:19 Alprazolam (Xanax) 1 mg HS PRN PO INSOMNIA; Start 03/26/17 at 21:00 Alprazolam (Xanax) 2 mg HS PRN PO INSOMNIA; Start 03/26/17 at 11:30 Alprazolam (Xanax) 3 mg HS PRN PO INSOMNIA; Start 03/26/17 at 11:30 Metoprolol Succinate (Toprol Xl) 50 mg DAILY PO Last administered on 03/26/17 12:15; Admin Dose 50 MG; Start 03/26/17 at 11:30 CHAR BRUNNER NP Mar 26, 2017 14:13
--- NOTE | 2017-03-26 14:20 | CONS ---
Date/Time of Note Date/Time of Note DATE: 03/26/17 TIME: 13:41 Assessment/Plan Assessment/Plan Chief Complaint/Hosp Course ID PROGRESS NOTE TOTAL ABX DAY # 4 => VANCO IV + Rifampin s/p Zosyn 24H INTERVAL SUMMARY * No fevers, VSS, NAD, awake, denies F/C/N/V/D/CP/SOB * Case d/w Dr. Narvaez after he consulted with spine surgeon on final ABX recommendations => Per Dr. Narvaez, plan is for Vanco IV x 2 weeks followed by Bactrim DS 1TAB PO BID x 2 weeks. * Lumbar wound Cx: 3+ MRSA, WBC: 8.8 (03/26) WBC: 12.4 (03/24) WBC 17 (03/23) * MICRO: 03/23 lumbar wound I&D (+)MRSA, (-) AFB smear; ANAEROBIC CULTURE Final No anaerobe isolated at 72H PHYSICAL EXAMINATION: GENERAL: VSS, NAD, no fevers HEENT: Unremarkable, NECK: Supple,full ROM CHEST: Equal chest rise bilaterally, without dyspnea on observation HEART: Pulse RRR ABDOMEN: Soft, nontender EXTREMITIES: Warm, DRY SKIN: Warm, dry ID ASSESSMENT: 36 yo M admitted with: 1. SIRS ->Systemic inflammatory response syndrome secondary to postoperative wound infection * Blood Cx (-) 2. Status post L5-S1 decompression on January 30, 2017 3. Status post CSF leak repair on March 09 and I&D of lumbar wound on March 23, 2017 4. Diabetes Type I 5. Psych Dx: Depression 6. Hx of Hypothyroid 7. Hx of HTN ?MRSA Nares INVASIVES: * PICC (03/25/17) ABX ALLERGIES: KNDA CURRENT ABX: DAY # 4 => VANCO IV + Rifampin s/p Zosyn ID RECOMMENDATIONS: FINAL ID ABX recommendations per Dr. Narvaez report to me today: 1. Patient may DC on the following ABX: * Vancomycin IV w/continued dose per pharmacy for a total of 14 days from to last day 04/06/17 with adjunctive Rifampin 600mg po daily until last day ; then * Switch to Bactrim DS 1TAB PO Q12 (take w/full glass H20) for a total of 14 days from 04/07/17 until last day 04/18/17. 2. ID OUTPATIENT PHARMACY ORDER PLACED IN MANAGER MOBILITY CONSULT FOLLOWS ID OUTPATIENT PHARMACY ORDER May DC when cleared by primary on the following IV ABX via PICC Line. * 1. Vancomycin 1250mg IVPB Q12 hours with next dose scheduled 03/24/17 @ 2030 via Nurse w/continued dose per outpatient pharmacy for a total of 14 days from 03/23/17 to last day 04/06/17 via PICC Line. * 2. Draw Vanco trough, BUN, Serum Creatinine on 03/27/17 am prior to 03/27/17m dose with pharmacy to advise on 03/27/17 pm maintenance dosing. * BASELINES: WT 75.3kg; BMI 26.8; BSA 1.89m2; Vanco trough 13.1 on 03/24/17 @ 1925; ESR 16 on 03/23/17; S.Creatinine range (03/23 1.15 -> 03/26 0.87) * 3. PICC Line care via RN per HH/pharmacy protocol. RN May DC PICC Line after last dose. * 4. Rifampin 600mg po daily until last day 04/06/17; then Switch to Bactrim DS 1TAB PO Q12 (take w/full glass H20) for a total of 14 days from 04/07/17 until last day 04/18/17. D/W Dr. Burnette . Problems: Consultation Date/Type/Reason Admit Date/Time Mar 23, 2017 at 22:35 Initial Consult Date 03/23/17 Type of Consultation: ID Referring Provider: JOSE SINGH MD Exam/Review of Systems Vital Signs Vitals Vital Signs Date Time Temp Pulse Resp B/P Pulse Ox O2 Delivery O2 Flow Rate FiO2 03/26/17 12:16 67 03/26/17 11:50 98.5 19 109/69 96 03/26/17 02:00 Room Air Intake and Output 03/25/17 03/25/17 03/26/17 15:00 23:00 07:00 Intake Total 1300 ml 2450 ml 1400 ml Output Total 15 ml Balance 1300 ml 2435 ml 1400 ml Results Result Diagram: 03/26/17 0325 03/26/17 1209 Results 24 hrs Laboratory Tests Test 03/25/17 15:08 03/25/17 17:00 03/25/17 20:30 03/26/17 01:08 Bedside Glucose 64 L 139 93 80 Test 03/26/17 03:25 03/26/17 08:09 03/26/17 12:09 03/26/17 12:13 White Blood Count 8.0 Red Blood Count 3.60 L Hemoglobin 10.8 L Hematocrit 33.4 L Mean Corpuscular Volume 92.8 Mean Corpuscular Hemoglobin 30.0 Mean Corpuscular Hemoglobin Concent 32.3 Red Cell Distribution Width 13.5 Platelet Count 215 Mean Platelet Volume 11.6 H Neutrophils % 55.0 Lymphocytes % 32.4 Monocytes % 8.8 Eosinophils % 2.6 Basophils % 0.6 Nucleated Red Blood Cells % 0.0 Neutrophils # 4.4 Lymphocytes # 2.6 Monocytes # 0.7 Eosinophils # 0.2 Basophils # 0.1 Nucleated Red Blood Cells # 0.0 Sodium Level 144 142 Potassium Level 3.6 3.9 Chloride Level 102 105 Carbon Dioxide Level 31 28 Anion Gap 15 13 Blood Urea Nitrogen 6 L 5 L Creatinine 1.04 0.87 Glucose Level 62 #L 92 Calcium Level 8.8 8.3 L Magnesium Level 1.6 L 1.7 Troponin I 0.022 0.016 Thyroid Stimulating Hormone (TSH) 15.000 H Bedside Glucose 117 112 Medications Medications Current Medications Prochlorperazine (Compazine) 10 mg Q4H PRN PO NAUSEA AND/OR VOMITING; Start at 19:00 Ondansetron HCl (Zofran Inj) 4 mg Q6H PRN IV NAUSEA AND/OR VOMITING Last administered on 03/24/17 22:09; Admin Dose 4 MG; Start 03/23/17 at 19:00 Al Hydrox/Mg Hydrox/Simethicone (Mag-Al Plus) 15 ml Q4H PRN PO CONSTIPATION; Start 03/23/17 at 19:00 Docusate Sodium (Colace) 100 mg BID PO Last administered on 03/26/17 08:12; Admin Dose 100 MG; Start 03/24/17 at 09:00 Naloxone HCl 0.2 mg 0.2 mg Q2M PRN IV RR 8 BREATHS/MIN OR LESS; Start 03/23/17 at 19:00 Vancomycin HCl 1.25 gm/Sodium Chloride 250 ml @ 83.333 mls/ hr Q12H IVPB Last administered on 03/26/17 08:11; Admin Dose 83.333 MLS/HR; Start 03/23/17 at 20: 30 Sodium Chloride (NS) 1,000 ml @ 100 mls/hr Q10H IV Last administered on 20:35; Admin Dose 100 MLS/HR; Start 03/23/17 at 21:00 Bupropion HCl (Wellbutrin Xl) 300 mg DAILY PO Last administered on 03/26/17 08 :15; Admin Dose 300 MG; Start 03/24/17 at 09:00 Lisinopril (Zestril) 20 mg DAILY PO Last administered on 03/26/17 08:16; Admin Dose 20 MG; Start 03/24/17 at 09:00 Trazodone HCl (Desyrel) 50 mg QHS PO Last administered on 03/25/17 20:36; Admin Dose 50 MG; Start 03/23/17 at 21:00 Valacyclovir HCl (Valtrex) 1,000 mg DAILY PO Last administered on 03/26/17 08: 15; Admin Dose 1,000 MG; Start 03/24/17 at 09:00 Atorvastatin Calcium (Lipitor) 20 mg DAILY@21 PO Last administered on 20:36; Admin Dose 20 MG; Start 03/23/17 at 21:29 Sertraline HCl (Zoloft) 50 mg HS PO Last administered on 03/25/17 20:37; Admin Dose 50 MG; Start 03/24/17 at 21:00 Diagnostic Test (Pha) (Accu-Chek) 1 ea 01 XX Last administered on 03/25/17 01: 11; Admin Dose 1 EA; Start 03/25/17 at 01:00 Oxycodone/ Acetaminophen (Percocet (5/ 325)) 1 tab Q4H PRN PO PAIN; Start 03/24 at 09:30 Oxycodone/ Acetaminophen (Percocet (5/ 325)) 2 tab Q4H PRN PO Severe pain 7-10 Last administered on 03/26/17 05:38; Admin Dose 2 TAB; Start 03/24/17 at 09:30 Gabapentin (Neurontin) 300 mg HS PO Last administered on 03/25/17 21:46; Admin Dose 300 MG; Start 03/25/17 at 21:00 Gabapentin (Neurontin) 100 mg DAILY PO Last administered on 03/26/17 08:13; Admin Dose 100 MG; Start 03/25/17 at 13:30 IV Flush (NS 10 ml) 10 ml PRN PRN IV FLUSH LINE; Start 03/25/17 at 13:30 Acetaminophen (Tylenol Tab) 650 mg Q4H PRN PO PAIN LEVEL 1-3; Start 03/25/17 at 13:30 Rifampin (Rifampin) 600 mg DAILY PO Last administered on 03/26/17 08:14; Admin Dose 600 MG; Start 03/25/17 at 17:20; Stop 04/08/17 at 17:19 Alprazolam (Xanax) 1 mg HS PRN PO INSOMNIA; Start 03/26/17 at 21:00 Alprazolam (Xanax) 2 mg HS PRN PO INSOMNIA; Start 03/26/17 at 11:30 Alprazolam (Xanax) 3 mg HS PRN PO INSOMNIA; Start 03/26/17 at 11:30 Metoprolol Succinate (Toprol Xl) 50 mg DAILY PO Last administered on 03/26/17 12:15; Admin Dose 50 MG; Start 03/26/17 at 11:30 KWESI SHUKLA NP Mar 26, 2017 13:51
[2017-03-26] MEDS: ATORVASTATIN 20 MG TAB PO SCH (20:20)
[2017-03-26] MEDS: traZODone 50 MG TAB PO SCH (20:20)
[2017-03-26] MEDS: SERTRALINE 50 MG TAB PO SCH (20:21)
[2017-03-26] MEDS: GABAPENTIN 300 MG CAP PO SCH (20:21)
[2017-03-26] MEDS: ALPRAZOLAM 1 MG TAB PO PRN (20:56)
--- NOTE | 2017-03-26 21:55 | RADRPT ---
Echocardiogram Report Patient Name: EFRAIN DIAZ Gender: Male Date: 1980 Study Date: 26-Mar-2017 Area Attendant: [facility] Location: [id number] Ref. Physician: DANA SANTOS Quality: Adequate Procedures: Transthoracic echocardiogram with complete 2D, M-Mode, and doppler examination. Indications: Non sustained V-tach. 2D/M Mode Doppler Measurement Value Normal Ranges Measurement Value Normal Ranges LVIDd 2D 4.7 3.5 - 5.6 cm AV Peak Oscar 1.2 m/sec LVIDs 2D 3.2 2.1 - 4.1 cm AV Peak PG 5.0 mmHg FS 2D 30.3 % LVOT Peak Oscar 0.9 m/sec LVPWd 2D 1.1 0.6 - 1.1 cm LVOT Peak PG 3.0 mmHg IVSd 2D 1.1 0.6 - 1.1 cm MV E Peak Oscar 1.0 m/sec IVS/LVPW 2D 1.0 MV A Peak Oscar 0.6 m/sec AoR Diam 2D 2.9 2.0 - 3.7 cm MV E/A 1.7 LA/Ao 2D 1 0 - 1 MV Decel Time 239 msec EDV 2D 101.0 cm3 MV E/A 1.7 ESV 2D 34.0 cm3 MR Peak PG 89.0 mmHg LA Dimen 2D 3.6 2.3 - 4.0 cm MR Peak Oscar 4.7 m/sec TR Peak Oscar 2.3 m/sec TR Peak PG 22.0 mmHg RVSP 24.0 mmHg Findings Left Ventricle: Normal left ventricular systolic function. Normal left ventricular cavity size. Normal left ventricular wall thickness. Ejection fraction is visually estimated at 55 %. Abnormal Diastolic Function. Right Ventricle: Normal right ventricular size. Normal right ventricular systolic function. Left Atrium: The left atrium is normal in size. Right Atrium: The right atrium is normal in size. Mitral Valve: Mitral valve leaflets appear mildly thickened. Mild mitral annular calcification. Mild mitral valve regurgitation. Aortic Valve: Normal appearance of the aortic valve. No significant aortic stenosis or insufficiency. Tricuspid Valve: Normal appearance of the tricuspid valve. Estimated peak PA systolic pressure 24 mmHg. There is mild tricuspid regurgitation. Pulmonic Valve: Pulmonic valve not well visualized. There is trace pulmonic regurgitation. Pericardium: Normal pericardium with no significant pericardial effusion. Aorta: Normal aortic root. IVC: Normal size and normal respiratory collapse consistent with normal right atrial pressure. Conclusions Normal left ventricular systolic function. Normal left ventricular cavity size. Normal left ventricular wall thickness. Ejection fraction is visually estimated at 55 %. Abnormal Diastolic Function. Normal right ventricular size. Normal right ventricular systolic function. The left atrium is normal in size. The right atrium is normal in size. Mild mitral valve regurgitation. No significant aortic stenosis or insufficiency. Estimated peak PA systolic pressure 24 mmHg. There is mild tricuspid regurgitation. Normal pericardium with no significant pericardial effusion. Electronically Signed By: Mino Shah 26-Mar-2017 21:54:44 -0700 Patient Name: EFRAIN DIAZ Study Date: 26-Mar-[id number]
[2017-03-27] VITALS (12 sets, daily range): BP systolic 103–141; BP diastolic 56–81; PULSE 62–78; RESP 18–21
[2017-03-27] MEDS: [UNRECOGNIZED DRUG - REMARK] XX SCH (01:00)
[2017-03-27] MEDS: SOD CHLORIDE 0.9% 1,000 ML IV SCH ×2 (06:34→15:00)
[2017-03-27] MEDS: LEVOTHYROXINE 175 MCG TAB PO SCH (06:35)
--- NOTE | 2017-03-27 07:12 | CONS ---
Date/Time of Note Date/Time of Note DATE: 03/27/17 TIME: 07:08 Consultation Date/Type/Reason Admit Date/Time Mar 23, 2017 at 22:35 Type of Consultation: Ortho Spine Progress Note Reason for Consultation S: 36 yo Male POD#4 s/p I&D of lumbar wound infection. No acute events over- night. Patient has been afebrile and has had reduction in his WBC. He denies any headaches. He has been up and walking. He reports significant improvement in his back pain. His wound Cx are growing MRSA and he is on coverage with Vancomycin and Rifampin. His blood cx has been negative. ID and Medicine are following. He had a echo perfoemed yesterday which was within normal limits. O: Tmax 98 BP: 122/70, HR currently 59-69, Drain output:15 cc in 12 hrs Gen: AAOx3, NAD Spine: 5/5 strength in b/l KE/TA/GS/EHL, +SILT L3-S1, posterior lumbar wound with minimal SS drainage, intact marked improvement in erythema Lumbar wound Cx: 3+ MRSA, WBC: 8.8 (03/26) WBC: 12.4 (/) WBC 17 (/) A/P: 36 yo Male POD#4 s/p I&D of lumbar wound infection (+MRSA). 1. MRSA infection- likely will need 2 weeks of IV Abx (Vanco) followed by 2 weeks of Bactrim as per ID recs, PICC line is in place will get case management to help with home health 2. WBAT and up with PT 3. appreciate Medicine recs concerning Diabetes, hyothyroid and epsiode of Vtach (non-sustained) 4. D/C planning, pending home health approval with Case Management Referring Provider: JOSE SINGH MD Exam/Review of Systems Vital Signs Vitals Vital Signs Date Time Temp Pulse Resp B/P Pulse Ox O2 Delivery O2 Flow Rate FiO2 03/27/17 06:38 98.0 18 122/70 96 03/27/17 04:10 69 03/26/17 02:00 Room Air Intake and Output 03/26/17 03/26/17 03/27/17 15:00 23:00 07:00 Intake Total 1900 ml 2200 ml Output Total 5 ml Balance -5 ml 1900 ml 2200 ml Results Result Diagram: 03/26/17 0325 03/26/17 1209 Results 24 hrs Laboratory Tests Test 03/26/17 08:09 03/26/17 12:09 03/26/17 12:13 03/26/17 17:39 Bedside Glucose 117 112 141 Sodium Level 142 Potassium Level 3.9 Chloride Level 105 Carbon Dioxide Level 28 Anion Gap 13 Blood Urea Nitrogen 5 L Creatinine 0.87 Glucose Level 92 Calcium Level 8.3 L Magnesium Level 1.7 Troponin I 0.016 Test 03/26/17 20:14 03/27/17 01:37 03/27/17 06:33 Bedside Glucose 113 72 103 Medications Medications Current Medications Prochlorperazine (Compazine) 10 mg Q4H PRN PO NAUSEA AND/OR VOMITING; Start at 19:00 Ondansetron HCl (Zofran Inj) 4 mg Q6H PRN IV NAUSEA AND/OR VOMITING Last administered on 03/24/17 22:09; Admin Dose 4 MG; Start 03/23/17 at 19:00 Al Hydrox/Mg Hydrox/Simethicone (Mag-Al Plus) 15 ml Q4H PRN PO CONSTIPATION; Start 03/23/17 at 19:00 Docusate Sodium (Colace) 100 mg BID PO Last administered on 03/26/17 08:12; Admin Dose 100 MG; Start 03/24/17 at 09:00 Naloxone HCl 0.2 mg 0.2 mg Q2M PRN IV RR 8 BREATHS/MIN OR LESS; Start 03/23/17 at 19:00 Vancomycin HCl 1.25 gm/Sodium Chloride 250 ml @ 83.333 mls/ hr Q12H IVPB Last administered on 03/26/17 20:20; Admin Dose 83.333 MLS/HR; Start 03/23/17 at 20: 30 Sodium Chloride (NS) 1,000 ml @ 100 mls/hr Q10H IV Last administered on 06:34; Admin Dose 100 MLS/HR; Start 03/23/17 at 21:00 Bupropion HCl (Wellbutrin Xl) 300 mg DAILY PO Last administered on 03/26/17 08 :15; Admin Dose 300 MG; Start 03/24/17 at 09:00 Lisinopril (Zestril) 20 mg DAILY PO Last administered on 03/26/17 08:16; Admin Dose 20 MG; Start 03/24/17 at 09:00 Trazodone HCl (Desyrel) 50 mg QHS PO Last administered on 03/26/17 20:20; Admin Dose 50 MG; Start 03/23/17 at 21:00 Valacyclovir HCl (Valtrex) 1,000 mg DAILY PO Last administered on 03/26/17 08: 15; Admin Dose 1,000 MG; Start 03/24/17 at 09:00 Atorvastatin Calcium (Lipitor) 20 mg DAILY@21 PO Last administered on 20:20; Admin Dose 20 MG; Start 03/23/17 at 21:29 Sertraline HCl (Zoloft) 50 mg HS PO Last administered on 03/26/17 20:21; Admin Dose 50 MG; Start 03/24/17 at 21:00 Diagnostic Test (Pha) (Accu-Chek) 1 ea 01 XX Last administered on 03/25/17 01: 11; Admin Dose 1 EA; Start 03/25/17 at 01:00 Oxycodone/ Acetaminophen (Percocet (5/ 325)) 1 tab Q4H PRN PO PAIN; Start 03/24 at 09:30 Oxycodone/ Acetaminophen (Percocet (5/ 325)) 2 tab Q4H PRN PO Severe pain 7-10 Last administered on 03/26/17 21:00; Admin Dose 2 TAB; Start 03/24/17 at 09:30 Gabapentin (Neurontin) 300 mg HS PO Last administered on 03/26/17 20:21; Admin Dose 300 MG; Start 03/25/17 at 21:00 Gabapentin (Neurontin) 100 mg DAILY PO Last administered on 03/26/17 08:13; Admin Dose 100 MG; Start 03/25/17 at 13:30 IV Flush (NS 10 ml) 10 ml PRN PRN IV FLUSH LINE; Start 03/25/17 at 13:30 Acetaminophen (Tylenol Tab) 650 mg Q4H PRN PO PAIN LEVEL 1-3; Start 03/25/17 at 13:30 Rifampin (Rifampin) 600 mg DAILY PO Last administered on 03/26/17 08:14; Admin Dose 600 MG; Start 03/25/17 at 17:20; Stop 04/08/17 at 17:19 Alprazolam (Xanax) 1 mg HS PRN PO INSOMNIA; Start 03/26/17 at 21:00 Alprazolam (Xanax) 2 mg HS PRN PO INSOMNIA; Start 03/26/17 at 11:30 Alprazolam (Xanax) 3 mg HS PRN PO INSOMNIA Last administered on 03/26/17 20:56 ; Admin Dose 3 MG; Start 03/26/17 at 11:30 Metoprolol Succinate (Toprol Xl) 50 mg DAILY PO Last administered on 03/26/17 12:15; Admin Dose 50 MG; Start 03/26/17 at 11:30 JOSE SINGH MD Mar 27, 2017 07:12
[2017-03-27] MEDS: INSULIN PUMP SC SCH ×4 (07:25→21:00)
[2017-03-27] MEDS: DOCUSATE SODIUM 100 MG CAP PO SCH ×2 (09:00→21:00)
[2017-03-27] MEDS: VANCOMYCIN 1.25 GM in SOD CHLORIDE 0.9% 250 ML IVPB SCH ×2 (09:25→20:30)
[2017-03-27] MEDS: BUPROPION (XL) 150 MG TAB PO SCH (09:25)
[2017-03-27] MEDS: RIFAMPIN 300 MG CAP PO SCH (09:25)
[2017-03-27] MEDS: LISINOPRIL 20 MG TAB PO SCH (09:26)
[2017-03-27] MEDS: VALACYCLOVIR 500 MG TAB PO SCH (09:27)
[2017-03-27] MEDS: OXYCODONE/ACETAMINOPHEN (5/325) TAB PO PRN ×3 (09:27→21:15)
[2017-03-27] MEDS: METOPROLOL (XL) 50 MG TAB PO SCH (09:27)
[2017-03-27] MEDS: GABAPENTIN 100 MG CAP PO SCH (09:27)
[2017-03-27] MEDS: ONDANSETRON 4 MG INJ IV PRN (12:02)
--- NOTE | 2017-03-27 13:29 | CONS ---
Date/Time of Note Date/Time of Note DATE: 03/27/17 TIME: 13:26 Assessment/Plan Assessment/Plan Chief Complaint/Hosp Course No acute changes overnight. Patient is awake, looks comfortable, no fevers, family at bedside Antimicrobials: Vancomycin and rifampin Microbiology: Wound cultures growing MRSA Physical examination: Well-developed middle-aged white man who is alert in no distress. Head atraumatic normocephalic sclera nonicteric. Neck is supple, trachea midline. Chest rise symmetrical breath sounds diminished to bases. Heart: S1-S2. Abdomen soft, bowel tones present. Extremities without cyanosis. Assessment: 1. Systemic inflammatory response syndrome secondary to postoperative MRSA wound infection 2. Status post L5-S1 decompression on January 30, 2017 3. Status post CSF leak repair on March 09 and I&D of lumbar wound on March 23, 2017 4. Diabetes Plan: Clinically stable, continue Vanco and rifampin till 04/06 then change to PO Bactrim for 2 more weeks, follow Ortho recommendations, january f/u with Dr Narvaez Discussed with patient and family at bedside Problems: Consultation Date/Type/Reason Admit Date/Time Mar 23, 2017 at 22:35 Type of Consultation: ID Referring Provider: JOSE SINGH MD Exam/Review of Systems Vital Signs Vitals Vital Signs Date Time Temp Pulse Resp B/P Pulse Ox O2 Delivery O2 Flow Rate FiO2 03/27/17 12:15 74 03/27/17 10:57 98.7 18 103/56 98 03/26/17 02:00 Room Air Intake and Output 03/26/17 03/26/17 03/27/17 15:00 23:00 07:00 Intake Total 1900 ml 2200 ml Output Total 5 ml Balance -5 ml 1900 ml 2200 ml Results Result Diagram: 03/26/17 0325 03/26/17 1209 Results 24 hrs Laboratory Tests Test 03/26/17 17:39 03/26/17 20:14 03/27/17 01:11 03/27/17 01:37 Bedside Glucose 141 113 44 *L 72 Test 03/27/17 06:33 03/27/17 10:20 Bedside Glucose 103 78 Medications Medications Current Medications Prochlorperazine (Compazine) 10 mg Q4H PRN PO NAUSEA AND/OR VOMITING; Start at 19:00 Ondansetron HCl (Zofran Inj) 4 mg Q6H PRN IV NAUSEA AND/OR VOMITING Last administered on 03/27/17 12:02; Admin Dose 4 MG; Start 03/23/17 at 19:00 Al Hydrox/Mg Hydrox/Simethicone (Mag-Al Plus) 15 ml Q4H PRN PO CONSTIPATION; Start 03/23/17 at 19:00 Docusate Sodium (Colace) 100 mg BID PO Last administered on 03/26/17 08:12; Admin Dose 100 MG; Start 03/24/17 at 09:00 Naloxone HCl 0.2 mg 0.2 mg Q2M PRN IV RR 8 BREATHS/MIN OR LESS; Start 03/23/17 at 19:00 Vancomycin HCl 1.25 gm/Sodium Chloride 250 ml @ 83.333 mls/ hr Q12H IVPB Last administered on 03/27/17 09:25; Admin Dose 83.333 MLS/HR; Start 03/23/17 at 20: 30; Stop 04/06/17 at 20:00 Sodium Chloride (NS) 1,000 ml @ 100 mls/hr Q10H IV Last administered on 06:34; Admin Dose 100 MLS/HR; Start 03/23/17 at 21:00 Bupropion HCl (Wellbutrin Xl) 300 mg DAILY PO Last administered on 03/27/17 09 :25; Admin Dose 300 MG; Start 03/24/17 at 09:00 Lisinopril (Zestril) 20 mg DAILY PO Last administered on 03/27/17 09:26; Admin Dose 20 MG; Start 03/24/17 at 09:00 Trazodone HCl (Desyrel) 50 mg QHS PO Last administered on 03/26/17 20:20; Admin Dose 50 MG; Start 03/23/17 at 21:00 Valacyclovir HCl (Valtrex) 1,000 mg DAILY PO Last administered on 03/27/17 09: 27; Admin Dose 1,000 MG; Start 03/24/17 at 09:00 Atorvastatin Calcium (Lipitor) 20 mg DAILY@21 PO Last administered on 20:20; Admin Dose 20 MG; Start 03/23/17 at 21:29 Sertraline HCl (Zoloft) 50 mg HS PO Last administered on 03/26/17 20:21; Admin Dose 50 MG; Start 03/24/17 at 21:00 Diagnostic Test (Pha) (Accu-Chek) 1 ea 01 XX Last administered on 03/25/17 01: 11; Admin Dose 1 EA; Start 03/25/17 at 01:00 Oxycodone/ Acetaminophen (Percocet (5/ 325)) 1 tab Q4H PRN PO PAIN; Start 03/24 at 09:30 Oxycodone/ Acetaminophen (Percocet (5/ 325)) 2 tab Q4H PRN PO Severe pain 7-10 Last administered on 03/27/17 09:27; Admin Dose 2 TAB; Start 03/24/17 at 09:30 Gabapentin (Neurontin) 300 mg HS PO Last administered on 03/26/17 20:21; Admin Dose 300 MG; Start 03/25/17 at 21:00 Gabapentin (Neurontin) 100 mg DAILY PO Last administered on 03/27/17 09:27; Admin Dose 100 MG; Start 03/25/17 at 13:30 IV Flush (NS 10 ml) 10 ml PRN PRN IV FLUSH LINE; Start 03/25/17 at 13:30 Acetaminophen (Tylenol Tab) 650 mg Q4H PRN PO PAIN LEVEL 1-3; Start 03/25/17 at 13:30 Rifampin (Rifampin) 600 mg DAILY PO Last administered on 03/27/17 09:25; Admin Dose 600 MG; Start 03/25/17 at 17:20; Stop 04/08/17 at 17:19 Alprazolam (Xanax) 1 mg HS PRN PO INSOMNIA; Start 03/26/17 at 21:00 Alprazolam (Xanax) 2 mg HS PRN PO INSOMNIA; Start 03/26/17 at 11:30 Alprazolam (Xanax) 3 mg HS PRN PO INSOMNIA Last administered on 03/26/17 20:56 ; Admin Dose 3 MG; Start 03/26/17 at 11:30 Metoprolol Succinate (Toprol Xl) 50 mg DAILY PO Last administered on 03/27/17 09:27; Admin Dose 50 MG; Start 03/26/17 at 11:30 Trimethoprim/ Sulfamethoxazole (Bactrim (Ds)) 1 tab BID PO ; Start 04/07/17 at 21:00; Stop 04/19/17 at 20:59 CARMELA JIMENEZ NP Mar 27, 2017 13:29
[2017-03-27] MEDS: metroNIDAZOLE 250 MG TAB PO SCH (19:49)
[2017-03-27] MEDS: L ACIDOPHIL/B LACTIS/B LONGUM CAPSULE PO SCH (21:00)
[2017-03-27] MEDS: traZODone 50 MG TAB PO SCH (21:12)
[2017-03-27] MEDS: GABAPENTIN 300 MG CAP PO SCH (21:12)
[2017-03-27] MEDS: ALPRAZOLAM 1 MG TAB PO PRN (21:12)
[2017-03-27] MEDS: SERTRALINE 50 MG TAB PO SCH (21:13)
[2017-03-27] MEDS: ATORVASTATIN 20 MG TAB PO SCH (21:14)
[2017-03-28] VITALS (7 sets, daily range): BP systolic 126–133; BP diastolic 57–79; PULSE 56–73; RESP 18–19
[2017-03-28] MEDS: SOD CHLORIDE 0.9% 1,000 ML IV SCH ×2 (01:00→10:14)
[2017-03-28] MEDS: [UNRECOGNIZED DRUG - REMARK] XX SCH (01:00)
[2017-03-28] MEDS ORDERED: DEXTROSE 50% 50 ML SYRINGE ONE (02:20)
[2017-03-28] MEDS: metroNIDAZOLE 250 MG TAB PO SCH ×3 (05:49→11:23)
[2017-03-28] MEDS: INSULIN PUMP SC SCH ×2 (07:25→11:20)
[2017-03-28] MEDS: VANCOMYCIN 1.25 GM in SOD CHLORIDE 0.9% 250 ML IVPB SCH (08:30)
[2017-03-28] MEDS: DOCUSATE SODIUM 100 MG CAP PO SCH (09:00)
[2017-03-28] MEDS: METOPROLOL (XL) 50 MG TAB PO SCH (09:01)
[2017-03-28] MEDS: LEVOTHYROXINE 175 MCG TAB PO SCH (09:02)
[2017-03-28] MEDS: RIFAMPIN 300 MG CAP PO SCH (09:02)
[2017-03-28] MEDS: L ACIDOPHIL/B LACTIS/B LONGUM CAPSULE PO SCH (09:02)
[2017-03-28] MEDS: BUPROPION (XL) 150 MG TAB PO SCH (09:02)
[2017-03-28] MEDS: ONDANSETRON 4 MG INJ IV PRN (09:03)
[2017-03-28] MEDS: GABAPENTIN 100 MG CAP PO SCH (09:03)
[2017-03-28] MEDS: OXYCODONE/ACETAMINOPHEN (5/325) TAB PO PRN (09:03)
[2017-03-28] MEDS: LISINOPRIL 20 MG TAB PO SCH (09:03)
[2017-03-28] MEDS: VALACYCLOVIR 500 MG TAB PO SCH (09:03)
--- NOTE | 2017-03-28 12:06 | CONS ---
Date/Time of Note Date/Time of Note DATE: 03/28/17 TIME: 12:01 Consultation Date/Type/Reason Admit Date/Time Mar 23, 2017 at 22:35 Type of Consultation: Ortho Spine Progress Note Referring Provider: JOSE SINGH MD 24 HR Interval Summary Free Text/Dictation S: 36 yo Male POD#5 s/p I&D of lumbar wound infection. No acute events over- night. Patient has been afebrile and has had reduction in his WBC. He denies any headaches. He has been up and walking. He reports significant improvement in his back pain. His wound Cx are growing MRSA and he is on coverage with Vancomycin and Rifampin. His blood cx has been negative. ID and Medicine are following. He had some nausea and diarrhea yesterday. Stool sample was sent for C. diff. He has been started on Flagyl. He reports improvement in diarrhea. C. Diff, assay is negative. O: Gen: AAOx3, NAD Abdomen: soft, non-tender, non--distended Spine: 5/5 strength in b/l KE/TA/GS/EHL, +SILT L3-S1, posterior lumbar wound with minimal SS drainage, intact marked improvement in erythema Lumbar wound Cx: 3+ MRSA, WBC: 8.8 (/) WBC: 12.4 (/) WBC 17 (/) A/P: 36 yo Male POD#4 s/p I&D of lumbar wound infection (+MRSA). 1. MRSA infection- will appreciate ID recs. Will need 2 weeks of IV Abx (Vanco) followed by 2 weeks of Bactrim as per ID recs, PICC line is in place, home health has been arranged, patient also on Rifampin; Possible C. Diff. Patient on flagyl as per ID. 2. WBAT and up with PT 3. appreciate Medicine recs concerning Diabetes, hyothyroid and epsiode of Vtach (non-sustained) 4. D/C home today. Home health has been set up. Exam/Review of Systems Vital Signs Vitals Vital Signs Date Time Temp Pulse Resp B/P Pulse Ox O2 Delivery O2 Flow Rate FiO2 03/28/17 08:28 64 03/28/17 07:23 98.5 18 126/57 99 03/26/17 02:00 Room Air Intake and Output 03/27/17 03/27/17 03/28/17 15:00 23:00 07:00 Intake Total 720 ml 650 ml Balance 720 ml 650 ml Results Result Diagram: 03/26/17 0325 03/26/17 1209 Results 24 hrs Laboratory Tests Test 03/27/17 14:29 03/27/17 15:00 03/27/17 15:30 03/27/17 18:42 Bedside Glucose 45 *L 68 L 117 135 Test 03/27/17 20:00 03/27/17 21:19 03/28/17 02:17 03/28/17 02:37 Vancomycin Level Trough 14.7 Bedside Glucose 124 52 L 81 Test 03/28/17 08:55 03/28/17 11:23 Bedside Glucose 70 134 Medications Medications Current Medications Prochlorperazine (Compazine) 10 mg Q4H PRN PO NAUSEA AND/OR VOMITING; Start at 19:00 Ondansetron HCl (Zofran Inj) 4 mg Q6H PRN IV NAUSEA AND/OR VOMITING Last administered on 03/28/17 09:03; Admin Dose 4 MG; Start 03/23/17 at 19:00 Al Hydrox/Mg Hydrox/Simethicone (Mag-Al Plus) 15 ml Q4H PRN PO CONSTIPATION; Start 03/23/17 at 19:00 Docusate Sodium (Colace) 100 mg BID PO Last administered on 03/26/17 08:12; Admin Dose 100 MG; Start 03/24/17 at 09:00 Naloxone HCl 0.2 mg 0.2 mg Q2M PRN IV RR 8 BREATHS/MIN OR LESS; Start 03/23/17 at 19:00 Sodium Chloride (NS) 1,000 ml @ 100 mls/hr Q10H IV Last administered on 10:14; Admin Dose 100 MLS/HR; Start 03/23/17 at 21:00 Bupropion HCl (Wellbutrin Xl) 300 mg DAILY PO Last administered on 03/28/17 09 :02; Admin Dose 300 MG; Start 03/24/17 at 09:00 Lisinopril (Zestril) 20 mg DAILY PO Last administered on 03/28/17 09:03; Admin Dose 20 MG; Start 03/24/17 at 09:00 Trazodone HCl (Desyrel) 50 mg QHS PO Last administered on 03/27/17 21:12; Admin Dose 50 MG; Start 03/23/17 at 21:00 Valacyclovir HCl (Valtrex) 1,000 mg DAILY PO Last administered on 03/28/17 09: 03; Admin Dose 1,000 MG; Start 03/24/17 at 09:00 Atorvastatin Calcium (Lipitor) 20 mg DAILY@21 PO Last administered on 21:14; Admin Dose 20 MG; Start 03/23/17 at 21:29 Sertraline HCl (Zoloft) 50 mg HS PO Last administered on 03/27/17 21:13; Admin Dose 50 MG; Start 03/24/17 at 21:00 Diagnostic Test (Pha) (Accu-Chek) 1 ea 01 XX Last administered on 03/28/17 01: 00; Admin Dose 1 EA; Start 03/25/17 at 01:00 Oxycodone/ Acetaminophen (Percocet (5/ 325)) 1 tab Q4H PRN PO PAIN Last administered on 03/27/17 21:15; Admin Dose 1 TAB; Start 03/24/17 at 09:30 Oxycodone/ Acetaminophen (Percocet (5/ 325)) 2 tab Q4H PRN PO Severe pain 7-10 Last administered on 03/28/17 09:03; Admin Dose 2 TAB; Start 03/24/17 at 09:30 Gabapentin (Neurontin) 300 mg HS PO Last administered on 03/27/17 21:12; Admin Dose 300 MG; Start 03/25/17 at 21:00 Gabapentin (Neurontin) 100 mg DAILY PO Last administered on 03/28/17 09:03; Admin Dose 100 MG; Start 03/25/17 at 13:30 IV Flush (NS 10 ml) 10 ml PRN PRN IV FLUSH LINE; Start 03/25/17 at 13:30 Acetaminophen (Tylenol Tab) 650 mg Q4H PRN PO PAIN LEVEL 1-3; Start 03/25/17 at 13:30 Rifampin (Rifampin) 600 mg DAILY PO Last administered on 03/28/17 09:02; Admin Dose 600 MG; Start 03/25/17 at 17:20; Stop 04/08/17 at 17:19 Alprazolam (Xanax) 1 mg HS PRN PO INSOMNIA; Start 03/26/17 at 21:00 Alprazolam (Xanax) 2 mg HS PRN PO INSOMNIA; Start 03/26/17 at 11:30 Alprazolam (Xanax) 3 mg HS PRN PO INSOMNIA Last administered on 03/27/17 21:12 ; Admin Dose 3 MG; Start 03/26/17 at 11:30 Metoprolol Succinate (Toprol Xl) 50 mg DAILY PO Last administered on 03/28/17 09:01; Admin Dose 50 MG; Start 03/26/17 at 11:30 Metronidazole (Flagyl) 250 mg Q6 PO Last administered on 03/28/17 11:23; Admin Dose 250 MG; Start 03/27/17 at 18:00 Lactobacillus Acidophilus 1 each 1 each BID PO Last administered on 03/28/17 09:02; Admin Dose 1 EACH; Start 03/27/17 at 21:00 Vancomycin HCl/ Sodium Chloride (Vancocin/NS) 250 ml @ 83.333 mls/ hr Q12H IVPB ; Start 03/28/17 at 17:00; Stop 04/06/17 at 20:00 JOSE SINGH MD Mar 28, 2017 12:06
--- NOTE | 2017-03-28 13:17 | PDOCDIS ---
Discharge Instructions DIAGNOSIS Discharge Diagnosis MRSA wound infection postop; diabetes mellitus type 1; anxiety disorder; hypertension; hyperlipidemia; asthma persistent mild; CONDITION Patient Condition: Fair HOME CARE INSTRUCTIONS: Special Diet: Diabetic ACTIVITY: Activity Restrictions: Slowly Increase Activity Avoid heavy lifting Do not operate Machinery Do not operate Power Tool FOLLOW UP/APPOINTMENTS Follow-up Plan Spinal surgery in 1 week; primary care physician in 3 weeks SCHOOL/WORK RELEASE May return to School/Work with: With Restrictions DANA SANTOS MD Mar 28, 2017 13:16
--- NOTE | 2017-03-28 13:19 | DS ---
Date/Time of Note Date/Time of Note DATE: 03/28/17 TIME: : Discharge Summary Admission/Discharge Info Admit Date/Time Mar 23, 2017 at 22:35 Discharge Date/Time 03/28/2017 Discharge Diagnosis MRSA wound infection postop; diabetes mellitus type 1; anxiety disorder; hypertension; hyperlipidemia; asthma persistent mild; Patient Condition: Fair Consults Infectious disease; internal medicine; Procedures POSTOPERATIVE DIAGNOSES: L5-S1 spinal stenosis with epidural lipomatosis complicated with intraoperative dural tear with subsequent formation of the pseudomeningocele witjh dural repair on March now with a post-operative wound infection OPERATION PERFORMED: Irrigation and debridement of L5-S1 lumbar wound SURGEON: Richard Horvath MD PICC line insertion Hx of Present Illness Diagnosis: L5-S1 spinal stenosis with epidural lipomatosis complicated with intraoperative dural tear with subsequent formation of the pseudomeningocele now with a post-operative wound infection Procedures performed: L5-S1 decompression on January 30, 2017 with subsequent formation of persistent CSF leak and formation of pseudomeningocele status post dural repair on April 08, 2017 and s/p I&D lumbar wound 03/23/2017 History of present illness: Eduardo is a pleasant 36-year-old male who has been seen by me for his chronic history of low back and bilateral leg pain. He was found to have severe spinal stenosis at L5-S1 secondary to epidural lipomatosis. His symptoms had failed to improve with a conservative course of treatment including physical therapy and an epidural steroid injection. Given that his symptoms had been limiting his quality of life and that he failed a conservative course of treatment, he underwent an L5-S1 decompression procedure on January 30, 2017. His surgery was complicated by a small pinhole dural tear which was repaired with a patch and DuraSeal. He was also placed on 48 hours of bedrest after this. He was initially doing well postoperatively. He was seen 2 weeks postoperatively at which point his incision was well-healed and he was not complaining of any significant headaches. He reports that about 3-4 weeks after his surgery, he was doing some heavy lifting when he noticed some positional headaches. He was evaluated in our office for his 4 week follow-up appointment. At this time, he reported some increased frequency in his headaches which were better lying down and worse with standing and walking. He was not noted to have any neurological deficits on physical exam. His incision was well-healed. He did have some persistent low back pain. An MRI of the lumbar spine with and without contrast was ordered on March 02 to evaluate for a possible persistent CSF leak/pseudomeningocele. This MRI was performed on March 05, 2017. Upon review of this MRI, patient was found to have a pseudomeningocele and operative management was planned. During this time patient has denied any fevers or chills. His wound has remained clean dry and intact. He underwent repair of a dural tear on April 08, 2017. he was seen for a wound check on postop day 12 and was found to have some mild dehiscence on the inferior aspect of his wound. there is no significant drainage at the wound at this time. he was also noted to be afebrile . he denied any fevers or chills during this time. he was told to follow-up today ( postoperative day 14) for repeat wound check after being started on Keflex. During the clinic visit today , patient was noted to be febrile and had increased wound dehiscence. he was also noted to have mild purulent drainage from the wound. Patient was admitted to the hospital and scheduled for a irrigation and debridement of his lumbar wound . he has been started on IV fluids . Blood and urine cultures have also been obtained. a sepsis protocol has been initiated. on admission to the ER his Tmax was 100. He denies any saddle anaesthesia. He denies any issues with bowel or bladder control. The patient does admit to smoking which he had been instructed to stop before and after the prior surgical procedure given the increased risks of infection. PAST MEDICAL HISTORY: Anxiety, Type 1 diabetes, hypercholesterolemia, kidney disease PAST SURGICAL HISTORY: Surgery for broken ribs, surgery for thoracic outlet syndrome, L5-S1 decompression complicated with dural tear and subsequent development of pseudomeningocele CURRENT MEDICATIONS: Chantix, bupropion, NovoLog, simvastatin, alprazolam, ibuprofen, pro-air, tramadol, hydrocodoneacetaminophen, meloxicam, Synthroid, with an appropriate, valacyclovir, trazodone, cyclobenzaprine, Percocet p.r.n. pain ALLERGIES: Dilantin, dilaudid SOCIAL HISTORY: positive for tobacco use . FAMILY HISTORY: Noncontributory REVIEW OF SYSTEMS: The review of systems as documented today in the medical record is remarkable for the positive orthopedic problems discussed above and is otherwise non-contributory with respect to Constitutional, ENT, Cardiovascular, , Skin, Neurologic, Endocrine, Hematologic, Psychiatric, Gastrointestinal, Respiratory, Eyes and Allergic/Immunologic systems except as noted on the intake form. OBJECTIVE FINDINGS: Blood pressure 112/77, HR 110, temperature 100.6 GENERAL: The patient is a well-developed, well nourished male in no acute distress. HEENT: Normocephalic, atraumatic. Pupils equally round, reactive to light. Extraocular motion is intact. NECK: Supple without lymphadenopathy. Trachea midline. RESPIRATIONS: Regular and unlabored without abnormal intercostal retractions or abnormal diaphragmatic movement. CARDIOVASCULAR: No cyanosis, clubbing, or edema. SKIN: Without lesions, masses, or rash. PSYCHIATRIC: Normal in mild distress. LUMBAR EXAMINATION: of the lower extremities is grossly intact. His posterior midline incision shows increased erythema and some mild purulent drainage. There is increased amount of dehiscence measuring approximately 1-1/2 cm. Patient also has increased tenderness around the wound. MRI of the lumbar spine performed on November 05, 2016 was reviewed. IMPRESSION L5-S1: There is a 3 mm broad-based central protrusion without canal or lateral recess stenosis. Disc bulge mildly narrows the left greater than right neural foramen. There is epidural lipomatosis compresses the thecal sac. The latter finding is progressive in comparison to previous with further compression. MRI of the lumbar spine performed on March 03, 2017 at [facility] reviewed. Freshened: Patient has a 3 mm broad-based central protrusion which does not cause significant canal or lateral recess stenosis. He has interval L5 laminectomy with development of a pseudomeningocele. DIAGNOSES: 1. L5-S1 spinal stenosis with epidural lipomatosis status post decompression complicated by pseudomeningocele status post dural repair now with postoperative wound infection TREATMENT RECOMMENDATIONS: A thorough discussion regarding the patients diagnosis is discussed in detail. All patients questions were answered prior to the conclusion of this visit. Patients is currently 14 days status post dural repair for a pseudomeningocele after a prior decompression procedure. His headaches have resolved. He currently has increased erythema and some purulent drainage with some dehiscence of his wound. He has also developed a fever. The Keflex and superficial debridement of the last visit has have failed to help with his symptoms. He is scheduled to under an I&D of the wound today. We will start him on empiric coverage with Vancomycin and Zosyn for his wound infection after obtaining cultures. We will consult ID and medicine to help with management of this patient Hospital Course No acute changes overnight. Patient is awake, looks comfortable, no fevers, family at bedside Antimicrobials: Vancomycin and rifampin Microbiology: Wound cultures growing MRSA Physical examination: Well-developed middle-aged white man who is alert in no distress. Head atraumatic normocephalic sclera nonicteric. Neck is supple, trachea midline. Chest rise symmetrical breath sounds diminished to bases. Heart: S1-S2. Abdomen soft, bowel tones present. Extremities without cyanosis. Assessment: 1. Systemic inflammatory response syndrome secondary to postoperative MRSA wound infection 2. Status post L5-S1 decompression on January 30, 2017 3. Status post CSF leak repair on March 09 and I&D of lumbar wound on March 23, 2017 4. Diabetes Plan: Clinically stable, continue Vanco and rifampin till 04/06 then change to PO Bactrim for 2 more weeks, follow Ortho recommendations, january f/ with Dr Narvaez Discussed with patient and family at bedside 36-year-old single male recently who is admitted with a wound infection. As per the spinal surgeon in concert with the infectious disease was determined this was superficial infection and not a deep infection. As such his antibiotic course will be adjusted properly for this. Please note this is an MRSA infection. He is now being discharged home on IV antibiotics for 2 weeks to be followed by 2 weeks of oral antibiotics. He has no known other types of communicable diseases his rehabilitation potential is fair Home Meds Reported Medications Alprazolam* (Xanax*) 2 Mg Tablet, 2 MG PO TID, TAB 03/23/17 Insulin* PUMP (Insulin* PUMP) 1 Each Pump.resvr, 1 EACH MC . DIRECTED, EA PER PT BROUGHT [facility] RX FROM HOME WILL PROVIDE MEDS TO PHARMACY PER PT REQUEST 03/09/17 Simvastatin* (Simvastatin*) 80 Mg Tablet, 40 MG PO QHS, #30 TAB 01/30/17 Lisinopril* (Lisinopril*) 20 Mg Tablet, 20 MG PO DAILY, #30 TAB 01/30/17 Levothyroxine Sodium* (Levothyroxine Sodium*) 175 Mcg Tablet, 175 MCG PO BEFORE BREAKFAST, #30 TAB 01/30/17 Bupropion Hcl* (Bupropion XL*) 300 Mg Tab.sr.24h, 300 MG PO DAILY, TAB.SA 01/30/17 Trazodone Hcl* (Trazodone Hcl*) 50 Mg Tablet, 50 MG PO QHS, #30 TAB 01/30/17 Gabapentin* (Gabapentin*) 300 Mg Capsule, 600 MG PO DAILY Y for PM, #180 CAP 01/30/17 Gabapentin* (Gabapentin*) 300 Mg Capsule, 300 MG PO AM, #60 CAP 01/30/17 Valacyclovir Hcl* (Valacyclovir Hcl*) 500 Mg Tablet, 1 GM PO DAILY, TAB 01/30/17 Cyclobenzaprine Hcl* (Cyclobenzaprine Hcl*) 10 Mg Tablet, 10 MG PO TID, #90 TAB 01/30/17 Discontinued Reported Medications Alprazolam* (Alprazolam*) 1 Mg Tablet, 1 MG PO TID, TAB 01/30/17 Primary Care Provider Not On Staff Doctor Pending Labs Laboratory Tests Test 03/27/17 14:29 03/27/17 15:00 03/27/17 15:30 03/27/17 18:42 Bedside Glucose 45mg/dL (70-220) 68mg/dL (70-220) 117mg/dL (70-220) 135mg/dL (70-220) Test 03/27/17 20:00 03/27/17 21:19 03/28/17 02:17 03/28/17 02:37 Vancomycin Level Trough 14.7ug/ml (10.0-20.0) Bedside Glucose 124mg/dL (70-220) 52mg/dL (70-220) 81mg/dL (70-220) Test 03/28/17 08:55 03/28/17 11:23 Bedside Glucose 70mg/dL (70-220) 134mg/dL (70-220) Microbiology Date/Time Source Procedure Growth Status 03/27/17 17:50 Feces Clostridium difficile Toxin Assay - Final Complete DANA SANTOS MD Mar 28, 2017 13:18
[2017-03-28] MEDS ORDERED: SULF1TAB31 PO (13:23)
[2017-03-28] MEDS ORDERED: RIFA300C3 PO (13:23)
--- NOTE | 2017-03-28 13:48 | RADRPT ---
Vent Rate: 68 bpm RR Interval: 0 msec RI Interval: 138 msec QRS Duration: 86 msec QT Interval: 376 msec QTC Interval: 399 msec P-R-T [place]: 52 - 70 - 65 degrees Normal sinus rhythm Septal infarct , age undetermined Abnormal ECG Electronically Signed By: Mino Shah [id number]
[2017-03-28] MEDS ORDERED: VANCOMYCIN 1.25 GM in SOD CHLORIDE 0.9% 250 ML IVPB SCH (17:00)
[2017-04-07] MEDS ORDERED: TRIMETHOPRIM/SULFAMETHOX (DS) TAB PO SCH (21:00)
== END 2017-03-28 14:05 | disposition home health service (06) | DRG 856 ==
LOC: E/R 10:01 → SDS 14:14 → TEL 22:35 → SDS 22:35 → TEL 03-24 16:48
PROVIDERS: ADMIT Orthopaedic Surgery; ATTEND Orthopaedic Surgery
PROC: 02HV33Z Insertion of Infusion Device into Superior Vena Cava, Percutaneous Approach (ICD-10-PCS; 2017-03-23)
PROC: 0JB70ZZ Excision of Back Subcutaneous Tissue and Fascia, Open Approach (ICD-10-PCS; principal; 2017-03-23 18:00)
DX: T81.4XXA Infection following a procedure, initial encounter (principal); A41.02 Sepsis due to Methicillin resistant Staphylococcus aureus; I47.2 Ventricular tachycardia; G97.82 Other postprocedural complications and disorders of nervous system; J45.30 Mild persistent asthma, uncomplicated; G96.19 Other disorders of meninges, not elsewhere classified; Z96.41 Presence of insulin pump (external) (internal); I10 Essential (primary) hypertension; F41.8 Other specified anxiety disorders; F34.1 Dysthymic disorder; F17.200 Nicotine dependence, unspecified, uncomplicated; F32.9 Major depressive disorder, single episode, unspecified; E78.5 Hyperlipidemia, unspecified; E10.65 Type 1 diabetes mellitus with hyperglycemia; E03.9 Hypothyroidism, unspecified; Y83.8 Other surgical procedures as the cause of abnormal reaction of the patient, or of later complication, without mention of misadventure at the time of the procedure; Z98.890 Other specified postprocedural states
CPT/HCPCS: 36415; 36569; 71010; 76937; 80048; 80053; 80202; 82962; 83605; 83735; 84443; 84484; 85014; 85018; 85025; 85610; 85651; 85730; 87040; 87070; 87075; 87081; 87102; 87116; 93005; 93306; 96374; 96375; 97116; 97162; 97530; J0131; J0461; J1100; J2250; J2270; J2405; J2543; J2710; J3010; J3370; J3475; J7030; J7050; J7999

== ENCOUNTER 2017-04-16 23:59 | Inpatient (IN) | payer MEDICAID ==
[~2017-04-16] VITALS: Ht 170.2 cm; Wt 86.2 kg
[~2017-04-16 23:59] MED LIST changes: -ALPR1TAB7 PO; +ALPR2TAB PO; -ATROPINE 1 MG/10 ML SYRINGE ONE; -EPHEDrine SULFATE 50 MG/5 ML SYG ONE; +RIFA300C3 PO; -SUCCINYLCHOLINE CHLORIDE 100 MG/5 ML SYG IV ONE; +SULF1TAB31 PO
[2017-04-17] VITALS (7 sets, daily range): BP systolic 109–127; BP diastolic 62–74; PULSE 90–94; RESP 18–20; TEMP 98.9; Ht 170.2 cm; Wt 86.2 kg
[2017-04-17] MEDS ORDERED: CEFEPIME 2GM/50 ML (PMX) 50 ML IVPB STA (00:11)
[2017-04-17] MEDS ORDERED: SODIUM CHLORIDE 0.9% 1L BAG IV* STA (00:11)
[2017-04-17] MEDS ORDERED: VANCOMYCIN 1 GM (PMX) 250 ML IVPB ONE (00:30)
[2017-04-17 01:00] LABS: BASOPHIL # 0.1 10^3/ul (0.0-0.1); EOSINOPHILS # 0.1 10^3/ul (0.0-0.5); HEMATOCRIT 42.5 % (42.0-52.0); HEMOGLOBIN 14.3 g/dl (14.0-18.0); LYMPHOCYTES # 0.8 10^3/ul (0.8-2.9); LYMPHOCYTES % 15.7 % (15.0-51.0); MEAN CORPUSCULAR HEMOGLOBIN 29.9 pg (29.0-33.0); MEAN CORPUSCULAR HGB CONC 33.6 g/dl (32.0-37.0); MEAN CORPUSCULAR VOLUME 88.7 fl (82.0-101.0); MEAN PLATELET VOLUME 12.4 fl (7.4-10.4); MONOCYTE # 0.9 10^3/ul (0.3-0.9); MONOCYTES % 17.6 % (0.0-11.0); NEUTROPHIL # 3.4 10^3/ul (1.6-7.5); NEUTROPHILS % 64.3 % (39.0-77.0); PLATELET COUNT 159 10^3/UL (140-415); RED BLOOD COUNT 4.79 10^6/ul (4.70-6.10); RED CELL DISTRIBUTION WIDTH 13.9 % (11.5-14.5); WHITE BLOOD COUNT 5.2 10^3/ul (4.8-10.8)
[2017-04-17] MEDS ORDERED: ONDANSETRON 4 MG INJ IV STA (01:12)
[2017-04-17] MEDS ORDERED: morphine 4 MG/ML VIAL IV STA (01:12)
[2017-04-17 01:15] LABS: ALBUMIN 4.3 g/dl (3.3-4.9); ALBUMIN/GLOBULIN RATIO 1.59; BILIRUBIN,INDIRECT 0.1 mg/dl (0-1.1); BILIRUBIN,TOTAL 0.1 mg/dl (0.2-1.3); CALCIUM 9.9 mg/dl (8.4-10.2); CREATININE 2.23 mg/dl (0.61-1.24); POTASSIUM 4.9 mmol/L (3.5-5.1)
[2017-04-17 01:26] LABS: INR 0.91; PROTIME 12.3 Sec (12.2-14.2)
[2017-04-17 01:27] LABS: PARTIAL THROMBOPLASTIN TIME 26.4 Sec (25.0-35.0)
[2017-04-17 01:43] LABS: ADD UMIC YES; UR ASCORBIC ACID NEGATIVE (NEGATIVE); UR BILIRUBIN (Dip) NEGATIVE (NEGATIVE); UR BLOOD (Dip) NEGATIVE (NEGATIVE); UR CLARITY SLIGHTLY CLOUDY (CLEAR); UR COLOR YELLOW (YELLOW); UR GLUCOSE (Dip) 3+ mg/dL (NEGATIVE); UR KETONES (Dip) TRACE mg/dL (NEGATIVE); UR LEUKOCYTE ESTERASE (Dip) NEGATIVE Leu/ul (NEGATIVE); UR NITRITE (Dip) NEGATIVE (NEGATIVE); UR RBC 1 /HPF (0-5); UR SPECIFIC GRAVITY (Dip) 1.025 (1.003-1.030); UR TOTAL PROTEIN (Dip) 1+ mg/dl (NEGATIVE); UR UROBILINOGEN (Dip) NEGATIVE (NEGATIVE)
--- NOTE | 2017-04-17 02:19 | RADRPT ---
PROCEDURE: XR Chest. CLINICAL INDICATION: Possible sepsis. TECHNIQUE: Single frontal view of the chest. COMPARISON: None. FINDINGS: Mild cardiomegaly. Mild pulmonary vascular congestion. The lungs are otherwise clear. No signs of pleural fluid or pneumothorax are seen. The osseous structures and soft tissues are unremarkable. IMPRESSION: Mild cardiomegaly and pulmonary vascular congestion. RPTAT: [facility] Physician Luis Alberto Date Time Electronically viewed and signed by Physician Luis Alberto on 04/17/2017 02:19 RS/
[2017-04-17] MEDS ORDERED: ACETAMINOPHEN 325 MG TAB PO PRN ×2 (03:00→05:30)
[2017-04-17] MEDS ORDERED: ONDANSETRON 4 MG INJ IV PRN (03:00)
--- NOTE | 2017-04-17 03:46 | ERA ---
ER Documentation Chief Complaint Date/Time DATE: 04/17/17 TIME: 03:40 Chief Complaint Fever, ALOC and dizzy today. Fell at 1400, "passed out", witnessed HPI This 36-year-old male was sent in by his spinal surgeon, , for fever with recent lumbar spinal surgery. Patient is a diabetic male with history of multiple sinus surgeries. The worry was for possible spinal infection. 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 He states that at home his fever was 101.4. He did take Tylenol specifically for the fever. Still has significant back pain and intermittent pain down his legs. Has had some trouble urinating today as well. ROS All systems reviewed and are negative except as per history of present illness. Medications Home Meds Active Scripts Sulfamethoxazole/Trimethoprim* (Bactrim Ds* Tablet) 1 Each Tablet, 1 TAB PO BID for 14 Days, #28 TAB Starts on April 07 finish 14 days later Prov:DANA SANTOS MD 03/28/17 Rifampin* (Rifampin*) 300 Mg Capsule, 600 MG PO DAILY for 10 Days, CAP Prov:DANA SANTOS MD 03/28/17 Reported Medications Alprazolam* (Xanax*) 2 Mg Tablet, 2 MG PO TID, TAB 03/23/17 Insulin* PUMP (Insulin* PUMP) 1 Each Pump.resvr, 1 EACH MC . DIRECTED, EA PER PT BROUGHT [facility] FROM HOME WILL PROVIDE MEDS TO PHARMACY PER PT REQUEST 03/09/17 Simvastatin* (Simvastatin*) 80 Mg Tablet, 40 MG PO QHS, #30 TAB 01/30/17 Lisinopril* (Lisinopril*) 20 Mg Tablet, 20 MG PO DAILY, #30 TAB 01/30/17 Levothyroxine Sodium* (Levothyroxine Sodium*) 175 Mcg Tablet, 175 MCG PO BEFORE BREAKFAST, #30 TAB 01/30/17 Bupropion Hcl* (Bupropion XL*) 300 Mg Tab.sr.24h, 300 MG PO DAILY, TAB.SA 01/30/17 Trazodone Hcl* (Trazodone Hcl*) 50 Mg Tablet, 50 MG PO QHS, #30 TAB 01/30/17 Gabapentin* (Gabapentin*) 300 Mg Capsule, 600 MG PO DAILY Y for PM, #180 CAP 01/30/17 Gabapentin* (Gabapentin*) 300 Mg Capsule, 300 MG PO AM, #60 CAP 01/30/17 Valacyclovir Hcl* (Valacyclovir Hcl*) 500 Mg Tablet, 1 GM PO DAILY, TAB 01/30/17 Cyclobenzaprine Hcl* (Cyclobenzaprine Hcl*) 10 Mg Tablet, 10 MG PO TID, #90 TAB 01/30/17 Allergies Allergies: Coded Allergies: insulin aspart (Verified Allergy, Unknown, rash, resistance to SQ, 03/26/17 ) hydromorphone (Verified Adverse Reaction, Unknown, 03/26/17) PT REPORTED ALLERGY TO HYDROMORPHONE. PER PHARMACIST DISCUSSION WITH DR SINGH- PT IS NOT ALLERGIC TO DILAUDID. HE JUST DID NOT LIKE IT WHEN HE GOT IT LAST TIME. HE IS OK TAKING MORPHINE, PERCOCET AND OTHER PAIN MEDS. PMhx/Soc History of Surgery: Yes (LAMINECTOMY, RIGHT RIB RESECTION, CYST REMOVAL) Anesthesia Reaction: No Hx Neurological Disorder: No Hx Respiratory Disorders: No Hx Cardiac Disorders: No Hx Psychiatric Problems: No Hx Miscellaneous Medical Probl: Yes (Back surgery in november 2016, and beginning of march. ) Hx Alcohol Use: Yes (social) Hx Substance Use: No Hx Tobacco Use: Yes Smoking Status: Current every day smoker Physical Exam Vitals Vital Signs Date Time Temp Pulse Resp B/P Pulse Ox O2 Delivery O2 Flow Rate FiO2 04/17/17 03:00 98.2 93 20 97/60 94 Room Air 04/17/17 00:58 103 25 93/62 95 Room Air 04/17/17 00:04 99.6 127 18 93/57 97 Physical Exam Const: [] Mild distress Head: Atraumatic Eyes: Normal Conjunctiva ENT: Normal External Ears, Nose and Mouth. Neck: Full range of motion..~ No meningismus. Resp: Clear to auscultation bilaterally Cardio: Regular rate and rhythm, no murmurs Abd: Soft, non tender, non distended. Normal bowel sounds Skin: No petechiae or rashes Back: Healing spinal surgery wounds, deferred agitation or deep palpation of the area. No obvious purulence. Ext: No cyanosis, or edema, full motor function of bilateral lower extremities, distal pulses and Neur: Awake and alert and oriented 3, no focal deficits Psych: Normal Mood and Affect Result Diagram: 04/17/17 0025 04/17/17 0025 Results 24 hrs Laboratory Tests Test 04/17/17 00:11 04/17/17 00:25 Urine Color YELLOW Urine Clarity SLIGHTLY CLOUDY Urine pH 5.0 Urine Specific [place] 1.025 Urine Ketones TRACEmg/dL Urine Nitrite NEGATIVEmg/dL Urine Bilirubin NEGATIVEmg/dL Urine Urobilinogen NEGATIVEmg/dL Urine Leukocyte Esterase NEGATIVELeu/ul Urine Microscopic RBC 1/HPF Urine Microscopic WBC 2/HPF Urine Hemoglobin NEGATIVEmg/dL Urine Glucose 3+mg/dL Urine Total Protein 1+mg/dl White Blood Count 5.210^3/ul Red Blood Count 4.7910^6/ul Hemoglobin 14.3g/dl Hematocrit 42.5% Mean Corpuscular Volume 88.7fl Mean Corpuscular Hemoglobin 29.9pg Mean Corpuscular Hemoglobin Concent 33.6g/dl Red Cell Distribution Width 13.9% Platelet Count 14078^3/UL Mean Platelet Volume 12.4fl Neutrophils % 64.3% Lymphocytes % 15.7% Monocytes % 17.6% Eosinophils % 1.0% Basophils % 1.0% Nucleated Red Blood Cells % 0.0/100WBC Neutrophils # 3.410^3/ul Lymphocytes # 0.810^3/ul Monocytes # 0.910^3/ul Eosinophils # 0.110^3/ul Basophils # 0.110^3/ul Nucleated Red Blood Cells # 0.010^3/ul Prothrombin Time 12.3Sec Prothrombin Time Ratio 1.0 INR International Normalized Ratio 0.91 Activated Partial Thromboplast Time 26.4Sec Sodium Level 134mmol/L Potassium Level 4.9mmol/L Chloride Level 93mmol/L Carbon Dioxide Level 26mmol/L Anion Gap 20 Blood Urea Nitrogen 20mg/dl Creatinine 2.23mg/dl Glucose Level 260mg/dl Lactic Acid Level 1.3mmol/L Calcium Level 9.9mg/dl Total Bilirubin 0.1mg/dl Direct Bilirubin 0.00mg/dl Indirect Bilirubin 0.1mg/dl Aspartate Amino Transf (AST/SGOT) 13IU/L Alanine Aminotransferase (ALT/SGPT) 41IU/L Alkaline Phosphatase 58IU/L Total Protein 7.0g/dl Albumin 4.3g/dl Globulin 2.70g/dl Albumin/Globulin Ratio 1.59 Current Medications Medications (Trade) Dose Ordered Sig/Ruth Route PRN Reason Start Time Stop Time Status Last Admin Dose Admin Sodium Chloride 2640 ml 2,640 ml BOLUS OVER 2 HOURS STAT IV* 04/17/17 00:11 04/17/17 00:14 DC 04/17/17 00:49 Cefepime HCl 50 ml @ 100 mls/hr ONCE STAT IVPB 04/17/17 00:11 04/17/17 00:40 DC 04/17/17 00:50 Vancomycin HCl (Vancocin) 250 ml @ 125 mls/hr ONCE ONCE IVPB 04/17/17 00:30 04/17/17 02:29 DC 04/17/17 02:38 Morphine Sulfate (morphine) 4 mg ONCE STAT IV 04/17/17 01:12 04/17/17 01:13 DC 04/17/17 01:26 Ondansetron HCl (Zofran Inj) 4 mg ONCE STAT IV 04/17/17 01:12 04/17/17 01:13 DC 04/17/17 02:38 Ondansetron HCl (Zofran Inj) 4 mg BRIDGE ORDER PRN IV NAUSEA AND/OR VOMITING 04/17/17 03:00 04/18/17 02:59 Acetaminophen (Tylenol Tab) 650 mg ER BRIDGE PRN PO MILD PAIN/FEVER 04/17/17 03:00 04/18/17 02:59 Procedures/MDM Possible lumbar spinal or soft tissue infection status post recent surgery. Patient also has acute kidney injury dehydration. Immediately given vancomycin and cefepime for possible infection and history of MRSA. Is hydrated with 30 cc /kg of normal saline. Was able to produce urine. Given 4 mg of morphine for his pain which helped the pain greatly. Is also given Zofran for nausea as he says that he gets nausea with vancomycin. Ambulatory in ER with good leg strength. With lack of constellation of symptoms seems less likely patient has cauda equina syndrome though he may have this to some degree. MRI with and without contrast is pending but is being done tonight to look for any signs of cord compression or spinal abscess. Patient's family request being admitted to Dr. Poole. Place a call to Dr. Poole who is very familiar with the patient and agrees to admit him. I am admitting to the medical surgical floor as his vital signs have been stable. Patient does not meet sepsis criteria. Departure Diagnosis: Primary Impression: Acute kidney injury Additional Impressions: Postoperative fever Hyperglycemia due to type 2 diabetes mellitus Postoperative pain Condition: Serious DANA STANTON DO Apr 17, 2017 03:46
--- NOTE | 2017-04-17 04:18 | RADRPT ---
AMENDMENT: 04/17/2017 5:49:50 AM Minerva Saldana MD Additional historical information has been made available. The patient has also had prior pseudomen ingocele repair. Residual or recurrent pseudomeningocele cannot be excluded. This was discussed by telephone with Dr. Dinero on the date of examination at 05:27 a.m. PROCEDURE: MRI lumbar spine without and with contrast CLINICAL INDICATION: Recent spinal surgery with fever, leg weakness, and pain. TECHNIQUE: Sagittal T1, T2, and STIR, axial T1 and T2-weighted images before contrast. Sagittal an d axial fat saturated T1-weighted images after injection of 10 ccs of Magnevist intravenous contrast material. COMPARISON: Intraoperative views from 01/30/2017 FINDINGS: There is minimal L5-S1 retrolisthesis. Alignment is otherwise anatomic. Vertebral body and disk sp nguyen heights are preserved. The conus is unremarkable in appearance. There is mild disk dessicatio n at L5-S1. Anterior osteophytes with minimal disk bulges most prominent at T12-L1 and L1-2. At T12-L1, no disk protrusion or extrusion is seen. No canal stenosis or significant foraminal narr owing. At L1-2, no disk protrusion or extrusion is seen. No canal stenosis or significant foraminal narrow ing. Minimal central and left paracentral disk bulge. At L2-3, no disk protrusion or extrusion is seen. No canal stenosis or significant foraminal narrow ing. At L3-4, no disk protrusion or extrusion is seen. No canal stenosis or significant foraminal narrow ing. At L4-5, no disk protrusion or extrusion is seen. No canal stenosis or significant foraminal narrow ing. At L5-S1, there are changes from prior right laminectomy. There is heterogeneously enhancing scar/g ranulation tissue in the posterior paraspinal musculature and subcutaneous fat. There is a well-def ined fluid collection within the laminectomy defect and in the posterior paraspinal musculature. Th is measures 2.4 cm craniocaudad by 2.2 cm transverse by 2.6 cm AP. The fluid collection is external to the posterior thecal sac. There is some enhancing granulation tissue along the posterior aspect of the thecal sac but no definite epidural abscess is seen. There is not marked enhancement of the L5-S1 disk or irregularity of the endplates to suggest diskitis. There is a small diffuse posterior disk protrusion at L5-S1. No disk extrusion is seen. Mild bilateral foraminal narrowing. There i s a small amount of fluid at the junction of the posterior paraspinal musculature and subcutaneous f at which measures 10 x 8 mm. Edema of the subcutaneous fat and multiple small low signal foci likely postoperative air or debris. Edema of the right greater than left posterior paraspinal muscu lature. IMPRESSION: Postoperative changes at L5-S1 with well-defined fluid collection in the posterior paraspinal muscul ature and surgical defect which is external to the thecal sac. Infection of this fluid collection i s not excluded. Small diffuse L5-S1 disk protrusion without extrusion. No definite epidural abscess or evidence of osteomyelitis - diskitis. Edema and postoperative change of the subcutaneous fat an d posterior paraspinal musculature. RPTAT: [facility] Physician Ainsley Date Time Electronically viewed and signed by Physician Ainsley on 04/17/2017 05:50 SHARONA/
[2017-04-17] MEDS ORDERED: GABAPENTIN 300 MG CAP PO PRN (05:30)
[2017-04-17] MEDS ORDERED: BISACODYL 10 MG SUPP PR PRN (05:30)
[2017-04-17] MEDS ORDERED: NACL 0.9% 3 ML SYG IV SCH (05:30)
[2017-04-17] MEDS ORDERED: ONDANSETRON 4 MG TAB PO PRN (05:30)
[2017-04-17] MEDS: ALPRAZOLAM 0.25 MG TAB PO SCH ×2 (06:09→14:00)
[2017-04-17] MEDS: morphine 2 MG INJ IV PRN ×4 (06:09→20:10)
--- NOTE | 2017-04-17 07:05 | CONS ---
Date/Time of Note Date/Time of Note DATE: 04/17/17 TIME: 06:42 Consultation Date/Type/Reason Admit Date/Time Apr 17, 2017 at 02:38 Initial Consult Date Type of Consultation: Orthopaedic Spine Note 24 HR Interval Summary Free Text/Dictation S: 36 yo male who has a past medical history significant for type 1 diabetes and anxiety. He had a L5-S1 laminectomy for spinal stenosis with epidural lipomatosis that was complicated with a dural tear on 01/12/2017. He subsequently underwent repair of the dural defect on 03/09/2017. The dural repair procedure was complicated with a post-operative MRSA infection. He underwent I&D of his lumbar wound on 03/23/2017. He has been followed by ID physician Dr. Narvaez. He has completed a 2 week course of IV abx and has been on bactrim PO. He presented to the ER yesterday because of fevers, nausea and malaise. A septic protocol was initiated. Patient was found to be very dehydrated. He was started on IV fluids. An MRI of the lumbar spine was ordered to evaluate for possible discitis or epidural abscess. He had a low grade temp of 99.6 on admission. He had no acute events over-night. He denies any saddle anesthesia, he denies any issues with bowel or bladder control. He denies any headaches. He has been ambulating out of bed without difficulty. He denies any headaches. He denies any headaches. He does admit to smoking 5 cigarettes/day. He has been counseled repeatedly since the first procedure to stop smoking given increased risks of complications. He has once again agreed to stop. O: Gen: AAOx3, NAD Spine: 4+/5 b/l KE/TA/GS/EHL, +SILT L3-S1 nerve distributions. Posterior midline incision is well healed without erythema or drainage Labs: WBC: 5.2 (Neutrophils: 64.3) H/H 14.3/42.5 BUN/Creat 20/2.23 Imaging: Chest XR: Mild cardiomegaly and pulmonary vascular congestion. MRI of Lumbar spine w/ and w/o contrast: 2.2 x 2 cm fluid collection at laminectomy site that does not communicate with the dura. No evidence of epidural abscess or diskitis. A/P:36 yo Male who has a past medical history significant for type 1 diabetes and anxiety. He had a L5-S1 laminectomy for spinal stenosis with epidural lipomatosis that was complicated with a dural tear on 01/12/2017. He subsequently underwent repair of the dural defect on 03/09/2017. The dural repair procedure was complicated with a post-operative MRSA infection. He underwent I&D of his lumbar wound on 03/23/2017. Pt admitted for observation for new onset fever. -MRI of Lumbar spine shows post-surgical fluid collection consistent with seroma. We will follow-up ESR, CRP to help decide if CT guided IR drainage will be needed to be performed to rule-out infected seroma. Patient's WBC 5.2. He is currently afebrile. -Appreciate med recs for elevated creat 2.23 (likely secondary to dehydration) -PT Exam/Review of Systems Vital Signs Vitals Vital Signs Date Time Temp Pulse Resp B/P Pulse Ox O2 Delivery O2 Flow Rate FiO2 04/17/17 05:11 98.8 94 18 112/62 98 04/17/17 04:20 Room Air Intake and Output 04/16/17 04/16/17 04/17/17 15:00 23:00 07:00 Intake Total 2690 ml Balance 2690 ml Results Result Diagram: 04/17/17 0025 04/17/17 0025 Results 24 hrs Laboratory Tests Test 04/17/17 00:11 04/17/17 00:25 04/17/17 04:37 Urine Color YELLOW Urine Clarity SLIGHTLY CLOUDY A Urine pH 5.0 Urine Specific [place] 1.025 Urine Ketones TRACE A Urine Nitrite NEGATIVE Urine Bilirubin NEGATIVE Urine Urobilinogen NEGATIVE Urine Leukocyte Esterase NEGATIVE Urine Microscopic RBC 1 Urine Microscopic WBC 2 Urine Hemoglobin NEGATIVE Urine Glucose 3+ H Urine Total Protein 1+ H White Blood Count 5.2 # Red Blood Count 4.79 # Hemoglobin 14.3 # Hematocrit 42.5 # Mean Corpuscular Volume 88.7 Mean Corpuscular Hemoglobin 29.9 Mean Corpuscular Hemoglobin Concent 33.6 Red Cell Distribution Width 13.9 Platelet Count 159 # Mean Platelet Volume 12.4 H Neutrophils % 64.3 Lymphocytes % 15.7 Monocytes % 17.6 H Eosinophils % 1.0 Basophils % 1.0 Nucleated Red Blood Cells % 0.0 Neutrophils # 3.4 Lymphocytes # 0.8 Monocytes # 0.9 Eosinophils # 0.1 Basophils # 0.1 Nucleated Red Blood Cells # 0.0 Prothrombin Time 12.3 Prothrombin Time Ratio 1.0 INR International Normalized Ratio 0.91 Activated Partial Thromboplast Time 26.4 Sodium Level 134 L Potassium Level 4.9 Chloride Level 93 L Carbon Dioxide Level 26 Anion Gap 20 H Blood Urea Nitrogen 20 Creatinine 2.23 H Glucose Level 260 H Lactic Acid Level 1.3 1.3 Calcium Level 9.9 Total Bilirubin 0.1 L Direct Bilirubin 0.00 Indirect Bilirubin 0.1 Aspartate Amino Transf (AST/SGOT) 13 L Alanine Aminotransferase (ALT/SGPT) 41 Alkaline Phosphatase 58 Total Protein 7.0 Albumin 4.3 Globulin 2.70 Albumin/Globulin Ratio 1.59 Medications Medications Current Medications Ondansetron HCl (Zofran Tab) 4 mg Q6H PRN PO NAUSEA AND/OR VOMITING; Start 04/17 at 05:30 Acetaminophen (Tylenol Tab) 650 mg Q6H PRN PO PAIN LEVEL 1-3 OR FEVER; Start at 05:30 Oxycodone/ Acetaminophen (Percocet (5/ 325)) 1 tab Q6H PRN PO MODERATE PAIN LEVEL 4-6; Start 04/17/17 at 05:30 Morphine Sulfate (morphine) 2 mg Q4H PRN IV SEVERE PAIN LEVEL 7-10 Last administered on 04/17/17t 06:09; Admin Dose 2 MG; Start 04/17/17 at 05:30 Bisacodyl (Dulcolax Supp) 10 mg DAILY PRN [place] CONSTIPATION; Start 04/17/17 at 05: 30 Famotidine (Pepcid) 20 mg DAILY PO ; Start 04/17/17 at 09:00 Bupropion HCl (Wellbutrin Xl) 300 mg DAILY PO ; Start 04/17/17 at 09:00 Cyclobenzaprine HCl (Flexeril) 10 mg TID PO ; Start 04/17/17 at 09:00 Gabapentin (Neurontin) 300 mg AM PO ; Start 04/17/17 at 09:00 Gabapentin (Neurontin) 600 mg DAILY PRN PO PM; Start 04/17/17 at 05:30; Status UNV Lisinopril (Zestril) 20 mg DAILY PO ; Start 04/17/17 at 09:00 Rifampin (Rifampin) 600 mg DAILY PO ; Start 04/17/17 at 09:00 Trazodone HCl (Desyrel) 50 mg QHS PO ; Start 04/17/17 at 21:00 Valacyclovir HCl (Valtrex) 1,000 mg DAILY PO ; Start 04/17/17 at 09:00 Alprazolam (Xanax) 0.5 mg Q8 PO Last administered on 04/17/17t 06:09; Admin Dose 0.5 MG; Start 04/17/17 at 06:00 Miscellaneous Information (* Miscellaneous Pharmacy Order) Patient has Medtron... ONCE XX ; Start 04/17/17 at 05:30; Status UNV Atorvastatin Calcium (Lipitor) 40 mg HS PO ; Start 04/17/17 at 21:00 JOSE SINGH MD Apr 17, 2017 07:05
[2017-04-17] MEDS: CYCLOBENZAPRINE 10 MG TAB PO SCH ×3 (08:05→20:10)
[2017-04-17] MEDS: RIFAMPIN 300 MG CAP PO SCH (08:06)
[2017-04-17] MEDS: FAMOTIDINE 20 MG TAB PO SCH (08:06)
[2017-04-17] MEDS: LEVOTHYROXINE 175 MCG TAB PO SCH (08:28)
[2017-04-17] MEDS: BUPROPION (XL) 150 MG TAB PO SCH (08:28)
[2017-04-17] MEDS: LISINOPRIL 20 MG TAB PO SCH (08:29)
[2017-04-17] MEDS ORDERED: GABAPENTIN 300 MG CAP PO SCH (09:00)
[2017-04-17] MEDS: VALACYCLOVIR 500 MG TAB PO SCH (09:46)
[2017-04-17] MEDS: SOD CHLORIDE 0.9% 1,000 ML IV SCH ×3 (09:46→23:15)
[2017-04-17 10:46] LABS: BARBITURATES Negative (NEGATIVE); BENZODIAZEPINES Positive (NEGATIVE); CANNABINOIDS Positive (NEGATIVE); COCAINE Negative (NEGATIVE); OPIATES Positive (NEGATIVE)
[2017-04-17] MEDS ORDERED: SOD CHLORIDE 0.9% IVPB SCH (12:00)
[2017-04-17] MEDS: INSULIN PUMP SC SCH ×3 (12:00→21:00)
[2017-04-17] MEDS ORDERED: DAPTOMYCIN IVPB SCH (12:00)
[2017-04-17] MEDS ORDERED: LIDOCAINE 1% (MDV) 20 ML INJ ONE (12:35)
[2017-04-17] MEDS ORDERED: FENTAnyl 50 MCG/ML VIAL ONE (12:35)
[2017-04-17] MEDS ORDERED: MIDAZOLAM 1 MG/ML 2 ML INJ ONE ×2 (12:36→13:10)
[2017-04-17] MEDS ORDERED: SOD CHLORIDE 0.9% 500 ML ONE (12:36)
[2017-04-17] MEDS ORDERED: IOHEXOL 300MG/ML 30 ML BTL ONE (13:52)
[2017-04-17] MEDS: ACCU-CHEK XX SCH ×2 (14:05→19:57)
--- NOTE | 2017-04-17 14:44 | CONS ---
Date/Time of Note Date/Time of Note DATE: 04/17/17 TIME: 14:43 Consultation Date/Type/Reason Admit Date/Time Apr 17, 2017 at 02:38 Date of Consultation: Apr 17, 2017 Type of Consultation: ID Reason for Consultation R/O infected seroma and antibiotic management Social History Smoking Status: Current every day smoker Exam/Review of Systems Vital Signs Vitals Vital Signs Date Time Temp Pulse Resp B/P Pulse Ox O2 Delivery O2 Flow Rate FiO2 04/17/17 07:30 100.7 99 20 127/71 96 04/17/17 04:20 Room Air Intake and Output 04/16/17 04/16/17 04/17/17 15:00 23:00 07:00 Intake Total 2690 ml Balance 2690 ml Results Result Diagram: 04/17/17 0025 04/17/17 0025 Results 24 hrs Laboratory Tests Test 04/17/17 00:11 04/17/17 00:25 04/17/17 04:37 04/17/17 06:52 Urine Color YELLOW Urine Clarity SLIGHTLY CLOUDY A Urine pH 5.0 Urine Specific [place] 1.025 Urine Ketones TRACE A Urine Nitrite NEGATIVE Urine Bilirubin NEGATIVE Urine Urobilinogen NEGATIVE Urine Leukocyte Esterase NEGATIVE Urine Microscopic RBC 1 Urine Microscopic WBC 2 Urine Hemoglobin NEGATIVE Urine Glucose 3+ H Urine Total Protein 1+ H White Blood Count 5.2 # Red Blood Count 4.79 # Hemoglobin 14.3 # Hematocrit 42.5 # Mean Corpuscular Volume 88.7 Mean Corpuscular Hemoglobin 29.9 Mean Corpuscular Hemoglobin Concent 33.6 Red Cell Distribution Width 13.9 Platelet Count 159 # Mean Platelet Volume 12.4 H Neutrophils % 64.3 Lymphocytes % 15.7 Monocytes % 17.6 H Eosinophils % 1.0 Basophils % 1.0 Nucleated Red Blood Cells % 0.0 Neutrophils # 3.4 Lymphocytes # 0.8 Monocytes # 0.9 Eosinophils # 0.1 Basophils # 0.1 Nucleated Red Blood Cells # 0.0 Prothrombin Time 12.3 Prothrombin Time Ratio 1.0 INR International Normalized Ratio 0.91 Activated Partial Thromboplast Time 26.4 Sodium Level 134 L Potassium Level 4.9 Chloride Level 93 L Carbon Dioxide Level 26 Anion Gap 20 H Blood Urea Nitrogen 20 Creatinine 2.23 H Glucose Level 260 H Lactic Acid Level 1.3 1.3 1.4 Calcium Level 9.9 Total Bilirubin 0.1 L Direct Bilirubin 0.00 Indirect Bilirubin 0.1 Aspartate Amino Transf (AST/SGOT) 13 L Alanine Aminotransferase (ALT/SGPT) 41 Alkaline Phosphatase 58 Total Protein 7.0 Albumin 4.3 Globulin 2.70 Albumin/Globulin Ratio 1.59 Erythrocyte Sedimentation Rate 19 H C-Reactive Protein 3.3 H Test 04/17/17 08:02 04/17/17 09:22 Bedside Glucose 201 Urine Opiates Screen Positive Urine Barbiturates Negative Urine Amphetamines Screen Negative Urine Benzodiazepines Screen Positive Urine Cocaine Screen Negative Urine Cannabinoids Positive Medications Medications Current Medications Ondansetron HCl (Zofran Tab) 4 mg Q6H PRN PO NAUSEA AND/OR VOMITING; Start 04/17 at 05:30 Acetaminophen (Tylenol Tab) 650 mg Q6H PRN PO PAIN LEVEL 1-3 OR FEVER; Start at 05:30 Oxycodone/ Acetaminophen (Percocet (5/ 325)) 1 tab Q6H PRN PO MODERATE PAIN LEVEL 4-6; Start 04/17/17 at 05:30 Morphine Sulfate (morphine) 2 mg Q4H PRN IV SEVERE PAIN LEVEL 7-10 Last administered on 04/17/17 11:49; Admin Dose 2 MG; Start 04/17/17 at 05:30 Bisacodyl (Dulcolax Supp) 10 mg DAILY PRN [place] CONSTIPATION; Start 04/17/17 at 05: 30 Famotidine (Pepcid) 20 mg DAILY PO ; Start 04/17/17 at 09:00 Bupropion HCl (Wellbutrin Xl) 300 mg DAILY PO Last administered on 04/17/17 08: 28; Admin Dose 300 MG; Start 04/17/17 at 09:00 Cyclobenzaprine HCl (Flexeril) 10 mg TID PO ; Start 04/17/17 at 09:00 Gabapentin (Neurontin) 300 mg AM PO ; Start 04/17/17 at 09:00 Gabapentin (Neurontin) 600 mg DAILY PRN PO PM; Start 04/17/17 at 05:30; Status UNV Lisinopril (Zestril) 20 mg DAILY PO Last administered on 04/17/17 08:29; Admin Dose 20 MG; Start 04/17/17 at 09:00 Rifampin (Rifampin) 600 mg DAILY PO ; Start 04/17/17 at 09:00 Trazodone HCl (Desyrel) 50 mg QHS PO ; Start 04/17/17 at 21:00 Valacyclovir HCl (Valtrex) 1,000 mg DAILY PO Last administered on 04/17/17 09: 46; Admin Dose 1,000 MG; Start 04/17/17 at 09:00 Alprazolam (Xanax) 0.5 mg Q8 PO Last administered on 04/17/17 06:09; Admin Dose 0.5 MG; Start 04/17/17 at 06:00 Atorvastatin Calcium 40 mg 40 mg HS PO ; Start 04/17/17 at 21:00 Sodium Chloride 1,000 ml @ 100 mls/hr Q10H IV Last administered on 04/17/17 09 :46; Admin Dose 100 MLS/HR; Start 04/17/17 at 09:00 Daptomycin/Sodium Chloride (Cubicin/NS) 100 ml @ 200 mls/hr Q24H IVPB ; Start 04/17/17 at 12:00 ALBERT ROBERTS MD Apr 17, 2017 14:44
--- NOTE | 2017-04-17 15:59 | CONS ---
DATE OF ADMISSION: 04/17/2017 DATE OF CONSULTATION: 04/17/2017 REASON FOR CONSULTATION: Antibiotic management. HISTORY OF PRESENT ILLNESS: Eduardo Fonseca is a 36-year-old male, well known to us from previous admission. The patient recently was admitted to the hospital. He has a history of diabetes mellitus. He had an L5-S1 laminectomy for spinal stenosis with epidural lipomatosis. This was complicated with a dural tear on 01/12/2017. He underwent repair of the dural defect on 03/09/2017. He had postoperative infection with MRSA. He underwent I and D of his lumbar wound on 03/23/2017. He has been followed by myself and has completed a two-week course of IV antibiotics for MRSA. He has been on oral Bactrim. He presented to the emergency room on 04/16/2017, because of fever, nausea and general malaise. He was found to be very dehydrated and MRI of lumbar spine was ordered to evaluate for possible discitis or epidural abscess. He had a low-grade temp of 99.6 on admission but has been afebrile since. Denies any issues with bowel or bladder control. On admission, his white count was 5.2, H and H 14.3 and 42.5, platelet count 159,000. BUN and creatinine were 20/2.23. Lumbar spine MRI shows postoperative changes at L5-S1 with well-defined fluid collection in the posterior paraspinal musculature and surgical defect which is external to the thecal sac. Infection of this fluid collection is not excluded. Small diffuse L5-S1 disc protrusion without extrusion. No definite epidural abscess or osteomyelitis. Edema and postoperative changes of the subcutaneous fat and posterior paraspinal musculature. PAST MEDICAL HISTORY: Operations as outlined. FAMILY HISTORY: Noncontributory. SOCIAL HISTORY: He does not smoke, drink, or abuse drugs. ALLERGIES: NONE TO PENICILLIN, SULFA, OR FOODS. MEDICATION: Per chart. REVIEW OF SYSTEMS: As per HPI. PHYSICAL EXAMINATION: GENERAL: Patient is a well-developed, well-nourished male who is alert, responsive in no acute distress. VITAL SIGNS: Stable. He is afebrile. SKIN: Without generalized rash. SHEENT: Within normal limits. NECK: Supple. Lymph nodes nonpalpable. CHEST: Decreased breath sounds at the bases. HEART: Without murmur or gallop. ABDOMEN: Soft. Nontender, without organomegly, splenomegaly or masses. EXTREMITIES: Without cyanosis, clubbing, or edema. RECTAL AND GENITAL: Exams deferred. NEUROLOGICAL: No focal neurological abnormality. IMPRESSION AND PLAN: The patient has what appears to be a seroma in the area of lumbar spine with postsurgical fluid collection. I think it would be worthwhile for CT-guided IR drainage to rule out infected seroma. We would have held off on antibiotic therapy but the patient is already on daptomycin and rifampin for his MRSA. He was given one dose of vancomycin and one dose of cefepime in the emergency room. I will dictate my findings to Dr. Burnette and to Dr. Horvath. Dictated By: Uday Narvaez MD JD/leandro/tammie /Document#: [id number]
--- NOTE | 2017-04-17 17:32 | RADRPT ---
PROCEDURE: CT guided lumbar fluid collection aspiration, injection, and blood patch placement. CLINICAL INDICATION: Fluid collection at the L5 level posteriorly. Postop. TECHNIQUE: Informed consent was obtained. The procedure, risks, benefits, complications and alternatives were explained to the patient. Risks including bleeding and infection were explained. The patient underst ood and was willing to proceed. A procedural pause was performed. The patient's name, date of , and procedure to be performed were verified. One or more of the following dose reduction techniq ues were used: Automated exposure control, adjustment of the mA and/or kV according to patient size, use of iterative reconstruction technique. Using local anesthetic, sterile technique and CT guidance, a 19-gauge Yueh needle was advanced into the fluid collection in the lower lumbar spine region posteriorly. CT scan was performed confirming position. Serous fluid was also aspirated confirming position. The needle from the Yueh catheter was removed, leaving the Yueh catheter in place within the fluid collection. A 0.035-inch Amplatz g uidewire was advanced through the Yueh catheter into the fluid collection. The Yueh catheter was re moved. The tract was dilated to 8-Kyrgyz. An 8.5 Kyrgyz Cheema-Alcocer drainage catheter was advan nimco over the guidewire into the fluid collection. The guidewire was removed. Additional scanning w as performed confirming position. Since the fluid then turned relatively clear, diluted Omnipaque-30 0 was injected into the catheter and additional imaging was performed. Additional images demonstrat e contrast within the dural space indicating that the posterior fluid collection is due to a dural leak. The spine surgery Dr. Horvath was consulted. At his request, a blood patch was performed vi a the tube by injecting 10 ml of the patient's blood obtained from his right forearm vein. The drai nage catheter was then removed. A dressing was applied. The patient tolerated procedure well. COMPARISON: MRI of the lumbar spine dated 04/17/2017. FINDINGS: Initial images demonstrate the needle in position within the posterior fluid collection. Subsequent images demonstrate a drainage catheter in position within the fluid collection. Images following c ontrast injection demonstrate contrast within the cavity posteriorly extending into the dural sac an d surrounding perforate seen in the L5-S1 region. IMPRESSION: 1. Drainage and injection of the fluid collection posteriorly at the L5 level demonstrates communica tion with the dural sac. A blood patch was performed. No drainage catheter was left in place. RPTAT: QQ .Jeff Chowdhury MD, Date Time Electronically viewed and signed by .Jeff Chowdhury MD, MD on 04/17/2017 17:31 .R/
--- NOTE | 2017-04-17 17:54 | HP ---
Date/Time of Note Date/Time of Note DATE: 04/17/17 TIME: 17:46 Assessment/Plan VTE Prophylaxis VTE Prophylaxis Intervention: ambulation Lines/Catheters IV Catheter Type (from Nrsg): Saline Lock Assessment/Plan Problems: (1) Diabetes mellitus type 1 Status: Chronic Comment: He is maintained on insulin pump is doing well with this. We will continue him with his insulin pump protocol. Please note that he follows up specifically with his long-term tungsten tender Dr. Jasiel SILVA. I will assist while he is in the hospital. He does decline come to my office as an outpatient at this time. Qualifiers: Diabetes mellitus complication status: with unspecified complications Qualified Code: E10.8 - Type 1 diabetes mellitus with complication (2) Essential hypertension Status: Chronic Comment: Adequate control (3) Hyperlipidemia Status: Chronic Comment: Continue statin therapy Qualifiers: Hyperlipidemia type: pure hypercholesterolemia Qualified Code: E78.00 - Pure hypercholesterolemia (4) Asthma, moderate persistent Status: Chronic Comment: Quiescent and controlled (5) Moderate late onset dysthymic disorder, in partial remission, with anxious distress, with intermittent major depressive episodes, with current episode Status: Chronic Comment: Continue with medications. Please not have counseled the patient extensively that the usage of medical marijuana is contrary to the therapy of this particular diagnosis (6) Hypothyroidism Status: Chronic Comment: Continue with levothyroxine replacement therapy Qualifiers: Hypothyroidism type: acquired Qualified Code: E03.9 - Acquired hypothyroidism (7) Pseudomeningocele, acquired Status: Acute Comment: As per orthopedic surgery-spinal surgery (8) Acute kidney injury Status: Acute Comment: Recheck BUN and creatinine post hydration HPI/ROS Admit Date/Time Admit Date/Time Apr 17, 2017 at 02:38 Hx of Present Illness This is the third recent [facility] admission for this 36-year -old right-handed male with a long history of diabetes mellitus type 1. He was admitted to the hospital roughly 4-5-1/2 months ago for lumbar disc disease and had spinal surgery. He developed a CSF leak after lifting heavy weights post operatively. He underwent surgical clearance of this but then developed an MR SA infection. He was treated with antibiotics and sent home. Please note his primary physician is Dr. Jasiel Silva who manages his insulin pump. He reports that he has been using Percocet for pain and his alprazolam for anxiety. He flatly denies any exposure to marijuana or marijuana products. (Please see tox screen) patient states that he has not been doing any lifting. He had a hypoglycemic induced seizure and loosened up his sugar control on his pump. He however was not feeling well and Dr. todd Villalta requested he be admitted to verify that there is not worsening infection. ROS Constitutional: no complaints (Denies fevers chills or sweats) Eyes: no complaints ENT: no complaints Respiratory: no complaints Cardiovascular: no complaints Gastrointestinal: no complaints Genitourinary: no complaints Musculoskeletal: no complaints Skin: no complaints Neurologic: no complaints Psychological: anxiety (Severe anxiety disorder) PMH/Family/Social Past Medical History 1) diabetes mellitus type 1; 2) severe anxiety disorder 3) lumbar spinal disc disease; 4) asthma persistent moderate; 5) tobacco abuse Medical History: high cholesterol, hypertension, hypothyroid Past Surgical History Status post lumbar laminectomy with subsequent repair of the spinal dural leak Family History Significant Family History: no pertinent family hx Social History Alcohol Use: occasionally Smoking Status: Current every day smoker Drug Use: marijuana (Please note the patient denies any history of marijuana. On close questioning once informed of the positive test result does admit that he uses once long ago.) Exam/Review of Systems Vital Signs Vitals Vital Signs Date Time Temp Pulse Resp B/P Pulse Ox O2 Delivery O2 Flow Rate FiO2 04/17/17 15:17 99.5 101 20 114/70 96 04/17/17 04:20 Room Air Intake and Output 04/16/17 04/16/17 04/17/17 15:00 23:00 07:00 Intake Total 2690 ml Balance 2690 ml Exam Constitutional: alert, oriented Neck: non-tender, supple Respiratory: clear to auscultation, normal air movement Cardiovascular: nl pulses, regular rate and rhythm Gastrointestinal: nl liver, spleen, non-tender, soft Extremities: normal pulses Labs Result Diagram: 04/17/17 0025 04/17/17 0025 Medications Medications Current Medications Ondansetron HCl (Zofran Tab) 4 mg Q6H PRN PO NAUSEA AND/OR VOMITING; Start 04/17 at 05:30 Acetaminophen (Tylenol Tab) 650 mg Q6H PRN PO PAIN LEVEL 1-3 OR FEVER Last administered on 04/17/17t 16:24; Admin Dose 650 MG; Start 04/17/17 at 05:30 Oxycodone/ Acetaminophen (Percocet (5/ 325)) 1 tab Q6H PRN PO MODERATE PAIN LEVEL 4-6; Start 04/17/17 at 05:30 Morphine Sulfate (morphine) 2 mg Q4H PRN IV SEVERE PAIN LEVEL 7-10 Last administered on 04/17/17 15:42; Admin Dose 2 MG; Start 04/17/17 at 05:30 Bisacodyl (Dulcolax Supp) [address] CONSTIPATION; Start 04/17/17 at 05: 30 Famotidine (Pepcid) 20 mg DAILY PO ; Start 04/17/17 at 09:00 Bupropion HCl (Wellbutrin Xl) 300 mg DAILY PO Last administered on 04/17/17 08: 28; Admin Dose 300 MG; Start 04/17/17 at 09:00 Cyclobenzaprine HCl (Flexeril) 10 mg TID PO ; Start 04/17/17 at 09:00 Gabapentin (Neurontin) 300 mg AM PO ; Start 04/17/17 at 09:00 Gabapentin (Neurontin) 600 mg DAILY PRN PO PM; Start 04/17/17 at 05:30; Status UNV Lisinopril (Zestril) 20 mg DAILY PO Last administered on 04/17/17 08:29; Admin Dose 20 MG; Start 04/17/17 at 09:00 Rifampin (Rifampin) 600 mg DAILY PO ; Start 04/17/17 at 09:00 Trazodone HCl (Desyrel) 50 mg QHS PO ; Start 04/17/17 at 21:00 Valacyclovir HCl (Valtrex) 1,000 mg DAILY PO Last administered on 04/17/17 09: 46; Admin Dose 1,000 MG; Start 04/17/17 at 09:00 Alprazolam (Xanax) 0.5 mg Q8 PO Last administered on 04/17/17 06:09; Admin Dose 0.5 MG; Start 04/17/17 at 06:00 Atorvastatin Calcium 40 mg 40 mg HS PO ; Start 04/17/17 at 21:00 Sodium Chloride 1,000 ml @ 100 mls/hr Q10H IV Last administered on 04/17/17 09 :46; Admin Dose 100 MLS/HR; Start 04/17/17 at 09:00 Daptomycin/Sodium Chloride (Cubicin/NS) 100 ml @ 200 mls/hr Q24H IVPB Last administered on 04/17/17t 15:39; Admin Dose 200 MLS/HR; Start 04/17/17 at 12:00 DANA SANTOS MD Apr 17, 2017 17:54
[2017-04-17] MEDS: OXYCODONE/ACETAMINOPHEN (5/325) TAB PO PRN (18:40)
[2017-04-17 19:42] LABS: FLD CLARITY CLOUDY; FLD COLOR RED; FLD MN% 46.1 %; FLD PMN% 53.9 %; FLD RBC 6 /uL; FLD TYPE OTHERS; FLD WBC 581 /cmm
[2017-04-17] MEDS ORDERED: ALPRAZOLAM 1 MG TAB PO PRN ×2 (20:00→21:00)
[2017-04-17 20:16] LABS: FLUID GLUCOSE 87 mg/dl; FLUID TOTAL PROTEIN < 2.0 g/dl
[2017-04-17] MEDS ORDERED: ATORVASTATIN 40 MG TAB PO SCH (21:00)
[2017-04-17] MEDS ORDERED: traZODone 50 MG TAB PO SCH (21:00)
[2017-04-18 02:00] VITALS: BP 117/74; RESP 18
[2017-04-18] MEDS: morphine 2 MG INJ IV PRN (03:34)
[2017-04-18] MEDS: SOD CHLORIDE 0.9% 1,000 ML IV SCH ×2 (05:00→08:47)
[2017-04-18 05:33] LABS: BASOPHIL # 0.1 10^3/ul (0.0-0.1); BASOPHILS % 1.3 % (0.0-2.0); EOSINOPHILS # 0.1 10^3/ul (0.0-0.5); EOSINOPHILS % 3.1 % (0.0-7.0); HEMATOCRIT 42.3 % (42.0-52.0); LYMPHOCYTES # 1.6 10^3/ul (0.8-2.9); LYMPHOCYTES % 41.5 % (15.0-51.0); MEAN CORPUSCULAR HEMOGLOBIN 29.5 pg (29.0-33.0); MEAN CORPUSCULAR HGB CONC 33.1 g/dl (32.0-37.0); MEAN CORPUSCULAR VOLUME 89.1 fl (82.0-101.0); MEAN PLATELET VOLUME 11.9 fl (7.4-10.4); MONOCYTE # 0.7 10^3/ul (0.3-0.9); MONOCYTES % 18.6 % (0.0-11.0); NEUTROPHIL # 1.3 10^3/ul (1.6-7.5); NEUTROPHILS % 35.2 % (39.0-77.0); PLATELET COUNT 128 10^3/UL (140-415); RED BLOOD COUNT 4.75 10^6/ul (4.70-6.10); RED CELL DISTRIBUTION WIDTH 13.6 % (11.5-14.5); WHITE BLOOD COUNT 3.8 10^3/ul (4.8-10.8)
[2017-04-18 05:52] LABS: ALBUMIN/GLOBULIN RATIO 1.6; BILIRUBIN,INDIRECT 0.1 mg/dl (0-1.1); BILIRUBIN,TOTAL 0.1 mg/dl (0.2-1.3); CALCIUM 9.2 mg/dl (8.4-10.2); CREATININE 1.07 mg/dl (0.61-1.24); POTASSIUM 4.7 mmol/L (3.5-5.1); TOTAL PROTEIN 6.5 g/dl (6.1-8.1)
[2017-04-18] MEDS: LEVOTHYROXINE 175 MCG TAB PO SCH (06:38)
[2017-04-18 07:29] VITALS: BP 119/65; RESP 20
[2017-04-18] MEDS: INSULIN PUMP SC SCH ×3 (07:51→17:45)
[2017-04-18] MEDS: LISINOPRIL 20 MG TAB PO SCH (08:48)
[2017-04-18] MEDS: BUPROPION (XL) 150 MG TAB PO SCH (08:48)
[2017-04-18] MEDS: CYCLOBENZAPRINE 10 MG TAB PO SCH ×2 (08:49→13:00)
[2017-04-18] MEDS: VALACYCLOVIR 500 MG TAB PO SCH (08:51)
[2017-04-18] MEDS: RIFAMPIN 300 MG CAP PO SCH (08:54)
[2017-04-18] MEDS: FAMOTIDINE 20 MG TAB PO SCH (08:54)
[2017-04-18] MEDS: ACCU-CHEK XX SCH ×2 (10:05→14:05)
--- NOTE | 2017-04-18 11:36 | CONS ---
Date/Time of Note Date/Time of Note DATE: 04/18/17 TIME: 11:26 Consultation Date/Type/Reason Admit Date/Time Apr 17, 2017 at 02:38 Type of Consultation: ID 24 HR Interval Summary Free Text/Dictation S: 36 yo male who has a past medical history significant for type 1 diabetes and anxiety. He had a L5-S1 laminectomy for spinal stenosis with epidural lipomatosis that was complicated with a dural tear on 01/12/2017. He subsequently underwent repair of the dural defect on 03/09/2017. The dural repair procedure was complicated with a post-operative MRSA infection. He underwent I&D of his lumbar wound on 03/23/2017. He has been followed by ID physician Dr. Narvaez. He has completed a 2 week course of IV abx and has been on bactrim PO. He presented to the ER 04/16/2017 because of fevers, nausea and malaise. A septic protocol was initiated. Patient was found to be very dehydrated. He was started on IV fluids. An MRI of the lumbar spine was ordered to evaluate for possible discitis or epidural abscess. He had a low grade temp of 99.6 on admission. He had no acute events over-night. He denies any saddle anesthesia, he denies any issues with bowel or bladder control. He denies any headaches. He was noted to have an elevated CRP of 3.3 and ESR of 19. It was decided with discussion with ID as well for patient to undergo IR drainage of collection. Patient had IER drainage of collection yesterday. The collection was found to communicate with the dura. A blood patch procedure was performed. He has been on bedrest. He denies any headaches since admission. He has remained afebrile today. O: Gen: AAOx3, NAD Spine: 4+/5 b/l KE/TA/GS/EHL, +SILT L3-S1 nerve distributions. Posterior midline incision is well healed without erythema or drainage Labs: WBC: 3.8 , H/H 14/42.3 BUN/Creat 10/1.07; Lumbar wound cx: Gram stain +2 WBC No organisms seen, Imaging: Chest XR: Mild cardiomegaly and pulmonary vascular congestion. MRI of Lumbar spine w/ and w/o contrast: 2.2 x 2 cm fluid collection at laminectomy site that does not communicate with the dura. No evidence of epidural abscess or diskitis. A/P:36 yo Male who has a past medical history significant for type 1 diabetes and anxiety. He had a L5-S1 laminectomy for spinal stenosis with epidural lipomatosis that was complicated with a dural tear on 01/12/2017. He subsequently underwent repair of the dural defect on 03/09/2017. The dural repair procedure was complicated with a post-operative MRSA infection. He underwent I&D of his lumbar wound on 03/23/2017. Pt admitted for observation for new onset fever. Had a draiange of collection and blood patch procedure performed. He has been afebrile this am. -Continue IV abx as per ID recs. -PICC line placement and home mauro for IV abx -D/C patient home if patient doing well and ok by ID and Medicine team Exam/Review of Systems Vital Signs Vitals Vital Signs Date Time Temp Pulse Resp B/P Pulse Ox O2 Delivery O2 Flow Rate FiO2 04/18/17 07:29 98.3 90 20 119/65 98 04/17/17 04:20 Room Air Intake and Output 04/17/17 04/17/17 04/18/17 15:00 23:00 07:00 Intake Total 100 ml 1850 ml Output Total 1200 ml 500 ml Balance -1100 ml 1350 ml Results Result Diagram: 04/18/17 0503 04/18/17 0503 Results 24 hrs Laboratory Tests Test 04/17/17 14:00 04/17/17 19:51 04/17/17 21:45 04/18/17 05:03 Body Fluid Type Body Fluid Volume 5.0 Body Fluid Color RED Body Fluid Appearance CLOUDY Body Fluid WBC 581 Body Fluid RBC (Auto) 6 Body Fluid Polynuclear WBCs (%) 53.9 Body Fluid Mononuclear Cells % Auto 46.1 Body Fluid Glucose 87 Body Fluid Total Protein < 2.0 Bedside Glucose 231 H 183 White Blood Count 3.8 #L Red Blood Count 4.75 Hemoglobin 14.0 Hematocrit 42.3 Mean Corpuscular Volume 89.1 Mean Corpuscular Hemoglobin 29.5 Mean Corpuscular Hemoglobin Concent 33.1 Red Cell Distribution Width 13.6 Platelet Count 128 L Mean Platelet Volume 11.9 H Neutrophils % 35.2 L Lymphocytes % 41.5 Monocytes % 18.6 H Eosinophils % 3.1 Basophils % 1.3 Nucleated Red Blood Cells % 0.0 Neutrophils # 1.3 L Lymphocytes # 1.6 Monocytes # 0.7 Eosinophils # 0.1 Basophils # 0.1 Nucleated Red Blood Cells # 0.0 Sodium Level 141 Potassium Level 4.7 Chloride Level 99 Carbon Dioxide Level 28 Anion Gap 19 H Blood Urea Nitrogen 10 # Creatinine 1.07 # Glucose Level 102 # Calcium Level 9.2 Total Bilirubin 0.1 L Direct Bilirubin 0.00 Indirect Bilirubin 0.1 Aspartate Amino Transf (AST/SGOT) 22 # Alanine Aminotransferase (ALT/SGPT) 42 Alkaline Phosphatase 52 Creatine Kinase 53 Total Protein 6.5 Albumin 4.0 Globulin 2.50 Albumin/Globulin Ratio 1.60 Test 04/18/17 07:50 Bedside Glucose 122 Medications Medications Current Medications Ondansetron HCl (Zofran Tab) 4 mg Q6H PRN PO NAUSEA AND/OR VOMITING; Start 04/17 at 05:30 Acetaminophen (Tylenol Tab) 650 mg Q6H PRN PO PAIN LEVEL 1-3 OR FEVER Last administered on 04/17/17 16:24; Admin Dose 650 MG; Start 04/17/17 at 05:30 Oxycodone/ Acetaminophen (Percocet (5/ 325)) 1 tab Q6H PRN PO MODERATE PAIN LEVEL 4-6 Last administered on 04/17/17 18:40; Admin Dose 1 TAB; Start 04/17/17 at 05:30 Morphine Sulfate (morphine) 2 mg Q4H PRN IV SEVERE PAIN LEVEL 7-10 Last administered on 04/18/17 03:34; Admin Dose 2 MG; Start 04/17/17 at 05:30 Bisacodyl (Dulcolax Supp) 10 mg DAILY PRN [place] CONSTIPATION; Start 04/17/17 at 05: 30 Famotidine (Pepcid) 20 mg DAILY PO ; Start 04/17/17 at 09:00 Bupropion HCl (Wellbutrin Xl) 300 mg DAILY PO Last administered on 04/18/17 08: 48; Admin Dose 300 MG; Start 04/17/17 at 09:00 Cyclobenzaprine HCl (Flexeril) 10 mg TID PO Last administered on 04/18/17 08:49 ; Admin Dose 10 MG; Start 04/17/17 at 09:00 Lisinopril (Zestril) 20 mg DAILY PO Last administered on 04/18/17 08:48; Admin Dose 20 MG; Start 04/17/17 at 09:00 Rifampin (Rifampin) 600 mg DAILY PO ; Start 04/17/17 at 09:00 Trazodone HCl (Desyrel) 50 mg QHS PO Last administered on 04/17/17 20:10; Admin Dose 50 MG; Start 04/17/17 at 21:00 Valacyclovir HCl (Valtrex) 1,000 mg DAILY PO Last administered on 04/18/17 08: 51; Admin Dose 1,000 MG; Start 04/17/17 at 09:00 Atorvastatin Calcium 40 mg 40 mg HS PO Last administered on 04/17/17 20:10; Admin Dose 40 MG; Start 04/17/17 at 21:00 Sodium Chloride (NS) 1,000 ml @ 100 mls/hr Q10H IV Last administered on 08:47; Admin Dose 100 MLS/HR; Start 04/17/17 at 09:00 Alprazolam 3 mg 3 mg QHS PRN PO ANXIETY Last administered on 04/17/17 23:13; Admin Dose 3 MG; Start 04/17/17 at 20:00 Daptomycin/Sodium Chloride (Cubicin/NS) 100 ml @ 200 mls/hr Q24H IVPB ; Start 04/18/17 at 22:00 JOSE SINGH MD Apr 18, 2017 11:36
[2017-04-18] MEDS ORDERED: LIDOCAINE 1% (MPF) 5 ML VIAL SC ONE (12:30)
--- NOTE | 2017-04-18 13:44 | CONS ---
Date/Time of Note Date/Time of Note DATE: 04/18/17 TIME: 13:40 Assessment/Plan Assessment/Plan Chief Complaint/Hosp Course ID PROGRESS NOTE TOTAL ABX DAY #2 => Daptomycin + Rifampin 24H INTERVAL SUMMARY * DMT1 w/high anxiety which creates a barrier to communication, difficulty listening and processing medical recommendations. * NO fevers, CRP of 3.3 and ESR of 19. * s/p 04/17 CT guided drainage:1. Drainage and injection of the fluid collection posteriorly at the L5 level demonstrates communication with the dural sac. A blood patch was performed. No drainage catheter was left in place. * 04/17 GS + WOUND CX: Travis: 04/17/17-1400 LUMB SPINE * GRAM STAIN Final WHITE BLOOD CELLS 2+ NO ORGANISM SEEN * WOUND CULTURE Preliminary No growth after 1 day PHYSICAL EXAMINATION: GENERAL: VSS, NAD, no fevers HEENT: Unremarkable, NECK: Supple,full ROM CHEST: Equal chest rise bilaterally, without dyspnea on observation HEART: Pulse RRR ABDOMEN: Soft, nontender EXTREMITIES: Warm, DRY SKIN: Warm, dry ID ASSESSMENT: 36 yo M Status post L5-S1 decompression on January 30, 2017, with lumbar (+)MRSA wound infection 03/25/17 admitted with: 1. SIRS vs early sepsis ->Tmax 100.7, tachycardia HR 127, WBC normal, CRP of 3.3 and ESR of 19=> due to pseudomeningocele fluid collection posterior L5 * 04/17 Blood Cx (-) 24H 2. s/p 04/17/ CT guided drainage:1. Drainage and injection of the fluid collection posteriorly at the L5 level demonstrates communication with the dural sac. A blood patch was performed. No drainage catheter was left in place. * 04/17 GS + WOUND CX: Travis: 04/17/17-1400 LUMB SPINE * GRAM STAIN Final WHITE BLOOD CELLS 2+ NO ORGANISM SEEN * WOUND CULTURE Preliminary No growth after 1 day 3. Status post CSF leak repair on March 09 and I&D of lumbar wound on March 23, 2017 * 03/25/17 Wound Cx: TISSUE (BIOPSY) CULTURE Final Organism 1 METHICILLIN RESISTANT S.[employer] QUANTITY 2+ 4. Diabetes Type I 5. Psych Dx: Depression/Anxiety 6. Hx of Hypothyroid 7. Hx of HTN INVASIVES: * PICC (03/25/17) ABX ALLERGIES: KNDA CURRENT ABX: DAY #2 => Daptomycin + Rifampin s/p Cefepime X1 ID RECOMMENDATIONS: May DC to OP follow up with surgery and Dr. Narvaez within 2 weeks on the following ABX: * 1. He will need PICC line w/ 6 weeks Daptomycin 6mg/KG daily dose per pharmacy * Hold Statin while on DAPTO; check CPK, CBC, Bun,S.Creatinine, ESR,CRP weekly * 2.Rifampin 600mg PO daily x 42 days . Problems: Consultation Date/Type/Reason Admit Date/Time Apr 17, 2017 at 02:38 Initial Consult Date 04/17/17 Type of Consultation: ID Exam/Review of Systems Vital Signs Vitals Vital Signs Date Time Temp Pulse Resp B/P Pulse Ox O2 Delivery O2 Flow Rate FiO2 04/18/17 07:29 98.3 90 20 119/65 98 04/17/17 04:20 Room Air Intake and Output 04/17/17 04/17/17 04/18/17 14:59 22:59 06:59 Intake Total 100 ml 1850 ml Output Total 1200 ml 500 ml Balance -1100 ml 1350 ml Results Result Diagram: 04/18/17 0503 04/18/17 0503 Results 24 hrs Laboratory Tests Test 04/17/17 14:00 04/17/17 19:51 04/17/17 21:45 04/18/17 05:03 Body Fluid Type Body Fluid Volume 5.0 Body Fluid Color RED Body Fluid Appearance CLOUDY Body Fluid WBC 581 Body Fluid RBC (Auto) 6 Body Fluid Polynuclear WBCs (%) 53.9 Body Fluid Mononuclear Cells % Auto 46.1 Body Fluid Glucose 87 Body Fluid Total Protein < 2.0 Bedside Glucose 231 H 183 White Blood Count 3.8 #L Red Blood Count 4.75 Hemoglobin 14.0 Hematocrit 42.3 Mean Corpuscular Volume 89.1 Mean Corpuscular Hemoglobin 29.5 Mean Corpuscular Hemoglobin Concent 33.1 Red Cell Distribution Width 13.6 Platelet Count 128 L Mean Platelet Volume 11.9 H Neutrophils % 35.2 L Lymphocytes % 41.5 Monocytes % 18.6 H Eosinophils % 3.1 Basophils % 1.3 Nucleated Red Blood Cells % 0.0 Neutrophils # 1.3 L Lymphocytes # 1.6 Monocytes # 0.7 Eosinophils # 0.1 Basophils # 0.1 Nucleated Red Blood Cells # 0.0 Sodium Level 141 Potassium Level 4.7 Chloride Level 99 Carbon Dioxide Level 28 Anion Gap 19 H Blood Urea Nitrogen 10 # Creatinine 1.07 # Glucose Level 102 # Calcium Level 9.2 Total Bilirubin 0.1 L Direct Bilirubin 0.00 Indirect Bilirubin 0.1 Aspartate Amino Transf (AST/SGOT) 22 # Alanine Aminotransferase (ALT/SGPT) 42 Alkaline Phosphatase 52 Creatine Kinase 53 Total Protein 6.5 Albumin 4.0 Globulin 2.50 Albumin/Globulin Ratio 1.60 Test 04/18/17 07:50 04/18/17 11:38 Bedside Glucose 122 160 Medications Medications Current Medications Ondansetron HCl (Zofran Tab) 4 mg Q6H PRN PO NAUSEA AND/OR VOMITING; Start 04/17 at 05:30 Acetaminophen (Tylenol Tab) 650 mg Q6H PRN PO PAIN LEVEL 1-3 OR FEVER Last administered on 04/17/17 16:24; Admin Dose 650 MG; Start 04/17/17 at 05:30 Oxycodone/ Acetaminophen (Percocet (5/ 325)) 1 tab Q6H PRN PO MODERATE PAIN LEVEL 4-6 Last administered on 04/17/17 18:40; Admin Dose 1 TAB; Start 04/17/17 at 05:30 Morphine Sulfate (morphine) 2 mg Q4H PRN IV SEVERE PAIN LEVEL 7-10 Last administered on 04/18/17 03:34; Admin Dose 2 MG; Start 04/17/17 at 05:30 Bisacodyl (Dulcolax Supp) 10 mg DAILY PRN IN CONSTIPATION; Start 04/17/17 at 05: 30 Famotidine (Pepcid) 20 mg DAILY PO ; Start 04/17/17 at 09:00 Bupropion HCl (Wellbutrin Xl) 300 mg DAILY PO Last administered on 04/18/17 08: 48; Admin Dose 300 MG; Start 04/17/17 at 09:00 Cyclobenzaprine HCl (Flexeril) 10 mg TID PO Last administered on 04/18/17 08:49 ; Admin Dose 10 MG; Start 04/17/17 at 09:00 Lisinopril (Zestril) 20 mg DAILY PO Last administered on 04/18/17 08:48; Admin Dose 20 MG; Start 04/17/17 at 09:00 Rifampin (Rifampin) 600 mg DAILY PO ; Start 04/17/17 at 09:00 Trazodone HCl (Desyrel) 50 mg QHS PO Last administered on 04/17/17 20:10; Admin Dose 50 MG; Start 04/17/17 at 21:00 Valacyclovir HCl (Valtrex) 1,000 mg DAILY PO Last administered on 04/18/17 08: 51; Admin Dose 1,000 MG; Start 04/17/17 at 09:00 Atorvastatin Calcium 40 mg 40 mg HS PO Last administered on 04/17/17 20:10; Admin Dose 40 MG; Start 04/17/17 at 21:00 Sodium Chloride (NS) 1,000 ml @ 100 mls/hr Q10H IV Last administered on 08:47; Admin Dose 100 MLS/HR; Start 04/17/17 at 09:00 Alprazolam 3 mg 3 mg QHS PRN PO ANXIETY Last administered on 04/17/17 23:13; Admin Dose 3 MG; Start 04/17/17 at 20:00 Daptomycin/Sodium Chloride (Cubicin/NS) 100 ml @ 200 mls/hr Q24H IVPB ; Start 04/18/17 at 22:00 KWESI SHUKLA NP Apr 18, 2017 13:44
--- NOTE | 2017-04-18 14:28 | RADRPT ---
PROCEDURE: XR Chest. CLINICAL INDICATION: Check PICC line position. TECHNIQUE: Single frontal view. COMPARISON: 04/17/2017. FINDINGS: There is a left arm PICC line with the tip in the cavoatrial junction region. The lungs are clear. The heart size is normal. There is no pleural effusion. There is no pneumothorax. IMPRESSION: 1. Left arm PICC line tip in satisfactory position. 2. Otherwise normal chest radiograph. RPTAT: QQ .Jeff Chowdhury MD, MD Date Time Electronically viewed and signed by .Jeff Chowdhury MD, MD on 04/18/2017 14:28 .R/
[2017-04-18 14:34] VITALS: BP 122/71; RESP 20
--- NOTE | 2017-04-18 16:41 | RADRPT ---
PROCEDURE: US guidance for PICC line CLINICAL INDICATION: PICC line placement TECHNIQUE: Multiple real-time images were acquired of the patient's arm utilizing a high resolutio n transducer. This was performed by the PICC line nurse for venous access. COMPARISON: None FINDINGS: Ultrasound guidance for PICC line placement. IMPRESSION: Ultrasound guidance for PICC line placement. RPTAT: AA .Unruly Ace MD, MD Date Time Electronically viewed and signed by .Unruly Ace MD, on 04/18/2017 16:40 .S/
[2017-04-18] MEDS ORDERED: SOD CHLORIDE 0.9% 100 ML ONE (17:56)
[2017-04-18] MEDS: OXYCODONE/ACETAMINOPHEN (5/325) TAB PO PRN (18:07)
[2017-04-18] MEDS ORDERED: DAPTOMYCIN IVPB SCH (22:00)
[2017-04-18] MEDS ORDERED: SOD CHLORIDE 0.9% IVPB SCH (22:00)
== END 2017-04-18 18:15 | disposition home health service (06) | DRG 92 ==
LOC: E/R 23:59 → MS2 04-17 02:38
PROVIDERS: ADMIT Internal Medicine; ATTEND Internal Medicine
PROC: 009U3ZX Drainage of Spinal Canal, Percutaneous Approach, Diagnostic (ICD-10-PCS; principal; 2017-04-17)
PROC: 3E0R3GC Introduction of Other Therapeutic Substance into Spinal Canal, Percutaneous Approach (ICD-10-PCS; 2017-04-17)
PROC: 02HV33Z Insertion of Infusion Device into Superior Vena Cava, Percutaneous Approach (ICD-10-PCS; 2017-04-18)
DX: G97.82 Other postprocedural complications and disorders of nervous system (principal); N17.9 Acute kidney failure, unspecified; R65.10 Systemic inflammatory response syndrome (SIRS) of non-infectious origin without acute organ dysfunction; E10.65 Type 1 diabetes mellitus with hyperglycemia; G96.19 Other disorders of meninges, not elsewhere classified; E86.0 Dehydration; L76.34 Postprocedural seroma of skin and subcutaneous tissue following other procedure; R50.82 Postprocedural fever; Z79.4 Long term (current) use of insulin; G89.18 Other acute postprocedural pain; Z72.0 Tobacco use; F41.9 Anxiety disorder, unspecified
CPT/HCPCS: 36415; 36569; 71010; 72158; 75989; 76937; 77012; 80053; 80307; 81001; 82550; 82945; 82962; 83605; 84157; 85025; 85610; 85651; 85730; 86140; 87040; 87070; 87075; 87086; 87102; 88104; 89051; 96365; 96375; 97161; J0692; J2250; J2270; J2405; J3010; J3370; J7030; J7040; Q9967